=== PATIENT | female | born 1965 | race Caucasian/White ===

== ENCOUNTER 2024-07-07 21:49 | Inpatient (IN) | payer MEDICARE, MEDICAID, SELFPAY ==
[2024-07-07 22:20] VITALS: RESP 18
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
[2024-07-08] MEDS: hydrOXYzine HCL 25 MG TABLET PO (06:15)
[2024-07-08] MEDS: Levothyroxine Sodium 175 MCG TABLET PO (06:15)
[2024-07-08 08:00] VITALS: BP 170/87; PULSE 87; RESP 20; TEMP 36.6; O2SAT 93
[2024-07-08 08:12] LABS: Glucose, Whole Blood 160 mg/dL (60-115)
[2024-07-08] MEDS: Acetaminophen 325 MG TABLET 650 MG PO (08:25)
[2024-07-08] MEDS: Gabapentin 300 MG CAPSULE PO ×3 (08:26→20:21)
[2024-07-08] MEDS: metFORMIN HCl 1,000 MG TABLET 2000 MG PO ×2 (08:26→16:47)
[2024-07-08] MEDS: Cholecalciferol (Vitamin D3) 10 MCG TABLET 20 MCG PO (08:30)
[2024-07-08] MEDS: Aspirin 81 MG TAB.CHEW PO (08:30)
[2024-07-08] MEDS: Omeprazole 20 MG CAPSULE.DR PO (08:30)
[2024-07-08] MEDS: Loratadine 10 MG TABLET PO (08:30)
[2024-07-08] MEDS: amantadine HCL 100 MG CAPSULE PO ×3 (09:03→20:21)
[2024-07-08] MEDS: SITagliptin Phosphate 100 MG TABLET PO (09:46)
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
[2024-07-08] MEDS: Vortioxetine Hydrobromide 10 MG TABLET PO (16:46)
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
[2024-07-08 20:00] VITALS: BP 161/101; PULSE 90; RESP 16; TEMP 36.6; O2SAT 100
[2024-07-08 20:20] VITALS: BP 161/101
[2024-07-08] MEDS: Prazosin HCL 1 MG CAPSULE PO (20:20)
[2024-07-08] MEDS: Zolpidem Tartrate 5 MG TABLET 10 MG PO (20:20)
[2024-07-08] MEDS: QUEtiapine Fumarate 400 MG TABLET 800 MG PO (20:21)
[2024-07-08] MEDS: LORazepam 1 MG TABLET 2 MG PO (20:21)
[2024-07-08 20:46] LABS: Glucose, Whole Blood 147 mg/dL (60-115)
[2024-07-09] MEDS: Levothyroxine Sodium 175 MCG TABLET PO (06:22)
[2024-07-09 07:30] VITALS: BP 110/56; PULSE 98; RESP 14; TEMP 36.8; O2SAT 93
[2024-07-09 07:53] LABS: Glucose, Whole Blood 137 mg/dL (60-115)
[2024-07-09] MEDS: Aspirin 81 MG TAB.CHEW PO (08:26)
[2024-07-09] MEDS: amantadine HCL 100 MG CAPSULE PO ×3 (08:26→20:12)
[2024-07-09] MEDS: metFORMIN HCl 1,000 MG TABLET 2000 MG PO ×2 (08:26→17:41)
[2024-07-09] MEDS: Loratadine 10 MG TABLET PO (08:26)
[2024-07-09] MEDS: Omeprazole 20 MG CAPSULE.DR PO (08:26)
[2024-07-09] MEDS: SITagliptin Phosphate 100 MG TABLET PO (08:26)
[2024-07-09] MEDS: Cholecalciferol (Vitamin D3) 10 MCG TABLET 20 MCG PO (08:26)
[2024-07-09] MEDS: Atorvastatin Calcium 80 MG TABLET PO (08:26)
[2024-07-09] MEDS: Gabapentin 300 MG CAPSULE PO ×3 (08:26→20:12)
--- NOTE | 2024-07-09 09:09 | P.PNPSI_ITS ---
Subjective Subjective Date of Service: 07/09/24 Reason For Visit: PTSD Shabbirine Personality DO Subjective Notes: Conditional Voluntary Interim History: The nursing staff reported the patient was guarded, showed full range of affect but with poor appetite. She was assessed by PT yesterday, she is using her walker. She slept well last night but she admitted to the staff that she is scared to go to sleep due to nightmares. She was assessed by the medical team, she had an exploratory laparoscopy and apparently she has some stitches. On interview the patient denies new symptoms. I offered an increase of her prazosin to target nightmares but she reported that she is doing okay. Her main complaint niece that she could not sleep since her roommate yells at night Mental Status Exam Mental Status Exam Patient Appearance: Well Grooomed Patient Orientation: Person and Situation Level of Consciousness: Awake and Appropriate Patient Behavior: Guarded and Passive Mood Description: Withdrawn Affect Description: Constricted Patient Cognition Impaired: Yes Ability to Follow Directions: Good Speech Pattern: Clear Hallucinations: None Delusions: Not Present Thought Process: Distracted and Slowed Thinking Thought Content: positive for [place] and positive for Poverty of Content Judgement: Fair Diagnostics Vital Signs (24Hr): Vital Signs - 24 hr 07/08/24 20:00 07/08/24 20:20 07/09/24 07:30 Temperature 97.8 F 98.3 F Pulse Rate 90 98 Respiratory Rate 16 14 Blood Pressure 161/101 H 161/101 H 110/56 L Pulse Oximetry 100 93 Oxygen Delivery Method Room Air Room Air Labs Labs: Laboratory Results - last 48 hr 07/08/24 07/08/24 07/09/24 08:07 20:41 07:49 POC Glucose 160 H 147 H 137 H Medications Medications Current Medications Acetaminophen (Acetaminophen 325 Mg Tablet) 650 mg PO Q6H PRN PRN Reason: Headache/Pain, Scale 1-10 Last Admin: 07/08/24 08:25 Dose: 650 mg Al Hydroxide/Mg Hydroxide (Magnesium Hydrox/Alum Hydrox 30 Ml Oral.Susp) 30 ml PO Q6H PRN PRN Reason: Heartburn/Nausea Amantadine HCl (Amantadine Hcl 100 Mg Capsule) 100 mg PO TID [facility] Last Admin: 07/09/24 08:26 Dose: 100 mg Aspirin (Aspirin 81 Mg Tab.Chew) 81 mg PO DAILY [facility] Last Admin: 07/09/24 08:26 Dose: 81 mg Atorvastatin Calcium (Atorvastatin Calcium 80 Mg Tablet) 80 mg PO DAILY [facility] Last Admin: 07/09/24 08:26 Dose: 80 mg Gabapentin (Gabapentin 300 Mg Capsule) 300 mg PO TID [facility] Last Admin: 07/09/24 08:26 Dose: 300 mg Hydroxyzine HCl (Hydroxyzine Hcl 25 Mg Tablet) 25 mg PO Q6H PRN PRN Reason: mild anxiety Last Admin: 07/08/24 06:15 Dose: 25 mg Levothyroxine Sodium (Levothyroxine Sodium 175 Mcg Tablet) 175 mcg PO DAILY@0600 [facility] Last Admin: 07/09/24 06:22 Dose: 175 mcg Loperamide HCl (Loperamide Hcl 2 Mg Capsule) 2 mg PO Q6H PRN PRN Reason: Diarrhea Loratadine (Loratadine 10 Mg Tablet) 10 mg PO DAILY [facility] Last Admin: 07/09/24 08:26 Dose: 10 mg Lorazepam (Lorazepam 1 Mg Tablet) 2 mg PO BEDTIME PRN PRN Reason: insomnia Last Admin: 07/08/24 20:21 Dose: 2 mg Magnesium Hydroxide (Milk Of Magnesia 30 Ml Oral.Susp) 30 ml PO DAILY PRN PRN Reason: Constipation Metformin HCl (Metformin Hcl 1,000 Mg Tablet) 2,000 mg PO BIDWM [facility] Last Admin: 07/09/24 08:26 Dose: 2,000 mg Nicotine Polacrilex (Nicotine Polacrilex 2 Mg Gum) 4 mg BUCCAL Q2H PRN PRN Reason: Nicotine Cravings Omeprazole (Omeprazole 20 Mg Capsule.Dr) 20 mg PO DAILY [facility] Last Admin: 07/09/24 08:26 Dose: 20 mg Ondansetron HCl (Ondansetron Odt 4 Mg Tab.Rapdis) 4 mg TRANSLINGU Q6H PRN PRN Reason: Nausea and Vomiting Prazosin HCl (Prazosin Hcl 1 Mg Capsule) 2 mg PO ONCE ONE; Protocol Stop: 07/09/24 21:01 Prazosin HCl (Prazosin Hcl 1 Mg Capsule) 3 mg PO BEDTIME [facility]; Protocol Quetiapine Fumarate (Quetiapine Fumarate 400 Mg Tablet) 800 mg PO BEDTIME [facility] Last Admin: 07/08/24 20:21 Dose: 800 mg Sitagliptin Phosphate (Sitagliptin Phosphate 100 Mg Tablet) 100 mg PO DAILY [facility] Last Admin: 07/09/24 08:26 Dose: 100 mg Vitamin D (Cholecalciferol (Vitamin D3) 10 Mcg Tablet) 20 mcg PO DAILY [facility] Last Admin: 07/09/24 08:26 Dose: 20 mcg Vortioxetine (Vortioxetine Hydrobromide 10 Mg Tablet) 10 mg PO DAILY@1600 [facility] Last Admin: 07/08/24 16:46 Dose: 10 mg Zolpidem Tartrate (Zolpidem Tartrate 5 Mg Tablet) 10 mg PO BEDTIME [facility] Last Admin: 07/08/24 20:20 Dose: 10 mg Allergies Allergies Allergy/AdvReac Type Severity Reaction Status Date / Time ketorolac Allergy Unknown HEADACHES Unverified 01/26/20 17:28 lithium Allergy Unknown UNKNOWN Unverified 01/26/20 17:28 meperidine Allergy Unknown NAUSEA/VOMI Unverified 01/26/20 17:28 TING risperidone Allergy Unknown UNKNOWN Unverified 01/26/20 17:28 bee pollen Allergy Unknown Verified 07/07/24 22:04 bee venom protein (honey bee) Allergy Unknown Verified 07/07/24 22:04 bupropion Allergy Unknown Verified 07/07/24 22:04 chlorproethazine Allergy Unknown Verified 07/07/24 22:04 chlorpromazine Allergy Unknown Verified 07/07/24 22:04 lurasidone Allergy Unknown Verified 07/07/24 22:04 mirtazapine Allergy Unknown Verified 07/07/24 22:04 thioridazine [From Mellaril] Allergy Unknown Verified 07/07/24 22:04 ziprasidone Allergy Unknown Verified 07/07/24 22:04 Assessment & Plan Assessment & Plan (1) Borderline personality disorder: Status: Acute Code(s): F60.3 - Borderline personality disorder (2) Chronic post-traumatic stress disorder (PTSD): Status: Acute Code(s): F43.12 - Post-traumatic stress disorder, chronic Plan continue home regimen. POC for DM monitoring. zofran PRN n/v. PT eval for need for walker. prazosin titration for nightmares and insomnia. Reason for continued inpatient stay Substantial Risk for: inability to function, rapid decompensation and med/psych decompensation Time Spent With Patient Time: Total time managing care of this patient today ___20_ minutes.
[2024-07-09] MEDS: Ondansetron ODT 4 MG TAB.RAPDIS TRANSLINGU (11:32)
[2024-07-09] MEDS: Loperamide HCl 2 MG CAPSULE PO ×2 (11:32→17:41)
[2024-07-09] MEDS: Vortioxetine Hydrobromide 10 MG TABLET PO (17:41)
[2024-07-09 20:00] VITALS: BP 122/64; PULSE 90; RESP 15; TEMP 36.3; O2SAT 95
[2024-07-09 20:12] VITALS: BP 122/64
[2024-07-09] MEDS: QUEtiapine Fumarate 400 MG TABLET 800 MG PO (20:12)
[2024-07-09] MEDS: LORazepam 1 MG TABLET 2 MG PO (20:12)
[2024-07-09] MEDS: Prazosin HCL 1 MG CAPSULE 2 MG PO (20:12)
[2024-07-09] MEDS: Zolpidem Tartrate 5 MG TABLET 10 MG PO (20:13)
[2024-07-09 20:20] LABS: Glucose, Whole Blood 129 mg/dL (60-115)
[2024-07-10] MEDS: Levothyroxine Sodium 175 MCG TABLET PO (06:03)
[2024-07-10 07:59] VITALS: BP 102/52; PULSE 106; RESP 14; TEMP 36.3; O2SAT 96
[2024-07-10] MEDS: amantadine HCL 100 MG CAPSULE PO (08:28)
[2024-07-10] MEDS: SITagliptin Phosphate 100 MG TABLET PO (08:28)
[2024-07-10] MEDS: Omeprazole 20 MG CAPSULE.DR PO (08:28)
[2024-07-10] MEDS: Cholecalciferol (Vitamin D3) 10 MCG TABLET 20 MCG PO (08:28)
[2024-07-10] MEDS: Atorvastatin Calcium 80 MG TABLET PO (08:28)
[2024-07-10] MEDS: Acetaminophen 325 MG TABLET 650 MG PO (08:28)
[2024-07-10] MEDS: Aspirin 81 MG TAB.CHEW PO (08:28)
[2024-07-10] MEDS: metFORMIN HCl 1,000 MG TABLET 2000 MG PO (08:28)
[2024-07-10] MEDS: Gabapentin 300 MG CAPSULE PO (08:29)
[2024-07-10] MEDS: Loperamide HCl 2 MG CAPSULE PO (08:29)
[2024-07-10] MEDS: Loratadine 10 MG TABLET PO (08:29)
--- NOTE | 2024-07-10 08:52 | P.PNPSI_ITS ---
Subjective Subjective Date of Service: 07/10/24 Reason For Visit: PTSD Rambo Personality DO Subjective Notes: Conditional Voluntary Interim History: The nursing staff reported the patient denies depression she had been medication compliant and attended groups. She slept poorly last night since her roommate was loud. She had diarrhea. On interview the patient reports that she is anxious and dysphoric upset about her poor sleep. Mental Status Exam Mental Status Exam Patient Appearance: Appropriate Patient Orientation: Person and Situation Level of Consciousness: Awake and Appropriate Patient Behavior: Guarded and Passive Mood Description: Withdrawn Affect Description: Constricted Patient Cognition Impaired: Yes Ability to Follow Directions: Good Speech Pattern: Clear Hallucinations: None Delusions: Not Present Thought Process: Goal Oriented Thought Content: positive for [place] and positive for Poverty of Content Judgement: Poor Diagnostics Vital Signs (24Hr): Vital Signs - 24 hr 07/09/24 20:00 07/09/24 20:12 07/10/24 07:59 Temperature 97.4 F 97.3 F Pulse Rate 90 106 H Respiratory Rate 15 14 Blood Pressure 122/64 122/64 102/52 L Pulse Oximetry 95 96 Oxygen Delivery Method Room Air Room Air Labs Labs: Laboratory Results - last 48 hr 07/08/24 07/09/24 07/09/24 20:41 07:49 20:11 POC Glucose 147 H 137 H 129 H Medications Medications Current Medications Acetaminophen (Acetaminophen 325 Mg Tablet) 650 mg PO Q6H PRN PRN Reason: Headache/Pain, Scale 1-10 Last Admin: 07/10/24 08:28 Dose: 650 mg Al Hydroxide/Mg Hydroxide (Magnesium Hydrox/Alum Hydrox 30 Ml Oral.Susp) 30 ml PO Q6H PRN PRN Reason: Heartburn/Nausea Amantadine HCl (Amantadine Hcl 100 Mg Capsule) 100 mg PO TID [facility] Last Admin: 07/10/24 08:28 Dose: 100 mg Aspirin (Aspirin 81 Mg Tab.Chew) 81 mg PO DAILY [facility] Last Admin: 07/10/24 08:28 Dose: 81 mg Atorvastatin Calcium (Atorvastatin Calcium 80 Mg Tablet) 80 mg PO DAILY [facility] Last Admin: 07/10/24 08:28 Dose: 80 mg Gabapentin (Gabapentin 300 Mg Capsule) 300 mg PO TID [facility] Last Admin: 07/10/24 08:29 Dose: 300 mg Hydroxyzine HCl (Hydroxyzine Hcl 25 Mg Tablet) 25 mg PO Q6H PRN PRN Reason: mild anxiety Last Admin: 07/08/24 06:15 Dose: 25 mg Levothyroxine Sodium (Levothyroxine Sodium 175 Mcg Tablet) 175 mcg PO DAILY@06 00 [facility] Last Admin: 07/10/24 06:03 Dose: 175 mcg Loperamide HCl (Loperamide Hcl 2 Mg Capsule) 2 mg PO Q6H PRN PRN Reason: Diarrhea Last Admin: 07/10/24 08:29 Dose: 2 mg Loratadine (Loratadine 10 Mg Tablet) 10 mg PO DAILY [facility] Last Admin: 07/10/24 08:29 Dose: 10 mg Lorazepam (Lorazepam 1 Mg Tablet) 2 mg PO BEDTIME PRN PRN Reason: insomnia Last Admin: 07/09/24 20:12 Dose: 2 mg Magnesium Hydroxide (Milk Of Magnesia 30 Ml Oral.Susp) 30 ml PO DAILY PRN PRN Reason: Constipation Metformin HCl (Metformin Hcl 1,000 Mg Tablet) 2,000 mg PO BIDWM [facility] Last Admin: 07/10/24 08:28 Dose: 2,000 mg Nicotine Polacrilex (Nicotine Polacrilex 2 Mg Gum) 4 mg BUCCAL Q2H PRN PRN Reason: Nicotine Cravings Omeprazole (Omeprazole 20 Mg Capsule.Dr) 20 mg PO DAILY [facility] Last Admin: 07/10/24 08:28 Dose: 20 mg Ondansetron HCl (Ondansetron Odt 4 Mg Tab.Rapdis) 4 mg TRANSLINGU Q6H PRN PRN Reason: Nausea and Vomiting Last Admin: 07/09/24 11:32 Dose: 4 mg Prazosin HCl (Prazosin Hcl 1 Mg Capsule) 3 mg PO BEDTIME [facility]; Protocol Quetiapine Fumarate (Quetiapine Fumarate 400 Mg Tablet) 800 mg PO BEDTIME [facility] Last Admin: 07/09/24 20:12 Dose: 800 mg Sitagliptin Phosphate (Sitagliptin Phosphate 100 Mg Tablet) 100 mg PO DAILY [facility] Last Admin: 07/10/24 08:28 Dose: 100 mg Vitamin D (Cholecalciferol (Vitamin D3) 10 Mcg Tablet) 20 mcg PO DAILY [facility] Last Admin: 07/10/24 08:28 Dose: 20 mcg Vortioxetine (Vortioxetine Hydrobromide 10 Mg Tablet) 10 mg PO DAILY@1600 [facility] Last Admin: 07/09/24 17:41 Dose: 10 mg Zolpidem Tartrate (Zolpidem Tartrate 5 Mg Tablet) 10 mg PO BEDTIME [facility] Last Admin: 07/09/24 20:13 Dose: 10 mg Allergies Allergies Allergy/AdvReac Type Severity Reaction Status Date / Time ketorolac Allergy Unknown HEADACHES Unverified 01/26/20 17:28 lithium Allergy Unknown UNKNOWN Unverified 01/26/20 17:28 meperidine Allergy Unknown NAUSEA/VOMI Unverified 01/26/20 17:28 TING risperidone Allergy Unknown UNKNOWN Unverified 01/26/20 17:28 bee pollen Allergy Unknown Verified 07/07/24 22:04 bee venom protein (honey bee) Allergy Unknown Verified 07/07/24 22:04 bupropion Allergy Unknown Verified 07/07/24 22:04 chlorproethazine Allergy Unknown Verified 07/07/24 22:04 chlorpromazine Allergy Unknown Verified 07/07/24 22:04 lurasidone Allergy Unknown Verified 07/07/24 22:04 mirtazapine Allergy Unknown Verified 07/07/24 22:04 thioridazine [From Mellaril] Allergy Unknown Verified 07/07/24 22:04 ziprasidone Allergy Unknown Verified 07/07/24 22:04 Assessment & Plan Assessment & Plan (1) Borderline personality disorder: Status: Acute Code(s): F60.3 - Borderline personality disorder (2) Chronic post-traumatic stress disorder (PTSD): Status: Acute Code(s): F43.12 - Post-traumatic stress disorder, chronic Plan continue home regimen. POC for DM monitoring. zofran PRN n/v. PT eval for need for walker. prazosin titration for nightmares and insomnia. 3/2 keep same treatment. Reason for continued inpatient stay Substantial Risk for: inability to function, rapid decompensation and med/psych decompensation Time Spent With Patient Time: Total time managing care of this patient today __20__ minutes.
[2024-07-10 10:47] LABS: Estimated Glomerular Filt Rate 11
[2024-07-10 11:35] LABS: Glucose, Whole Blood 141 mg/dL (60-115)
--- NOTE | 2024-07-10 11:56 | P.DS_ITS ---
DS: Providers Provider Date of Service: 07/10/24 Date of admission: 07/07/24 21:49 Date of discharge: 07/10/24 Primary care physician: Unknown Physician Consults: 07/07/24 21:58 Consult to Hospitalist Routine Comment: Consulting Provider: [facility] [place] [place] Hospitalists Reason For Exam: Transfer pt DS: Diagnosis Discharge Diagnosis (1) Borderline personality disorder: Status: Acute (2) Chronic post-traumatic stress disorder (PTSD): Status: Acute DS: Medications Discharge Medications Home Medications: Home Medications ?Medication ?Instructions ?Recorded ?Confirmed amantadine HCl 100 mg capsule 100 mg PO TID 07/07/24 07/07/24 aspirin 81 mg tablet 81 mg PO DAILY 07/07/24 07/07/24 atorvastatin 80 mg tablet 80 mg PO DAILY 07/07/24 07/07/24 budesonide-formoterol HFA 160 2 puff inhalation BID 07/07/24 07/07/24 mcg-4.5 mcg/actuation aerosol inhaler cholecalciferol (vitamin D3) 50 2,000 unit PO DAILY 07/07/24 07/07/24 mcg (2,000 unit) capsule gabapentin 300 mg capsule 300 mg PO TID 07/07/24 07/07/24 levothyroxine 175 mcg tablet 175 mcg PO DAILY 07/07/24 07/07/24 loperamide 2 mg capsule 2 mg PO QID PRN Diarrhea 07/07/24 07/07/24 loratadine 10 mg tablet 10 mg PO DAILY 07/07/24 07/07/24 metformin 500 mg tablet,extended 2,000 mg PO AC 07/07/24 07/07/24 release 24 hr pantoprazole 40 mg tablet,delayed 40 mg PO DAILY 07/07/24 07/07/24 release quetiapine 400 mg tablet 800 mg PO BEDTIME 07/07/24 07/07/24 sitagliptin phosphate 100 mg 100 mg PO DAILY 07/07/24 07/07/24 tablet (Januvia) vortioxetine 10 mg tablet 10 mg PO DAILY 07/07/24 07/07/24 (Trintellix) zolpidem 10 mg tablet 10 mg PO BEDTIME 07/07/24 07/07/24 Mental Status Exam Mental Status Exam Patient Appearance: Appropriate Patient Orientation: Person, Place and Situation Level of Consciousness: Awake and Appropriate Patient Behavior: Guarded and Passive Mood Description: Withdrawn Affect Description: Calm Ability to Follow Directions: Good Speech Pattern: Clear Hallucinations: None Delusions: Not Present Thought Process: Distracted and Slowed Thinking Thought Content: positive for [place] and positive for Poverty of Content Judgement: Fair Data Data Completed and Pending Completed studies during hospitalization [Text1]: 07/08/24 07/08/24 07/09/24 08:07 20:41 07:49 Creatinine Estim Creat Clear Calc Estimated GFR POC Glucose 160 H 147 H 137 H 07/09/24 07/10/24 07/10/24 20:11 07:52 10:01 Creatinine 4.04 H* Estim Creat Clear Calc TNP Estimated GFR 11 POC Glucose 129 H 141 H DS: Summary Hospital Course Hospital Course: The patient was initially admitted for self-harming behavior status past exploratory laparotomy after she stopped herself in the abdomen in a suicidal attempt. She was initially treated at [facility] and transferring to this facility for psychiatric stabilization. On admission the patient was pleasant cooperative able to contract for safety and remorseful of her actions. We restarted her regular psychiatric treatment. Today she had a creatinine level over 4.0 and she was assessed by the medical team who decided to transfer to Medicine. Time spent discussing smoking cessation with patient: 3 to 10 minutes Status at Discharge Cognitive/behavioral status at discharge: At baseline Functional status at discharge: independent ambulation Overall status at discharge: patient is back to baseline Time Spent with Patient Time attestation: Total time managing care of this patient today _30___ minutes. Time spent: Less than 30 minutes Discharge Plan Discharge Anticipated Discharge Date/Time: 07/10/24 11:58 Patient Disposition: er Acute Care Hospital Discharge Diagnosis: Major depressive disorder Borderline personality disorder Renal failure Status post self-inflicted wound on the abdomen Referrals: Physician,Unknown J [Primary Care Provider] - 1 Week Discharge Medications: New atorvastatin 80 mg Tablet 80 mg PO DAILY 30 Days Qty: 30 0RF prazosin 1 mg Capsule 3 mg PO BEDTIME 30 Days Qty: 90 0RF Protocol: Hold for SBP< HOLD for SBP < : 90 amantadine HCl 100 mg Capsule 100 mg PO TID 30 Days Qty: 90 0RF gabapentin 300 mg Capsule 300 mg PO TID 30 Days Qty: 90 0RF aspirin 81 mg Tablet,Chewable 81 mg PO DAILY 30 Days Qty: 30 0RF hydroxyzine HCl 25 mg Tablet 25 mg PO Q6H PRN (Reason: mild anxiety) 30 Days Qty: 60 0RF lorazepam 1 mg Tablet 2 mg PO BEDTIME PRN (Reason: insomnia) 30 Days Qty: 30 0RF loratadine 10 mg Tablet 10 mg PO DAILY 30 Days Qty: 30 0RF quetiapine 400 mg Tablet 800 mg PO BEDTIME 30 Days Qty: 60 0RF Trintellix 10 mg Tablet 10 mg PO DAILY@1600 Qty: 30 0RF levothyroxine 175 mcg Tablet 175 mcg PO DAILY@0600 30 Days Qty: 30 0RF loperamide 2 mg Capsule 2 mg PO Q6H PRN (Reason: Diarrhea) 30 Days Qty: 30 0RF omeprazole 20 mg Capsule,Delayed Release(Dr/Ec) 20 mg PO DAILY 30 Days Qty: 30 0RF zolpidem 5 mg Tablet 10 mg PO BEDTIME 30 Days Qty: 60 0RF ondansetron 4 mg Tablet,Disintegrating 4 mg translingual Q6H PRN (Reason: Nausea And Vomiting) 30 Days Qty: 30 0RF Januvia 100 mg Tablet 100 mg PO DAILY Qty: 30 0RF cholecalciferol (vitamin D3) [Vitamin D3] 10 mcg (400 unit) Tablet 20 mcg PO DAILY 30 Days Qty: 60 0RF Discontinued levothyroxine 175 mcg tablet 175 mcg PO DAILY atorvastatin 80 mg Tablet 80 mg PO DAILY loperamide 2 mg capsule 2 mg PO QID PRN (Reason: Diarrhea) amantadine HCl 100 mg capsule 100 mg PO TID pantoprazole 40 mg tablet,delayed release (DR/EC) 40 mg PO DAILY gabapentin 300 mg capsule 300 mg PO TID aspirin 81 mg Tablet 81 mg PO DAILY zolpidem 10 mg tablet 10 mg PO BEDTIME metformin 500 mg tablet extended release 24 hr 2,000 mg PO AC loratadine 10 mg Tablet 10 mg PO DAILY quetiapine 400 mg tablet 800 mg PO BEDTIME Januvia 100 mg tablet 100 mg PO DAILY budesonide-formoterol 160-4.5 mcg/actuation Hfa Aerosol Inhaler 2 puff INHALATION BID cholecalciferol (vitamin D3) 50 mcg (2,000 unit) capsule 2,000 unit PO DAILY Trintellix 10 mg Tablet 10 mg PO DAILY Discharge Orders: Discharge Order (Routine); Ordered 07/10/24 Ordered By: Amish Mcrae Diet: Advance to usual diet Activity on Discharge: As tolerated Stand Alone Forms: Patient Portal Discharge page Print Language: Portuguese Care Plan Goals: PATIENT TRANSFERRED TO MEDICINE Health Concerns: PATIENT TRANSFERRED TO MEDICINE Plan of Treatment: PATIENT TRANSFERRED TO MEDICINE Assessment: The patient is a middle-aged female with a has history of borderline personality disorder that was transferred from [facility] for suicidality after she self stopped herself on the abdomen in a suicidal attempt. Today she had creatinine level of 4.0 and the medical team decided to transfer her there for medical clearance.
[2024-07-10 12:11] LABS: MANUAL DIFF FLAG NO
[2024-07-10 12:15] LABS: Basophils Percent Auto 0.2 % (0-2); Eosinophils Absolute Auto 0.2 X10*3/uL (0.0-0.4); Eosinophils Percent Auto 2.1 % (0-4); Hematocrit 31.7 % (37.0-47.0); Hemoglobin 10.3 g/dl (12.0-16.0); Imm Gran Abs Auto 0.09 X10*3/uL (0.00-0.03); Lymphocytes Percent Auto 21.9 % (20-40); Mean Corpuscular HGB Conc 32.5 g/dl (31.0-35.0); Mean Corpuscular Hemoglobin 31.3 pg (27.0-33.0); Mean Corpuscular Volume 96.4 fL (80.0-98.0); Mean Platelet Volume 9.3 fL (9.4-12.3); Monocytes Absolute Auto 0.9 X10*3/uL (0.1-1.2); Monocytes Percent Auto 10.3 % (2-11); Neutrophils Absolute Auto 5.9 x10*3/uL (2.0-8.3); Neutrophils Percent Auto 64.5 % (45-73); Platelet Count 140 X10*3/uL (160-400); Red Blood Count 3.29 X10*6/uL (4.20-5.50); Red Cell Distribution Width 13.9 % (11.0-16.0); White Blood Count 9.1 X10*3/uL (4.8-10.8)
[2024-07-10 12:34] LABS: Cholesterol 139 mg/dL (<200); HDL Cholesterol 30 mg/dL (>40); LDL Cholesterol Calculated 77 mg/dL (<100); Magnesium 1.5 mg/dL (1.6-2.6); Triglycerides 164 mg/dL (<150)
[2024-07-10 12:49] LABS: Free T4 (Free Thyroxine) 1.25 ng/dL (0.71-1.85); Thyroid Stimulating Hormone 7.22 uIU/mL (0.32-4.0)
[2024-07-10 13:02] LABS: Folate 12.5 ng/mL (> or = 4.0); Vitamin B12 260 pg/mL (200-900)
[2024-07-10 13:10] LABS: Estimated Average Glucose 140 mg/dL; Hemoglobin A1C 118.4433 umol/L; Hemoglobin A1c % 6.5 % (<6.0); Total Hemoglobin (HGBA1C) 2476.9373 umol/L
[2024-07-10 13:15] LABS: Lactic Acid 2.3 mmol/L (0.5-2.0)
[2024-07-10 13:19] LABS: Alanine Aminotransferase 10 U/L (0-31); Albumin Level 3.8 g/dL (3.5-5.0); Alkaline Phosphatase 69 U/L (39-117); Anion Gap 20 (12-20); Aspartate Amino Transferase 22 U/L (5-31); Bilirubin Direct 0.1 mg/dL (0.0-0.5); Bilirubin Total 0.5 mg/dL (0.0-1.0); Blood Urea Nitrogen 52 mg/dL (9-16); Calcium 8.4 mg/dL (8.4-10.2); Carbon Dioxide 23 mmol/L (22-29); Chloride 102 mmol/L (96-108); Estimated Glomerular Filt Rate 12; Glucose Random 129 mg/dL (60-115); Potassium 4.5 mmol/L (3.3-5.1); Sodium 140 mmol/L (135-145); Total Protein 6.7 g/dL (6.5-8.0)
[2024-07-10 13:23] VITALS: BP 106/55; PULSE 96; RESP 16; TEMP 36.8; O2SAT 92
== END 2024-07-10 12:21 | disposition short-term general hospital (02) | DRG 881 ==
PROVIDERS: Clinical Nurse Specialist Psychiatric/Mental Health, Adult; Internal Medicine; Student in an Organized Health Care Education/Training Program; Admitting Provider Psychiatry & Neurology Psychiatry; Visit Provider Psychiatry & Neurology Psychiatry
DX: F32.9 Major depressive disorder, single episode, unspecified (principal); F60.3 Borderline personality disorder; F43.12 Post-traumatic stress disorder, chronic; E03.9 Hypothyroidism, unspecified; E11.40 Type 2 diabetes mellitus with diabetic neuropathy, unspecified; N19 Unspecified kidney failure; J45.909 Unspecified asthma, uncomplicated; E78.5 Hyperlipidemia, unspecified; Z91.51 Personal history of suicidal behavior; Z91.52 Personal history of nonsuicidal self-harm; Z79.890 Hormone replacement therapy; Z79.899 Other long term (current) drug therapy
CPT/HCPCS: 36415; 74018; 74176; 80048; 80053; 80061; 80076; 81003; 82565; 82607; 82746; 82947; 83036; 83605; 83690; 83735; 84439; 84443; 85025; 85027; 90656; J1644; S9485

== ENCOUNTER → 2024-07-07 21:49 | Outpatient (BNV) | payer MEDICARE, MEDICAID, SELFPAY | PROVIDERS: Admitting Provider Psychiatry & Neurology Psychiatry; Visit Provider Psychiatry & Neurology Psychiatry | DX: F60.3 Borderline personality disorder (principal); F43.12 Post-traumatic stress disorder, chronic | CPT/HCPCS: 90792; 99232; 99238; 99499 ==

== ENCOUNTER → 2024-07-07 21:49 | Outpatient (BNV) | payer MEDICARE, MEDICAID, SELFPAY | PROVIDERS: Admitting Provider Psychiatry & Neurology Psychiatry; Visit Provider Student in an Organized Health Care Education/Training Program | DX: Z02.2 Encounter for examination for admission to residential institution (principal) | CPT/HCPCS: 99429 ==

== ENCOUNTER 2024-07-10 12:04 | Outpatient (BNV) | payer MEDICARE, MEDICAID, SELFPAY | END 2024-07-10 14:01 | PROVIDERS: Admitting Provider Internal Medicine; Visit Provider Radiology Vascular & Interventional Radiology | DX: K59.00 Constipation, unspecified (principal); Z90.49 Acquired absence of other specified parts of digestive tract | CPT/HCPCS: 74176 ==

== ENCOUNTER 2024-07-10 12:04 | Inpatient (IN) | payer MEDICARE, MEDICAID, SELFPAY ==
--- NOTE | ~2024-07-10 | CT_ITS ---
CLINICAL HISTORY: gen, recent abd surgery CT abdomen and pelvis without contrast Comparison: None Findings: The lung bases are clear. Mild hepatosplenomegaly. The gallbladder is surgically absent. The adrenal glands, pancreas, kidneys, ureters and bladder are unremarkable. No bowel obstruction, free air or abscess. Uterus and adnexa are unremarkable. No acute osseous finding. Postsurgical changes along the midline and left abdominal soft tissues. No subcutaneous abscess Impression: No definite acute process. Mild hepatosplenomegaly. Subcutaneous postsurgical changes along the anterior abdomen. No abscess. This document has been electronically signed by: Santiago Nguyen MD on 07/10/2024 15:10:38
--- NOTE | 2024-07-10 12:10 | P.HPHOSP_ITS ---
History of Present Illness Date of Service: 07/10/24 Chief Complaint: elevated creatinine 59F PMH DM hld, obesity, hypothyroid, ptsd, bipolar, history of suicide attempts, admitted to inpatient psych after suicide attempt 07/02/24 - stabbed self in luq abdomen, treated at [facility], then discharged to [facility] inpatient psy chiatry 07/08/24. At [facility] patient's creatinine was 1.3. Creatinine on 07/10/2024 is now 4.04. Patient reporting watery diarrhea 3-4 times per day, decreased intake. Denies any change in urine. Feeling fatigued otherwise no specific symptoms. Review of Systems Review of Systems: Yes all other systems are reviewed and are negative [facility] Medical History Bipolar disorder PTSD (post-traumatic stress disorder) IBS (irritable bowel syndrome) GERD (gastroesophageal reflux disease) Asthma Hypothyroidism Insulin dependent type 2 diabetes mellitus HLD (hyperlipidemia) Social History Household Members: Unknown / Unable to assess Housing: Apartment Patient Tobacco Use Status: Never used Tobacco service: No Sexual orientation: Straight/Heterosexual Meds Allergies Allergy/AdvReac Type Severity Reaction Status Date / Time ketorolac Allergy Unknown HEADACHES Unverified 01/26/20 17:28 lithium Allergy Unknown UNKNOWN Unverified 01/26/20 17:28 meperidine Allergy Unknown NAUSEA/VOMI Unverified 01/26/20 17:28 TING risperidone Allergy Unknown UNKNOWN Unverified 01/26/20 17:28 bee pollen Allergy Unknown Verified 07/07/24 22:04 bee venom protein (honey bee) Allergy Unknown Verified 07/07/24 22:04 bupropion Allergy Unknown Verified 07/07/24 22:04 chlorproethazine Allergy Unknown Verified 07/07/24 22:04 chlorpromazine Allergy Unknown Verified 07/07/24 22:04 lurasidone Allergy Unknown Verified 07/07/24 22:04 mirtazapine Allergy Unknown Verified 07/07/24 22:04 thioridazine [From Mellaril] Allergy Unknown Verified 07/07/24 22:04 ziprasidone Allergy Unknown Verified 07/07/24 22:04 Active Medications: Current Medications Acetaminophen (Acetaminophen 325 Mg Tablet) 650 mg PO Q6H PRN PRN Reason: Pain, Mild 1-3,fever,headache Amantadine HCl (Amantadine Hcl 100 Mg Capsule) 100 mg PO TID PENDING SALE TO [facility] Aspirin (Aspirin Enteric Coated 81 Mg Tablet.Dr) 81 mg PO DAILY [facility] Atorvastatin Calcium (Atorvastatin Calcium 40 Mg Tablet) 40 mg PO BEDTIME [facility] Calcium Carbonate (Calcium Carbonate 750 Mg Tab.Chew) 750 mg PO Q4H PRN PRN Reason: Heartburn Dextrose (Dextrose 50 % 25 Gm/50 Ml Syringe) 25 gm IVPUSH Q15M PRN; Protocol PRN Reason: per Hypoglycemia Standing Ord. Gabapentin (Gabapentin 100 Mg Capsule) 100 mg PO TID [facility]ISA Glucose (Glucose Gel 15 Gm Gel..Gram.) 15 gm PO Q15M PRN; Protocol PRN Reason: per Hypoglycemia Standing Ord. Heparin Sodium (Porcine) (Heparin Sodium,Porcine 5,000 Unit/Ml Vial) 5,000 unit SUBCUT Q8H [facility] Insulin Human Lispro (Insulin Lispro 100 Unit/Ml 3 Ml Vial) 0 unit SUBCUT QIDACHS [facility]END[facility] TO [facility]; Protocol Levothyroxine Sodium (Levothyroxine Sodium 175 Mcg Tablet) 175 mcg PO DAILY@0600 [facility]END[facility] Loratadine (Loratadine 10 Mg Tablet) 10 mg PO DAILY [facility] Magnesium Hydroxide (Milk Of Magnesia 30 Ml Oral.Susp) 30 ml PO DAILY PRN PRN Reason: Constipation Melatonin (Melatonin 3 Mg Tablet) 6 mg PO BEDTIME PRN PRN Reason: Insomnia Prazosin HCl (Prazosin Hcl 1 Mg Capsule) 3 mg PO BEDTIME [facility]; Protocol Quetiapine Fumarate (Quetiapine Fumarate 400 Mg Tablet) 800 mg PO BEDTIME [facility] Sodium Chloride (0.9 % Sodium Chloride Flush 3 Ml Syringe) 3 ml IVFLUSH QSHIFT PENDING SALE [facility] Vortioxetine (Vortioxetine Hydrobromide 10 Mg Tablet) 10 mg PO DAILY [facility] Physical Exam Vital Signs and Narrative: General: AO X 3, no acute distress Resp: CTA bilateral, no accessory muscles used CVS: S1,S2,RRR GI: soft, non tender, non distended Neuro: motor grossly intact, alert Psych: appropriate affect, appropriate insight Assessment and Plan (1) Chronic post-traumatic stress disorder (PTSD): Status: Acute Plan 59F PMH DM hld, obesity, hypothyroid, ptsd, bipolar, history of suicide attempt being transferred from inpatient psychiatry for acute kidney injury Acute kidney injury Possibly dehydration from diarrhea Rule out obstruction given recent abdominal trauma and surgery Check CT abdomen, follow up repeat labs, nephro eval, IV fluids, monitor Check stool studies Diabetes Hold metformin for RAJESH, insulin sliding scale Bipolar with recent suicide attempt Continue mood stabilizers, care team eval prior to discharge Hypothyroid Continue levothyroxine Obesity Weight loss recommended DVT prophylaxis with heparin subQ Full code Given degree of acute kidney injury likely require at least 2 midnights inpatient Quality Stroke Does the patient have a stroke diagnosis?: No VTE Prior VTE?: No VTE Risk Level:: Medical - moderate - high VTE Device Contraindication: Treatment Not Indicated VTE Drug Contraindication: N/A - Med Ordered
--- OUTSIDE RECORDS SUMMARY | 2024-07-10 12:25 | XMS_ITS | Continuity of Care Document ---
Author Organization [facility] Address [address] [place] [address] [address] [place], [place] Phone [phone] Care Team Providers Care Field Support Engineer Name Role Phone Ministerio Mayorga Care Team Information Veneer Stock Layer U navailable Social History Type Date Description Comments Sex Unknown
--- NOTE | 2024-07-10 13:19 | PC.NURSE ---
Attempt IV x 2, unable, Primary RN notified.
[2024-07-10 13:23] VITALS: BMI 49.3
[2024-07-10 13:32] LABS: Cancel Lactic Acid Canceled
[2024-07-10 14:05] VITALS: BP 108/57; PULSE 100; RESP 16; TEMP 36.4; O2SAT 92
[2024-07-10] MEDS: Gabapentin 100 MG CAPSULE PO ×2 (14:39→21:17)
[2024-07-10] MEDS: amantadine HCL 100 MG CAPSULE PO ×2 (14:39→21:17)
[2024-07-10] MEDS: Heparin Sodium,Porcine 5,000 UNIT/ML VIAL 5000 UNIT SUBCUT ×2 (15:15→21:16)
[2024-07-10 16:00] VITALS: BP 101/62; PULSE 94; RESP 20; TEMP 36.2; O2SAT 94
[2024-07-10 16:12] LABS: Glucose, Whole Blood 121 mg/dL (60-115)
--- NOTE | 2024-07-10 16:28 | MHC.CM.PN ---
PT REPORTS SHE LIVES ALONE AND HAS A PORTRAIT CONSULTANT EVERY THU AND FOR HOUSEWORK AND ERRANDS SHE IS ALSO ACTIVE WITH [facility] FOR CM, THERAPY AND PSYCH SERVICES PT USES A NEBULIZER AND ROLLATOR FOR DME PT SAYS SHE HAS NO ONE TO NAME A HCP PT STATES SHE HAS A NEW PT APPT WITH [facility] ON July. DCP: PT REPORTS SHE CAME FROM IN PSYCH AND EXPECTS TO RETURN
[2024-07-10] MEDS: Magnesium Oxide 400 MG TABLET PO (16:57)
[2024-07-10] MEDS: Flu Vacc TS2024-25(6mos up)/PF 0.5 ML SYRINGE IM (17:01)
[2024-07-10 19:35] VITALS: BP 125/60; PULSE 93; RESP 18; TEMP 37.1; O2SAT 92
[2024-07-10 20:02] LABS: Glucose, Whole Blood 104 mg/dL (60-115)
[2024-07-10] MEDS: Atorvastatin Calcium 40 MG TABLET PO (21:16)
[2024-07-10 21:17] VITALS: BP 110/59
[2024-07-10] MEDS: QUEtiapine Fumarate 400 MG TABLET 800 MG PO (21:17)
[2024-07-10] MEDS: Prazosin HCL 1 MG CAPSULE 3 MG PO (21:17)
[2024-07-11] MEDS: 0.9 % Sodium Chloride 1,000 ML 100 ML IVCONT ×3 (03:00→23:24)
[2024-07-11 03:12] VITALS: BP 115/59; PULSE 87; RESP 18; TEMP 37.1; O2SAT 94
[2024-07-11] MEDS: Levothyroxine Sodium 175 MCG TABLET PO (06:09)
[2024-07-11] MEDS: Heparin Sodium,Porcine 5,000 UNIT/ML VIAL 5000 UNIT SUBCUT ×3 (06:09→23:23)
[2024-07-11 06:26] LABS: Hematocrit 33.1 % (37.0-47.0); Hemoglobin 10.7 g/dl (12.0-16.0); Mean Corpuscular HGB Conc 32.3 g/dl (31.0-35.0); Mean Corpuscular Hemoglobin 30.8 pg (27.0-33.0); Mean Corpuscular Volume 95.4 fL (80.0-98.0); Mean Platelet Volume 9.8 fL (9.4-12.3); Platelet Count 166 X10*3/uL (160-400); Red Blood Count 3.47 X10*6/uL (4.20-5.50); Red Cell Distribution Width 13.7 % (11.0-16.0)
[2024-07-11 06:42] LABS: Anion Gap 15 (12-20); Blood Urea Nitrogen 44 mg/dL (9-16); Calcium 8.7 mg/dL (8.4-10.2); Carbon Dioxide 25 mmol/L (22-29); Chloride 105 mmol/L (96-108); Creatinine Clr Calc Pharmacy 34.3; Estimated Glomerular Filt Rate 20; Glucose Random 97 mg/dL (60-115); Potassium 4.3 mmol/L (3.3-5.1); Sodium 141 mmol/L (135-145)
[2024-07-11 07:14] VITALS: BP 109/59; PULSE 86; RESP 16; TEMP 36.2; O2SAT 95
[2024-07-11 07:46] LABS: Glucose, Whole Blood 104 mg/dL (60-115)
[2024-07-11 08:23] LABS: Appearance Urine Clear; Color Urine Yellow; Glucose Urine UA Negative (Negative); Leukocyte Esterase Urine Negative (Negative); Nitrite Urine Negative (Negative); PH 5.5 (5.0-9.0); Specific Gravity - Urine 1.015 (1.005-1.025); Urine Blood Negative (Negative); Urine Ketones Negative (Negative); Urine Protein Negative (Neg-Trace)
[2024-07-11] MEDS: Loratadine 10 MG TABLET PO (08:28)
[2024-07-11] MEDS: Aspirin Enteric Coated 81 MG TABLET.DR PO (08:28)
[2024-07-11] MEDS: Gabapentin 100 MG CAPSULE PO ×3 (08:28→20:48)
[2024-07-11] MEDS: amantadine HCL 100 MG CAPSULE PO ×3 (08:28→20:45)
--- NOTE | 2024-07-11 08:54 | P.PNIM_ITS ---
Subjective Subjective Date of Service: 07/11/24 Interval History: feeling well, diarrhea slowed Physical Exam 2 Vital Signs: Vital Signs: Last Vital Signs Temp 97.1 F 07/11/24 07:14 Pulse 86 07/11/24 07:14 Resp 16 07/11/24 07:14 BP 109/59 L 07/11/24 07:14 Pulse Ox 95 07/11/24 07:14 O2 Del Method Room Air 07/11/24 07:14 BMI result Body Mass Index 49.3 General: AO X 3, no acute distress Resp: CTA bilateral, no accessory muscles used CVS: S1,S2,RRR GI: soft, non tender, non distended Neuro: motor grossly intact, alert Psych: appropriate affect, appropriate insight Objective Data Active Medications Acetaminophen (Acetaminophen 325 Mg Tablet) 650 mg PO Q6H PRN PRN Reason: Pain, Mild 1-3,fever,headache Amantadine HCl (Amantadine Hcl 100 Mg Capsule) 100 mg PO TID [facility] Last Admin: 07/11/24 08:28 Dose: 100 mg Documented By: DUKE Aspirin (Aspirin Enteric Coated 81 Mg Tablet.Dr) 81 mg PO DAILY [facility] Last Admin: 07/11/24 08:28 Dose: 81 mg Documented By: DUKE Atorvastatin Calcium (Atorvastatin Calcium 40 Mg Tablet) 40 mg PO BEDTIME [facility] Last Admin: 07/10/24 21:16 Dose: 40 mg Documented By: MELLISSA Calcium Carbonate (Calcium Carbonate 750 Mg Tab.Chew) 750 mg PO Q4H PRN PRN Reason: Heartburn Dextrose (Dextrose 50 % 25 Gm/50 Ml Syringe) 25 gm IVPUSH Q15M PRN; Protocol PRN Reason: per Hypoglycemia Standing Ord. Gabapentin (Gabapentin 100 Mg Capsule) 100 mg PO TID [facility] Last Admin: 07/11/24 08:28 Dose: 100 mg Documented By: DUKE Glucose (Glucose Gel 15 Gm Gel..Gram.) 15 gm PO Q15M PRN; Protocol PRN Reason: per Hypoglycemia Standing Ord. Heparin Sodium (Porcine) (Heparin Sodium,Porcine 5,000 Unit/Ml Vial) 5,000 unit SUBCUT Q8H [facility] Last Admin: 07/11/24 06:09 Dose: 5,000 unit Documented By: MADINA Sodium Chloride (Ns) 1,000 mls @ 100 mls/hr IVCONT .Q10H [facility] Last Admin: 07/11/24 03:00 Dose: 100 mls/hr Documented By: MADINA Insulin Human Lispro (Insulin Lispro 100 Unit/Ml 3 Ml Vial) 0 unit SUBCUT QIDACHS [facility]; Protocol Last Admin: 07/11/24 07:51 Dose: Not Given Documented By: DUKE Non-Admin Reason: No Insulin Coverage Levothyroxine Sodium (Levothyroxine Sodium 175 Mcg Tablet) 175 mcg PO DAILY@0600 [facility] Last Admin: 07/11/24 06:09 Dose: 175 mcg Documented By: MADINA Loratadine (Loratadine 10 Mg Tablet) 10 mg PO DAILY [facility] Last Admin: 07/11/24 08:28 Dose: 10 mg Documented By: DUEK Magnesium Hydroxide (Milk Of Magnesia 30 Ml Oral.Susp) 30 ml PO DAILY PRN PRN Reason: Constipation Melatonin (Melatonin 3 Mg Tablet) 6 mg PO BEDTIME PRN PRN Reason: Insomnia Prazosin HCl (Prazosin Hcl 1 Mg Capsule) 3 mg PO BEDTIME [facility]; Protocol Last Admin: 07/10/24 21:17 Dose: 3 mg Documented By: MELLISSA Quetiapine Fumarate (Quetiapine Fumarate 400 Mg Tablet) 800 mg PO BEDTIME [facility] Last Admin: 07/10/24 21:17 Dose: 800 mg Documented By: MELLISSA Sodium Chloride (0.9 % Sodium Chloride Flush 3 Ml Syringe) 3 ml IVFLUSH QSHIFT [facility] Last Admin: 07/11/24 08:27 Dose: Not Given Documented By: UDKE Non-Admin Reason: IV Running Vortioxetine (Vortioxetine Hydrobromide 10 Mg Tablet) 10 mg PO DAILY@1600 [facility] Labs 07/11/24 05:42 07/11/24 05:42 Labs: Laboratory Results - last 24 hr 07/10/24 07/10/24 07/11/24 16:06 19:37 05:42 MCV 95.4 MCH 30.8 MCHC 32.3 RDW 13.7 Plt Count 166 MPV 9.8 Absolute Nucleated RBC 0.000 Nucleated RBC % (auto) 0.0 Anion Gap 15 Estim Creat Clear Calc 34.3 Estimated GFR 20 POC Glucose 121 H 104 Random Glucose 97 Calcium 8.7 Urine Color Urine Appearance Urine pH Ur Specific [place] Urine Protein Urine Glucose (UA) Urine Ketones Urine Blood Urine Nitrite Ur Leukocyte Esterase 07/11/24 07/11/24 07:19 07:46 MCV MCH MCHC RDW Plt Count MPV Absolute Nucleated RBC Nucleated RBC % (auto) Anion Gap Estim Creat Clear Calc Estimated GFR POC Glucose 104 Random Glucose Calcium Urine Color Yellow Urine Appearance Clear Urine pH 5.5 Ur Specific [place] 1.015 Urine Protein Negative Urine Glucose (UA) Negative Urine Ketones Negative Urine Blood Negative Urine Nitrite Negative Ur Leukocyte Esterase Negative Assessment and Plan (1) Chronic post-traumatic stress disorder (PTSD): Status: Acute Plan 59F PMH DM hld, obesity, hypothyroid, ptsd, bipolar, history of suicide attempt being transferred from inpatient psychiatry for acute kidney injury Acute kidney injury likely due to dehydration from diarrhea no obstruction on CT imrpoving with ivf, will continue today, follow up nephro, repeat labs Check stool studies if diarrhea recures Diabetes Hold metformin for RAJESH, insulin sliding scale acute lactic acidosis due to metformin, not sepsis Bipolar with recent suicide attempt Continue mood stabilizers, care team eval prior to discharge no need for sitter at this time Hypothyroid Continue levothyroxine Obesity Weight loss recommended DVT prophylaxis with heparin subQ Full code reason for continued hospitalization:ivf for rajesh Quality Stroke Does the patient have a stroke diagnosis?: No VTE Prior VTE?: No VTE Risk Level:: Medical - moderate - high VTE Device Contraindication: Treatment Not Indicated VTE Drug Contraindication: N/A - Med Ordered
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
[2024-07-11 11:19] LABS: Glucose, Whole Blood 116 mg/dL (60-115)
[2024-07-11 15:17] VITALS: BP 107/64; PULSE 85; RESP 18; TEMP 36.3; O2SAT 97
[2024-07-11] MEDS: Vortioxetine Hydrobromide 10 MG TABLET PO (15:27)
[2024-07-11 15:35] LABS: Glucose, Whole Blood 111 mg/dL (60-115)
--- NOTE | 2024-07-11 16:12 | MHC.CM.PN ---
PT NOT MEDICALLY CLEARED, STILL RECEIVING IVF FOR RAJESH DCP EXPECTED TO BE IPLOC PENDING CARE TEAM ASSESSMENT
[2024-07-11] MEDS: LORazepam 0.5 MG TABLET PO (17:52)
[2024-07-11 20:00] VITALS: BP 130/66; PULSE 82; RESP 18; TEMP 36.9; O2SAT 94
[2024-07-11 20:21] LABS: Glucose, Whole Blood 126 mg/dL (60-115)
[2024-07-11] MEDS: QUEtiapine Fumarate 400 MG TABLET 800 MG PO (20:44)
[2024-07-11 20:46] VITALS: BP 130/66
[2024-07-11] MEDS: Atorvastatin Calcium 40 MG TABLET PO (20:46)
[2024-07-11] MEDS: Prazosin HCL 1 MG CAPSULE 3 MG PO (20:46)
--- NOTE | 2024-07-11 21:30 | PC.NURSE ---
pt is requesting home medication Dr. Rosa Armstrong made aware, new orders placed per MAR
[2024-07-11] MEDS: Zolpidem Tartrate 5 MG TABLET 10 MG PO (23:23)
[2024-07-11] MEDS: 0.9 % Sodium Chloride Flush 3 ML SYRINGE IVFLUSH (23:23)
[2024-07-12 03:48] VITALS: BP 137/68; PULSE 91; RESP 18; TEMP 37.2; O2SAT 95
[2024-07-12] MEDS: Levothyroxine Sodium 175 MCG TABLET PO (05:21)
[2024-07-12] MEDS: Heparin Sodium,Porcine 5,000 UNIT/ML VIAL 5000 UNIT SUBCUT (05:21)
[2024-07-12 06:31] LABS: Hematocrit 30.9 % (37.0-47.0); Hemoglobin 10.1 g/dl (12.0-16.0); Mean Corpuscular HGB Conc 32.7 g/dl (31.0-35.0); Mean Corpuscular Hemoglobin 31.1 pg (27.0-33.0); Mean Corpuscular Volume 95.1 fL (80.0-98.0); Red Blood Count 3.25 X10*6/uL (4.20-5.50); Red Cell Distribution Width 13.2 % (11.0-16.0); White Blood Count 5.1 X10*3/uL (4.8-10.8)
[2024-07-12 06:35] LABS: Anion Gap 13 (12-20); Blood Urea Nitrogen 33 mg/dL (9-16); Calcium 8.8 mg/dL (8.4-10.2); Carbon Dioxide 25 mmol/L (22-29); Chloride 109 mmol/L (96-108); Creatinine Clr Calc Pharmacy 58.2; Estimated Glomerular Filt Rate 36; Glucose Random 107 mg/dL (60-115); Potassium 4.6 mmol/L (3.3-5.1); Sodium 142 mmol/L (135-145)
[2024-07-12 07:18] VITALS: BP 125/64; PULSE 84; RESP 16; TEMP 36.8; O2SAT 98
[2024-07-12 07:27] LABS: Glucose, Whole Blood 107 mg/dL (60-115)
[2024-07-12 07:34] LABS: Mean Platelet Volume 9.8 fL (9.4-12.3); Platelet Count 110 X10*3/uL (160-400)
[2024-07-12] MEDS: Loratadine 10 MG TABLET PO (07:40)
[2024-07-12] MEDS: amantadine HCL 100 MG CAPSULE PO (07:40)
[2024-07-12] MEDS: Gabapentin 100 MG CAPSULE PO (07:40)
[2024-07-12] MEDS: Acetaminophen 325 MG TABLET 650 MG PO (07:42)
[2024-07-12] MEDS: Aspirin Enteric Coated 81 MG TABLET.DR PO (07:42)
--- NOTE | 2024-07-12 09:02 | P.PNIM_ITS ---
Subjective Subjective Date of Service: 07/12/24 Interval History: feeling well, diarrhea resolved Physical Exam 2 Vital Signs: Vital Signs: Last Vital Signs Temp 98.3 F 07/12/24 07:18 Pulse 84 07/12/24 07:18 Resp 16 07/12/24 07:18 BP 125/64 07/12/24 07:18 Pulse Ox 98 07/12/24 07:18 O2 Del Method Room Air 07/12/24 07:18 BMI result Body Mass Index 49.3 Awake. Comfortable. Neck is supple. Mucosa dry Lungs bilateral scattered rhonchi. Heart S1-S2 heard no gallop. Abdomen soft. Extremities no edema. No involuntary movements. No myoclonus. Objective Data Active Medications Acetaminophen (Acetaminophen 325 Mg Tablet) 650 mg PO Q6H PRN PRN Reason: Pain, Mild 1-3,fever,headache Last Admin: 07/12/24 07:42 Dose: 650 mg Documented By: DUKE Amantadine HCl (Amantadine Hcl 100 Mg Capsule) 100 mg PO TID [facility] Last Admin: 07/12/24 07:40 Dose: 100 mg Documented By: DUKE Aspirin (Aspirin Enteric Coated 81 Mg Tablet.Dr) 81 mg PO DAILY [facility] Last Admin: 07/12/24 07:42 Dose: 81 mg Documented By: DUKE Atorvastatin Calcium (Atorvastatin Calcium 40 Mg Tablet) 40 mg PO BEDTIME [facility] Last Admin: 07/11/24 20:46 Dose: 40 mg Documented By: ALEJANDRO Calcium Carbonate (Calcium Carbonate 750 Mg Tab.Chew) 750 mg PO Q4H PRN PRN Reason: Heartburn Dextrose (Dextrose 50 % 25 Gm/50 Ml Syringe) 25 gm IVPUSH Q15M PRN; Protocol PRN Reason: per Hypoglycemia Standing Ord. Gabapentin (Gabapentin 100 Mg Capsule) 100 mg PO TID [facility] Last Admin: 07/12/24 07:40 Dose: 100 mg Documented By: DUKE Glucose (Glucose Gel 15 Gm Gel..Gram.) 15 gm PO Q15M PRN; Protocol PRN Reason: per Hypoglycemia Standing Ord. Heparin Sodium (Porcine) (Heparin Sodium,Porcine 5,000 Unit/Ml Vial) 5,000 unit SUBCUT Q8H [facility] Last Admin: 07/12/24 05:21 Dose: 5,000 unit Documented By: ALEJANDRO Sodium Chloride (Ns) 1,000 mls @ 100 mls/hr IVCONT .Q10H [facility] Last Admin: 07/11/24 23:24 Dose: 100 mls/hr Documented By: ALEJANDRO Insulin Human Lispro (Insulin Lispro 100 Unit/Ml 3 Ml Vial) 0 unit SUBCUT QIDACHS [facility]; Protocol Last Admin: 07/12/24 07:31 Dose: Not Given Documented By: DUKE Non-Admin Reason: No Insulin Coverage Levothyroxine Sodium (Levothyroxine Sodium 175 Mcg Tablet) 175 mcg PO DAILY@0600 [facility] Last Admin: 07/12/24 05:21 Dose: 175 mcg Documented By: ALEJANDRO Loratadine (Loratadine 10 Mg Tablet) 10 mg PO DAILY [facility] Last Admin: 07/12/24 07:40 Dose: 10 mg Documented By: DUKE Lorazepam (Lorazepam 0.5 Mg Tablet) 0.5 mg PO Q8H PRN PRN Reason: Anxiety Last Admin: 07/11/24 17:52 Dose: 0.5 mg Documented By: DUKE Magnesium Hydroxide (Milk Of Magnesia 30 Ml Oral.Susp) 30 ml PO DAILY PRN PRN Reason: Constipation Melatonin (Melatonin 3 Mg Tablet) 6 mg PO BEDTIME PRN PRN Reason: Insomnia Prazosin HCl (Prazosin Hcl 1 Mg Capsule) 3 mg PO BEDTIME [facility]; Protocol Last Admin: 07/11/24 20:46 Dose: 3 mg Documented By: ALEJANDRO Quetiapine Fumarate (Quetiapine Fumarate 400 Mg Tablet) 800 mg PO BEDTIME [facility] Last Admin: 07/11/24 20:44 Dose: 800 mg Documented By: ALEJANDRO Sodium Chloride (0.9 % Sodium Chloride Flush 3 Ml Syringe) 3 ml IVFLUSH QSHIFT [facility] Last Admin: 07/12/24 07:33 Dose: Not Given Documented By: DUKE Non-Admin Reason: IV Running Vortioxetine (Vortioxetine Hydrobromide 10 Mg Tablet) 10 mg PO DAILY@1600 [facility] Last Admin: 07/11/24 15:27 Dose: 10 mg Documented By: DUKE Zolpidem Tartrate (Zolpidem Tartrate 5 Mg Tablet) 10 mg PO BEDTIME [facility] Last Admin: 07/11/24 23:23 Dose: 10 mg Documented By: ALEJANDRO Labs 07/12/24 05:45 07/12/24 05:45 Labs: Laboratory Results - last 24 hr 07/11/24 07/11/24 07/11/24 11:08 15:21 20:15 MCV MCH MCHC RDW Plt Count MPV Absolute Nucleated RBC Nucleated RBC % (auto) Anion Gap Estim Creat Clear Calc Estimated GFR POC Glucose 116 H 111 126 H Random Glucose Calcium 07/12/24 07/12/24 05:45 07:22 MCV 95.1 MCH 31.1 MCHC 32.7 RDW 13.2 Plt Count 110 L D MPV 9.8 Absolute Nucleated RBC 0.000 Nucleated RBC % (auto) 0.0 Anion Gap 13 Estim Creat Clear Calc 58.2 Estimated GFR 36 POC Glucose 107 Random Glucose 107 Calcium 8.8 Assessment and Plan (1) Chronic post-traumatic stress disorder (PTSD): Status: Acute Plan 59F PMH DM hld, obesity, hypothyroid, ptsd, bipolar, history of suicide attempt being transferred from inpatient psychiatry for acute kidney injury Acute kidney injury likely due to dehydration from diarrhea no obstruction on CT resolved Diabetes Held metformin for RAJESH, insulin sliding scale can restart metformin on discharge acute lactic acidosis due to metformin, not sepsis Bipolar with recent suicide attempt Continue mood stabilizers, care team eval prior to discharge no need for sitter at this time, medically cleared for care team eval Hypothyroid Continue levothyroxine Obesity Weight loss recommended DVT prophylaxis with heparin subQ Full code reason for continued hospitalization: care team Quality Stroke Does the patient have a stroke diagnosis?: No VTE Prior VTE?: No VTE Risk Level:: Medical - moderate - high VTE Device Contraindication: Treatment Not Indicated VTE Drug Contraindication: N/A - Med Ordered
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
[2024-07-12] MEDS: LORazepam 0.5 MG TABLET PO (09:56)
[2024-07-12] MEDS: 0.9 % Sodium Chloride 1,000 ML 100 ML IVCONT (09:56)
--- NOTE | 2024-07-12 10:09 | P.PNNP_ITS ---
Subjective Subjective Date of Service: 07/12/24 Interval history: feeling well, diarrhea resolved Physical Exam 2 Vital Signs: Vital Signs: Last Vital Signs Temp 98.3 F 07/12/24 07:18 Pulse 84 07/12/24 07:18 Resp 16 07/12/24 07:18 BP 125/64 07/12/24 07:18 Pulse Ox 98 07/12/24 07:18 O2 Del Method Room Air 07/12/24 07:18 BMI result Body Mass Index 49.3 Comfortable Neck supple no JVD. Lungs entry equal no rales. Heart S1-S2 heard no gallop or rub. Abdomen soft nontender. Neuro alert awake oriented. No asterixis. Extremities no edema. Objective Data Labs 07/12/24 05:45 07/12/24 05:45 Labs: Laboratory Results - last 24 hr 07/11/24 07/11/24 07/11/24 11:08 15:21 20:15 WBC RBC Hgb Hct MCV MCH MCHC RDW Plt Count MPV Absolute Nucleated RBC Nucleated RBC % (auto) Sodium Potassium Chloride Carbon Dioxide Anion Gap BUN Creatinine Estim Creat Clear Calc Estimated GFR POC Glucose 116 H 111 126 H Random Glucose Calcium 07/12/24 07/12/24 05:45 07:22 WBC 5.1 RBC 3.25 L Hgb 10.1 L Hct 30.9 L MCV 95.1 MCH 31.1 MCHC 32.7 RDW 13.2 Plt Count 110 L D MPV 9.8 Absolute Nucleated RBC 0.000 Nucleated RBC % (auto) 0.0 Sodium 142 Potassium 4.6 Chloride 109 H Carbon Dioxide 25 Anion Gap 13 BUN 33 H Creatinine 1.48 H Estim Creat Clear Calc 58.2 Estimated GFR 36 POC Glucose 107 Random Glucose 107 Calcium 8.8 Procedures Date of Service Date of Service: 07/12/24 Assessment & Plan Assessment and plan (1) RAJESH (acute kidney injury): Status: Acute Plan 59-year-old man with acute kidney injury most likely due to severe dehydration from diarrhea leading to hypotension and hypoperfusion Urine sediments bland therefore glomerular nephritis interstitial nephritis seem unlikely CT scan was unremarkable and no evidence of obstruction. At present renal function is improving with hydration. Keep intake more than output Expect renal recovery. Time Spent With Patient Time: Total time managing care of this patient today ____ minutes. Progress Note: Quality Stroke Does the patient have a stroke diagnosis?: No
--- NOTE | 2024-07-12 10:55 | MHC.CM.PN ---
Addendum entered by Swathi Daniels 07/12/24 13:58: Patient has discharged to [facility] Original Note: Patient is medically cleared for discharge. A Careteam assessment has been performed. Patient qualifies for [facility]. An inpatient bed search is in progress. A message has been received from Ysabel Alvarez , Anuradha Chapa. Patient gave permission to update Anuradha Chapa. A RE: DP was left for the clinician.
[2024-07-12 11:30] LABS: Glucose, Whole Blood 145 mg/dL (60-115)
== END 2024-07-12 11:52 | disposition other institution (70) | DRG 641 ==
PROVIDERS: Admitting Provider Internal Medicine; Visit Provider Internal Medicine
DX: E86.0 Dehydration (principal); N17.9 Acute kidney failure, unspecified; Z68.42 Body mass index [BMI] 45.0-49.9, adult; E11.40 Type 2 diabetes mellitus with diabetic neuropathy, unspecified; I95.9 Hypotension, unspecified; R19.7 Diarrhea, unspecified; F43.12 Post-traumatic stress disorder, chronic; F31.9 Bipolar disorder, unspecified; E87.21 Acute metabolic acidosis; E66.9 Obesity, unspecified; E03.9 Hypothyroidism, unspecified; Z23 Encounter for immunization; Z91.51 Personal history of suicidal behavior; Z79.82 Long term (current) use of aspirin; Z79.890 Hormone replacement therapy; Z79.899 Other long term (current) drug therapy
CPT/HCPCS: 36415; 74176; 80048; 81003; 82947; 85027; 90656; J1644; S9485

== ENCOUNTER → 2024-07-10 12:04 | Outpatient (BNV) | payer MEDICARE, MEDICAID, SELFPAY | PROVIDERS: Admitting Provider Internal Medicine; Visit Provider Internal Medicine Hypertension Specialist | DX: N17.9 Acute kidney failure, unspecified (principal) | CPT/HCPCS: 99223; 99232 ==

== ENCOUNTER → 2024-07-10 | Outpatient (BNV) | payer MEDICARE, MEDICAID, SELFPAY | PROVIDERS: Admitting Provider Internal Medicine; Visit Provider Internal Medicine | DX: F43.12 Post-traumatic stress disorder, chronic (principal); N17.9 Acute kidney failure, unspecified; E11.9 Type 2 diabetes mellitus without complications | CPT/HCPCS: 99222; 99232; 99239; 99499 ==

== ENCOUNTER 2024-07-12 11:53 | Outpatient (BNV) | payer MEDICARE, MEDICAID, SELFPAY | END 2024-07-17 19:50 | PROVIDERS: Admitting Provider Internal Medicine; Visit Provider Radiology Neuroradiology | DX: K56.41 Fecal impaction (principal) | CPT/HCPCS: 74018 ==

== ENCOUNTER 2024-07-12 11:53 | Inpatient (IN) | payer MEDICARE, MEDICAID, SELFPAY ==
--- NOTE | ~2024-07-12 | XR_ITS ---
CLINICAL HISTORY: PAIN 1 view abdomen Comparison: CT of the abdomen from 07/10 2024 Findings: No small bowel dilatation. Severe stool burden is present, including in the cecum and including distally. Phleboliths are noted in the pelvis. Cholecystectomy surgical clips are redemonstrated. Degenerative changes include the imaged hips portions of the pelvis and spine are obscured. Mild-minimal rib deformities are old. IMPRESSION: 1. No small bowel obstruction. 2. Severe stool burden This document has been electronically signed by: Flaquito Barney MD on 07/17/2024 20:51:57
--- NOTE | 2024-07-12 12:47 | PHA.MEDREC ---
Addendum entered by Duarte Gambino [facility] 07/12/24 13:22: Discharge packets states gabapentin 300mg TID and Ativan 2mg HS prn insomnia, but pt's profile in [id number] states gabapentin 100mg tid and ativan 0.5mg TID prn anxiety, updated to these doses in the med rec.\ Original Note: Pharmacy Consult ? Medication Reconciliation Pharmacy has completed the medication reconciliation. Pt was transferred from ([id number]), utilized discharge packet from 07/12/24.
[2024-07-12 13:10] VITALS: BP 152/85; PULSE 88; RESP 16; O2SAT 96; BMI 50.8
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
--- OUTSIDE RECORDS SUMMARY | 2024-07-12 15:03 | XMS_ITS | Data Portability ---
Author Organization ID - [facility] Address [address] [place] [address] Care Team Providers Care Medication Aid Name Role Phone YUE BRADLEY Primary Care Provider YUE BRADLEY Referring Provider YUE BRADLEY Primary Care Provider Assessment Encounter Date Assessment Date Assessment LastModified by Organization Details LastModified Time 04/15/2021 04/15/2021 # IBS-C at baseline . As of now she is doing well with simple conservative measures alone. Continue the same including high-fiber diet, adequate water intake, regular scheduled physical activity, stress reduction, continued psychiatric care. daily yogurt if need be. *okay not to use linzess (No laxatives in her case will likely lead to severe constipation and hospital admission, like it happened in the past. If any other concerns, she will call me) Natural history, variations in intensity and symptoms, lack of cure were all discussed with patient. # Vomiting-likely multifactorial. Likely from a combination of functional gut symptoms, undertreated constipation, baseline medications. As of now doing well. No symptoms. Gastroparesis in the differential; but Noemy has avoid drug interactions now. Hence am not ordering a 4 hour gastric emptying study. We need to aggressively treat constipation always. Zofran as needed in the interim. a gastric emptying study can be considered in future, only if symptoms are persistent despite aggressively treating her constipation and GERD. But I would like to repeat an endoscopy first and then consider the emptying study. # GERD - as of now, continue PPI therapy; ideally 30-60 minutes prior to supper, given current thyroid supplementation. Patient verbalized understanding. Lifestyle interventions for GERD discussed. Eventually, we we will have to attempt to decrease PPI usage in future, given concern of side effects with detention use, and lack of Coronado's in her case. # hx of Adenomatous colon polyp. 3 adenomas at prior exam 10/2019. needs surveillance exam in 10/2022. had abnormal TI on prior imaging; we will re-eval at future exams. Return to office for follow-up. [email or web address] Not available 04/15/2021 18:01:54 08/05/2021 08/05/2021 # Vomiting-likely multifactorial. Likely from a combination of functional gut symptoms, undertreated constipation, baseline medications. Symptoms returned early 2021. ? Gastropathy or peptic ulcer from NSAIDs or other primary upper GI differentials possible. Needs EGD to rule out. Agreeable to proceed. Given emesis, attempt fiber supplementation with psyllium in nonpowder form to increase tolerance, in hopes of ensuring adequate stool emptying and decreasing emesis. ensure thyroid and diabetes are fully and adequately controlled. Gastroparesis in the differential; but Noemy has avoid drug interactions now. Hence am not ordering a 4 hour gastric emptying study. if EGD negative, I could consider this We need to aggressively treat constipation always. Zofran as needed in the interim. # IBS-C at baseline . As of now she is doing well with simple conservative measures alone. Continue the same including high-fiber diet, adequate water intake, regular scheduled physical activity, stress reduction, continued psychiatric care. daily yogurt if need be. *okay not to use linzess (No laxatives in her case will likely lead to severe constipation and hospital admission, like it happened in the past. If any other concerns, she will call me) Natural history, variations in intensity and symptoms, lack of cure were all discussed with patient. # GERD - as of now, continue PPI therapy; ideally 30-60 minutes prior to supper, given current thyroid supplementation. Patient verbalized understanding. Lifestyle interventions for GERD discussed. Eventually, we we will have to attempt to decrease PPI usage in future, given concern of side effects with joint terminal attack controller use, and lack of Coronado's in her case. # hx of Adenomatous colon polyp. 3 adenomas at prior exam 10/2019. needs surveillance exam in 10/2022. had abnormal TI on prior imaging; we will re-eval at future exams. Return to office for follow-up. [email or web address] Not available 08/05/2021 18:48:10 12/31/2021 12/31/2021 56 yo F with L knee OA. XR obtained today revealed tricompartmental arthritic and degenerative changes for the left knee. I discussed the risks and benefits associated with L TKA. Pt's allergies, medications, and PMHx were reviewed in detail with the pt today. Pt was instructed to hold NSAIDs as of now and hold Metformin afer 8am dose on 01/05/22. Pt understands preop and postop procedure and provided consent today for L TKA. Pretesting completed 12/23/21. F/u for L TKA as scheduled for 01/06/22. Copy of the note to Dr. Bradley. [email or web address] Not available 12/31/2021 13:54:24 07/07/2022 07/07/2022 # Vomiting-likely multifactorial. Likely from a combination of functional gut symptoms, undertreated constipation, baseline medications, after EGD 2021 and clinical presentation so far. Continue to address all these components. Ensure thyroid and diabetes are fully and adequately controlled. *Zofran as needed in the interim. * Gastroparesis in the differential; but Reglan has avoid drug interactions now. Hence am not ordering a 4 hour gastric emptying study. Symptoms recur in future, we could consider that. # IBS-C at baseline . As of now she is doing well with simple conservative measures alone. Natural history, variations in intensity and symptoms, lack of cure were all discussed with patient. * Continue the same including high-fiber diet, adequate water intake, regular scheduled physical activity, stress reduction, continued psychiatric care. daily yogurt if need be. *okay not to use linzess. c/w daily miralax 17 gr HS. (No laxatives in her case will likely lead to severe constipation and hospital admission, like it happened in the past. If any other concerns, she will call me) # GERD - as of now, continue PPI therapy; ideally 30-60 minutes prior to supper, given current thyroid supplementation. Lifestyle interventions for GERD discussed. She could certainly attempt using PPI at the lowest possible dose, given concern of side effects with joint terminal attack controller use, and lack of Coronado's in her case. # hx of Adenomatous colon polyp. 3 adenomas at prior exam 10/2019. needs surveillance exam in 10/2022. had abnormal TI on prior imaging; we will re-eval at future exams Return to office for follow-up prn. * * This visit was completed using hospital phone, due to the restrictions of the COVID-19 pandemic. All issues as noted in this document were discussed and addressed, but no physical exam was performed unless allowed by visual confirmation on video. The patient verbally consented to visit. Location of patient during visit: At home Time spent on phone: __12 minutes Total time spent on the encounter (if applicable): 21 minute s [email or web address] Not available 07/07/2022 17:50:16 11/11/2023 11/11/2023 altere d BM: likely due to all the events around her ankle surgery 07/2023, and the ozempic (likely from late 08/2023) I suspect that her digestive system has significantly slowed down overall leading to all the symptoms including altered BM, more emesis and heartburn. I suggest- to clear out the stool burden, take 2 wk of daily miralax. after that, slow down to every other day, or 3 days/wk I believe that she would benefit from this , while trying to keep the GLP-[address]. If despite above, symptoms persist, then she should consider asking for a change # Vomiting-likely multifactorial. Likely from a combination of functional gut symptoms, undertreated constipation, baseline medications, after EGD 2021 and clinical presentation so far. Continue to address all these components. Ensure thyroid and diabetes are fully and adequately controlled. *Zofran as needed in the interim. * Gastroparesis in the differential; but Regfrancisco has several avoid drug interactions in her case. Hence am not ordering a 4 hour gastric emptying study. If despite addressing above, symptoms persist, we could consider that, being aware that I will not be able to manage the gastroparesis if present and will need tertiary care referral # IBS-C at baseline . She was doing overall well with simple conservative measures alone. She is aware of the natural history, variations in intensity and symptoms, lack of cure. * Continue the same including high-fiber diet, adequate water intake, regular scheduled physical activity, stress reduction, continued psychiatric care. daily yogurt if need be. MiraLAX as stated below. (No laxatives will likely lead to severe constipation and hospital admission, based on prior experience) # GERD - as of now, continue PPI ; ideally 30-60 minutes prior to supper, given current thyroid med. Lifestyle interventions for GERD emphasized again. In future, She could certainly attempt using PPI at the lowest possible dose, given concern of side effects with joint terminal attack controller use, and lack of Coronado's in her case. # hx of Adenomatous colon polyp. 3 adenomas at prior exam 10/2019. 11/2022-colonoscopy -1 small TA. Normal TI. Residual+. Cleared. Repeat 3 yr w BM rx + 2-day prep (no greens for 4 days prior; only clears for breakfast a.m. prior) Return to office for follow-up depending on symptoms and workup results [email or web address] Not available 11/11/2023 20:50:01 Plan of Treatment Reminders Order Date Submit Date Provider Last Modified By Organization Details Last Modified Time Details Appointments None recorded. Lab None recorded. Referral None recorded. Procedures esophagogas troduodenos copy with biopsy (PROC) 2023 024 [facility] (Central Scheduling), [address] [place] [address], [id number], 4 15:35:40 colonoscopy screening (PROC) 2022 023 [facility] (Central Scheduling), [address] [place] [address], [id number], 3 14:56:23 esophagogas troduodenos copy with biopsy (PROC) 2021 022 [facility] (Central Scheduling), [address] [place] [address], [id number], 2 13:33:52 Surgeries None recorded. Imaging None recorded. Medication Orders None recorded. Patient TargetsNo targets recorded. Patient InstructionsNo instructions recorded. Reason for Referral None Reported. Results Created Date Observation Date Name Description Value Unit Range Abnormal Flag Note LastModifiedBy Organization Detail LastModifiedTime 10/09/19 22 10/08/2021 GLUCO SE BETSY FERRARO glucose bedside 131 mg/dL 70-106 high Not Available [facility] Laboratory Department [address] [place], [address] 10/08/2021 12:41:13 10/09/19 22 10/08/2021 GROSS AND MICRO SCOPI C LEVEL 4 results ----- ----- ----- ----- ----- ----- ----- ----- ----- ----- ----- ----- ----- ----- ----- ----- ----- ----- -- RUN DATE: 10/15 massimo maldonado *Live * - LAB PAGE 1 RUN TIME: 1032 Speci placido Crum ry ----- ----- ----- ----- ----- ----- ----- ----- ----- ----- ----- ----- ----- ----- ----- ----- ----- ----- -- MARY ANN NT: Do Torres ACCT: [id number] LOC: ADRIANA SINGH U: [id number] AGE/S X: 56/F ROOM: RE10/[address]: Winston pierre : [birth year] BED: DIS: STATU S: SHANAE SD TLOC: ----- ----- ----- ----- ----- ----- ----- ----- ----- ----- ----- ----- ----- ----- ----- ----- ----- ----- -- SPEC : [id number] RECD: 10/09 732 STATU S: CATHERINEMason JORGITOBrown NUM: [id number] AMILCAR: 10/[address]: Winston pierre ENTER ED: 10/09 733 SP TYPE: Surgi ema OTHR DR: Shawn Franklin ED: Neela Micro L4/4, IHC Copie s To: Shawn Franklin [phone] Winston pierre [address] [facility] [address] [facility]ngel. [address] [facility] [place] [address] [phone] [email or web address] Histo logy: TISSU E ID BLK FRZ PCS BLOCK PROCE DURE LEVEL LEVEL PROCE DURE COM ____ _ ___ ___ ___ GBX A _ ___ ___ ___ GBX B _ ___ ___ ___ GBX C _ ___ ___ ___ GBX D _ ___ ___ ___ MARKE RS: GROSS DESCR IPTIO N REVIE WED PROCE DURES : Gross Micro L4 (732) IHC (732) TISSU ES: A. Gastr ic Biops y - BX DISTA L ESOPH DAIJA R/O BARRE TTS B. Gastr ic Biops y - BX DUODE NUM C. Gastr ic Biops y - BX GASTR IC ANTRU M AND BODY D. Gastr ic Biops y - BX MID AND DISTA L ESOPH DAIJA Final Diagn osis A. DISTA L ESOPH DAIJA, BIOPS Y: - Gastr oesop hagea l mucos al junct ion with chron ic activ e cardi tis. -No intes tinal metap lasia seen. B. DUODE NUM, BIOPS Y: -Duod enal mucos a, no diagn ostic abnor malit ies. C. GASTR IC ANTRU M AND BODY, BIOPS Y: - Chemi ema gastr opath y. - Immun ohist ochem ical stain for Helic obact er is negat gabino. D. MID AND DISTA L ESOPH DAIJA, BIOPS Y: - Squam ous mucos a, no diagn ostic abnor malit ies. CHANELLE LEMON ON NEXT PAGE ----- ----- ----- ----- ----- ----- ----- ----- ----- ----- ----- ----- ----- ----- ----- ----- ----- ----- -- RUN DATE: 10/15 Griselda maldonado *Live * - LAB PAGE 2 RUN TIME: 1032 Speci placido Inqui ry ----- ----- ----- ----- ----- ----- ----- ----- ----- ----- ----- ----- ----- ----- ----- ----- ----- ----- -- SPEC: [id number] PATIE NT: Do Torres [id number] (Cont inued ) ----- ----- ----- ----- ----- ----- ----- ----- ----- ----- ----- ----- ----- ----- ----- ----- ----- ----- -- Final Diagn osis (Cont inued ) Comme nt: Immun ohist ochem ical stain s are perfo rmed at [facility] ([address], [place] [address] ) and inter prete d, with accep table contr ols, at [facility]. Gross Descr iptio n A. Recei daniele in alphonse iglesias, label Do Tim, 03/28 and biop sy dista l esoph daiaj r/o [place] tt's . It consi sts of three fragm ents of soft, pink/ pale savage tissu e in aggre gate measu ring 5 x 4 x 2 mm. Filte red and all proce ssed, casse tte A. B. Recei daniele in lilia campbell ed, Jenni fer A., 03/28 and duod enum biops y . It consi sts of two fragm ents of soft, savage tissu e in aggre gate measu ring 3 x 2 x 2 mm. Filte red and all proce ssed, casse tte B. C. Recei daniele in lilia campbell ed, Jenni fer A., 03/28 and jaxson cosme antru m and body biops y . It consi sts of multi ple fragm ents of soft, savage tissu e in aggre gate measu ring 5 x 5 x 2 mm. Filte red and all proce ssed, casse tte C. D. Recei daniele in lilia campbell ed, Jenni fer A., 03/28 and mid and dista l esoph daija . It consi sts of multi ple fragm ents of soft, pink/ pale savage tissu e in aggre gate measu ring 5 x 3 x 2 mm. Filte red and all proce ssedliliam (AM) 2 Post- Opera tive Diagn osis Gastr itis Pre-O perat gabino Diagn osis GERD, abdom inal pain, nause a and vomit ing ----- ----- ----- ----- ----- ----- ----- ----- ----- ----- ----- ----- ----- ----- ----- ----- ----- ----- -- Fanny d (sign ature on file) _ Leonor Farrell MD 10/11 1328 (sign ature on file) _ Leonor Farrell MD 10/11 1032 ----- ----- ----- ----- ----- ----- ----- ----- ----- ----- ----- ----- ----- ----- ----- ----- ----- ----- -- END OF REPOR T Not Available [facility] Laboratory Department [address] [place] [address], [id number] 10/15/2021 10:32:48 01/01/2012/31/2021 COMPL ETE BLOOD COUNT AUTO DIFF white blood count 8.25 K/uL 3.5-11 .0 normal Not Available [facility] Department [address] [place] [address], [id number] 12/31/2021 12:55:24 01/01/2012/31/2021 COMPL ETE BLOOD COUNT AUTO DIFF red blood count 4.38 M/uL 3.60-4 .80 normal Not Available [facility] Department [address] [place] [address], [id number] 12/31/2021 12:55:24 01/01/20 22 12/31/2021 COMPL ETE BLOOD COUNT AUTO DIFF hemoglobin 12.8 g/dL 12.0-1 6.0 normal Not Available [facility] Department [address] [place] [address], [id number] 12/31/2021 12:55:24 01/01/20 22 12/31/2021 COMPL ETE BLOOD COUNT AUTO DIFF hematocrit 41.1 % 36.0-4 8.0 normal Not Available [facility] Department [address] [place] [address], [id number] 12/31/2021 12:55:24 01/01/20 22 12/31/2021 COMPL ETE BLOOD COUNT AUTO DIFF mean corpuscular volume 93.8 fL 79.0-9 8.0 normal Not Available [facility] Department [address] [place] [address], [id number] 12/31/2021 12:55:24 01/01/20 22 12/31/2021 COMPL ETE BLOOD COUNT AUTO DIFF mean corpuscular hemoglobin 29.2 pg 25.4-3 4.6 normal Not Available [facility] Department [address] [place] [address], [id number] 12/31/2021 12:55:24 01/01/20 22 12/31/2021 COMPL ETE BLOOD COUNT AUTO DIFF mean corpuscular HGB conc 31.1 g/dL 30.0-3 6.0 normal Not Available [facility] Department [address] [place] [address], [id number] 12/31/2021 12:55:24 01/01/20 22 12/31/2021 COMPL ETE BLOOD COUNT AUTO DIFF red cell distribution width 14.3 % 11.5-1 4.5 normal Not Available [facility] Department [address] [place] [address], [id number] 12/31/2021 12:55:24 01/01/20 22 12/31/2021 COMPL ETE BLOOD COUNT AUTO DIFF platelet count 244 K/uL 150-40 0 normal Not Available [facility] Department [address] [place] [address], [address] 12/31/2021 12:55:24 01/01/20 22 12/31/2021 COMPL ETE BLOOD COUNT AUTO DIFF neutrophils percent auto 67.5 % 35.0-6 6.0 high Not Available [facility] Department [address] [place] [address], [id number] 12/31/2021 12:55:24 01/01/20 22 12/31/2021 COMPL ETE BLOOD COUNT AUTO DIFF imm gran pct auto 0.2 % 0.0-0. 6 normal Not Available [facility] Department [address] [place] [address], [id number] 12/31/2021 12:55:24 01/01/20 22 12/31/2021 COMPL ETE BLOOD COUNT AUTO DIFF lymphocytes percent auto 18.7 % 25.0-4 5.0 low Not Available [facility] Department [address] [place] [address], [id number] 12/31/2021 12:55:24 01/01/20 22 12/31/2021 COMPL ETE BLOOD COUNT AUTO DIFF monocytes percent auto 10.2 % 0.0-13 .0 normal Not Available [facility] Department [address] [place] [address], [address] 12/31/2021 12:55:24 01/01/20 22 12/31/2021 COMPL ETE BLOOD COUNT AUTO DIFF eosinophils percent auto 2.9 % 0.0-8. 0 normal Not Available [facility] Department [address] [place] [address], [id number] 12/31/2021 12:55:24 01/01/20 22 12/31/2021 COMPL ETE BLOOD COUNT AUTO DIFF basophils percent auto 0.5 % 0.0-1. 0 normal Not Available [facility] Department [address] [place] [address], [id number] 12/31/2021 12:55:24 01/01/20 22 12/31/2021 COMPL ETE BLOOD COUNT AUTO DIFF neutrophils absolute auto 5.57 K/uL 1.5-7. 5 normal Cauti on: Inter preta tion of ANC resul ts witho ut inclu wili of the WBC diffe renti al resul ts may lead to concepción eous diagn osis; for examp le, kae ng myelo proli ferat gabino or lymph oprol ifera tive disor ders. Not Available [facility] Department [address] [place] [address], [id number] 12/31/2021 12:55:24 01/01/20 22 12/31/2021 COMPL ETE BLOOD COUNT AUTO DIFF imm gran abs auto 0.02 K/uL 0.00-0 .09 normal Not Available [facility] Department [address] [place], [address] 12/31/2021 12:55:24 01/01/20 22 12/31/2021 COMPL ETE BLOOD COUNT AUTO DIFF lymphocytes absolute auto 1.54 K/uL 0.8-4. 8 normal Not Available [facility] Department [address] [place] [address], [id number] 12/31/2021 12:55:24 01/01/20 22 12/31/2021 COMPL ETE BLOOD COUNT AUTO DIFF monocytes absolute auto 0.84 K/uL 0.4-1. 3 normal Not Available [facility] Department [address] [place] [address], [id number] 12/31/2021 12:55:24 01/01/20 22 12/31/2021 COMPL ETE BLOOD COUNT AUTO DIFF eosinophils absolute auto 0.24 K/uL 0.0-0. 8 normal Not Available [facility] Department [address] [place] [address], [address] 12/31/2021 12:55:24 01/01/20 22 12/31/2021 COMPL ETE BLOOD COUNT AUTO DIFF basophils absolute auto 0.04 K/uL 0.0-0. 6 normal Not Available [facility] Department [address] [place] [address], [id number] 12/31/2021 12:55:24 01/01/20 22 12/31/2021 BASIC METAB OLIC PANEL sodium 141 mmol/ L 136-14 5 normal Not Available [facility] Department [address] [place] [address], [address] 12/31/2021 13:20:17 01/01/20 22 12/31/2021 BASIC METAB OLIC PANEL potassium 4.8 mmol/ L 3.5-5. 1 normal Not Available [facility] Department [address] [place] [address], [address] 12/31/2021 13:20:17 01/01/20 22 12/31/2021 BASIC METAB OLIC PANEL chloride 101 mmol/ L 98-107 normal Not Available [facility] Department [address] [place] [address], [address] 12/31/2021 13:20:17 01/01/20 22 12/31/2021 BASIC METAB OLIC PANEL carbon dioxide 26.8 mmol/ L 22-29 normal Not Available [facility] Department [address] [place], [address] 12/31/2021 13:20:17 01/01/2012/31/2021 BASIC METAB OLIC PANEL anion gap 18 mmol/ L 10-20 normal Not Available [facility] Department [address] [place], [address] 12/31/2021 13:20:17 01/01/2012/31/2021 BASIC METAB OLIC PANEL blood urea nitrogen 11 mg/dL 6-20 normal Not Available [facility] Laboratory Department [address] [place], [address] 12/31/2021 13:20:17 01/01/2012/31/2021 BASIC METAB OLIC PANEL creatinine 1.22 mg/dL 0.50-0 .90 high Not Available [facility] Department [address] [place] [address], [address] 12/31/2021 13:20:17 01/01/2012/31/2021 BASIC METAB OLIC PANEL glomerular filtration rate 50 GFR Value : ml/mi n/1.7 3 squar e meter s * If patie nt is Afric an-Am eze n, multi ply resul t by 1.159 Chron ic Kidne y Disea se is defin ed as less than 60 ml/mi n/1.7 3 squar e meter s. Kidne y failu re is less than 15 ml/mi n/1.7 3 squar e meter s Test is not perfo rmed on patie nts under the age of 18 Not Available [facility] Department [address] [place], [address] 12/31/2021 13:20:17 01/01/2012/31/2021 BASIC METAB OLIC PANEL glucose 139 mg/dL 70-106 high Not Available [facility] Department [address] [place], [address] 12/31/2021 13:20:17 01/01/2012/31/2021 BASIC METAB OLIC PANEL calcium 9.7 mg/dL 8.6-10 .3 normal Not Available [facility] Department [address] [place], [address] 12/31/2021 13:20:17 01/01/20 22 12/31/2021 UA AND RFLX MICRO SCOPI C color urine Yellow yellow Not Available [facility] Laboratory Department [address] [place], [address] 12/31/2021 14:51:26 01/01/20 22 12/31/2021 UA AND RFLX MICRO SCOPI C appearance urine Slight ly cloudy clear Not Available [facility] Department [address] [place], [address] 12/31/2021 14:51:26 01/01/20 22 12/31/2021 UA AND RFLX MICRO SCOPI C specific gravity urine >=1.03 0 1.001- 1.035 abnormal Not Available [facility] Department [address] [place], [address] 12/31/2021 14:51:26 01/01/20 22 12/31/2021 UA AND RFLX MICRO SCOPI C glucose urine UA Negati ve negati ve Not Available [facility] Department [address] [place], [address] 12/31/2021 14:51:26 01/01/20 22 12/31/2021 UA AND RFLX MICRO SCOPI C bilirubin urine Negati ve negati ve Not Available [facility] Department [address] [place], [address] 12/31/2021 14:51:26 01/01/20 22 12/31/2021 UA AND RFLX MICRO SCOPI C ketones urine Trace negati ve abnormal Not Available [facility] Department [address] [place], [address] 12/31/2021 14:51:26 01/01/20 22 12/31/2021 UA AND RFLX MICRO SCOPI C urine hemoglobin Negati ve negati ve Not Available [facility] Department [address] [place], [address] 12/31/2021 14:51:26 01/01/20 22 12/31/2021 UA AND RFLX MICRO SCOPI C pH urine 6.0 5.0-8. 0 Not Available [facility] Department [address] [place] [address], [address] 12/31/2021 14:51:26 01/01/20 22 12/31/2021 UA AND RFLX MICRO SCOPI C protein urine Trace (low) mg/dL negati ve Not Available [facility] Department [address] [place], [address] 12/31/2021 14:51:26 01/01/20 22 12/31/2021 UA AND RFLX MICRO SCOPI C urobilinogen urine 0.2 mg/dL 0.2-1. 0 Not Available [facility] Department [address] [place] [address], [address] 12/31/2021 14:51:26 01/01/20 22 12/31/2021 UA AND RFLX MICRO SCOPI C nitrite urine Negati ve negati ve Not Available [facility] Department [address] [place] [address], [address] 12/31/2021 14:51:26 01/01/2012/31/2021 UA AND RFLX MICRO SCOPI C leukocyte esterase urine Negati ve negati ve Not Available [facility] Department [address] [place] [address], [address] 12/31/2021 14:51:26 01/01/2012/31/2021 HEMOG LOBIN A1C hemoglobin A1C % 6.3 % 4.0-5. 7 high % of the total HgB Inter preta tion ----- ----- ----- --- ----- ----- ----- - <5.7 Consi stent with the absen ce of diabe anurag 5.7-6 .4 Consi stent with incre ased risk for diabe anurag (pred iabet es) > or = to 6.5 Consi stent with Diabe anurag Not Available [facility] Department [address] [place] [address], [address] 12/31/2021 14:54:31 01/06/20 22 01/05/2022 TYPE AND SCREE N blood type A Positi ve Not Available [facility] Department [address] [place] [address], [address] 01/05/2022 11:52:36 01/06/20 22 01/05/2022 TYPE AND SCREE N antibody screen NEGATI VE Not Available [facility] Department [address] [place] [address], [address] 01/05/2022 11:52:36 01/06/20 22 01/05/2022 PROTH ROMBI N TIME INR prothrombin time 14.0 sec 12.1-1 4.9 normal Not Available [facility] Department [address] [place], [address] 01/05/2022 11:55:39 01/06/20 22 01/05/2022 PROTH ROMBI N TIME INR INR 1.01 Refer ence Range : No Presc ribed Anti- coagu lant: 0.9 - 1.1 Presc ribed Anti- coagu lant: 2.0 - 3.0 Heart Valve Repla cemen t and Presc ribed Anti- coagu lant: 2.5 - 3.5 Not Available [facility] Department [address] [place], [address] 01/05/2022 11:55:39 01/07/20 22 01/06/2022 COVID -19 ID NOW (ABBO TT) covid-19 test Negati ve negati ve ID NOW COVID -19 assay is a rapid molec ular in vitro diagn ostic test utili zing an isoth ermal nucle ic acid ampli ficat ion techn ology inten ded for the quali tativ e detec tion of nucle ic acid from SARS- CoV-2 viral RNA in direc t nasal , nasop haryn geal or throa t swabs elute d in viral trans port media from indiv idual s who are suspe cted of COVID -19. Resul ts are for the ident ifica tion of SARS- CoV-2 RNA which is gener ally detec table in respi rator y sampl es vargasin g the acute phase of infec tion. Posit gabino resul ts are indic ative of the prese nce of SARS- CoV-2 RNA; clini ema corre latio n with patie nt histo ry and other diagn ostic infor matio n is neces vesna to deter mine patie nt infec tion statu s. Posit gabino resul ts do not rule out bacte rial infec tion or co-in fecti on with other virus es. Negat gabino resul ts do not precl ude SARS- CoV-2 infec tion and shoul d not be used as the sole basis for patie nt manag ement decis ions. Negat gabino resul ts must be combi duyen with clini ema rj otto, mary ann ochoa histo ry, and melia burger. The ID NOW COVID -19 test is only for use under the Food and Drug Admin istra tion' s Emerg ency Use Autho rizat ion. Not Available [facility] Department [address] [place] [address], [address] 01/06/2022 13:10:19 01/07/20 22 01/06/2022 GROSS AND MICRO SCOPI C LEVEL 4 results ----- ----- ----- ----- ----- ----- ----- ----- ----- ----- ----- ----- ----- ----- ----- ----- ----- ----- -- RUN DATE: 01/10 Griselda maldonado *Live * - LAB PAGE 1 RUN TIME: 1450 Speci men Inqui ry ----- ----- ----- ----- ----- ----- ----- ----- ----- ----- ----- ----- ----- ----- ----- ----- ----- ----- -- MARY ANN NT: Do Torres ACCT: [id number] LOC: HE.OR U: [id number] AGE/S X: 56/F ROOM: RE01/[address]: Todd Chow i : [birth year] BED: DIS: STATU S: DEP [facility] TLOC: ----- ----- ----- ----- ----- ----- ----- ----- ----- ----- ----- ----- ----- ----- ----- ----- ----- ----- -- SPEC : [id number] RECD: 01/07-0 659 STATU S: KALYN DAVIS NUM: [id number] AMILCAR: 01/06-[address]: Todd Chow i ENTER ED: 01/07-0 700 SP TYPE: Surgi ema OTHR DR: Shawn Franklin ORDER ED: Gross Micro L4, Decal Copie s To: Todd Chow i [address] [facility] [place] [address] [phone] [email or web address] Shawn Bruno [phone] Histo logy: TISSU E ID BLK FRZ PCS BLOCK PROCE DURE LEVEL LEVEL PROCE DURE COM ____ _ ___ ___ ___ Total knee _ ___ ___ ___ PROCE DURES : Gross Micro L4 (12/11) Decal (12/11) TISSU ES: Total knee - PRODU CTS OF LEFT TOTAL KNEE ARTHR OPLAS TY Final Diagn osis PRODU CTS OF LEFT TOTAL KNEE ARTHR OPLAS TY: Degen erati ve joint disea se. Gross Descr iptio n Recei daniele in forma harris label ed Do garsia, 03/28 and prod ucts of left total knee arthr oplas ty . It consi sts of multi ple fragm ents bone with the artic ular surfa doreen measu ring 7 x 7 x 5 cm. in aggre gate. Also found in conta iner of multi ple fragm ents of soft, tissu e measu ring 2 x 1 x 1 cm. The artic ular surfa ce shows signs of carti michele loss encom passi ng at least 80% of the surfa ce. Lyndsey strong ed in one casse tte after decal cific ation . (VZ) 01/07 Post- Opera tive Diagn osis Same CHANELLE ION ON NEXT PAGE ----- ----- ----- ----- ----- ----- ----- ----- ----- ----- ----- ----- ----- ----- ----- ----- ----- ----- -- RUN DATE: 01/10 Griselda maldonado *Live * - LAB PAGE 2 RUN TIME: 1450 Speci placido Inqui ry ----- ----- ----- ----- ----- ----- ----- ----- ----- ----- ----- ----- ----- ----- ----- ----- ----- ----- -- SPEC: [id number] PATIE NT: Do Torres [id number] (Cont inued ) ----- ----- ----- ----- ----- ----- ----- ----- ----- ----- ----- ----- ----- ----- ----- ----- ----- ----- -- Pre-O perat gabino Diagn osis Left knee advan my arthr itis ----- ----- ----- ----- ----- ----- ----- ----- ----- ----- ----- ----- ----- ----- ----- ----- ----- ----- -- Fanny d (sign ature on file) _ Leonor Farrell MD 01/10 1449 ----- ----- ----- ----- ----- ----- ----- ----- ----- ----- ----- ----- ----- ----- ----- ----- ----- ----- -- END OF REPOR T Not Available [facility] Department [address] [place] [address], [address] 01/10/2022 14:50:36 01/08/2001/07/2022 PROTH ROMBI N TIME INR prothrombin time 14.6 sec 12.1-1 4.9 normal Not Available [facility] Department [address] [place] [address], [address] 01/07/2022 06:55:01 01/08/2001/07/2022 PROTH ROMBI N TIME INR INR 1.06 Refer ence Range : No Presc ribed Anti- coagu lant: 0.9 - 1.1 Presc ribed Anti- coagu lant: 2.0 - 3.0 Heart Valve Repla cemen t and Presc ribed Anti- coagu lant: 2.5 - 3.5 Not Available [facility] Department [address] [place] [address], [address] 01/07/2022 06:55:01 01/08/2001/07/2022 HEMOG LOBIN AND HEMAT OCRIT hemoglobin 10.7 g/dL 12.0-1 6.0 low Not Available [facility] Department [address] [place] [address], [address] 01/07/2022 06:57:36 01/08/20 22 01/07/2022 HEMOG LOBIN AND HEMAT OCRIT hematocrit 34.7 % 36.0-4 8.0 low Not Available [facility] Department [address] [place], [address] 01/07/2022 06:57:36 01/09/20 22 01/08/2022 HEMOG LOBIN AND HEMAT OCRIT hemoglobin 10.2 g/dL 12.0-1 6.0 low Not Available [facility] Department [address] [place] [address], [address] 01/08/2022 07:20:26 01/09/2001/08/2022 HEMOG LOBIN AND HEMAT OCRIT hematocrit 33.0 % 36.0-4 8.0 low Not Available [facility] Department [address] [place] [address], [address] 01/08/2022 07:20:26 01/09/20 22 01/08/2022 PROTH ROMBI N TIME INR prothrombin time 22.9 sec 12.1-1 4.9 high Not Available [facility] Department [address] [place] [address], [address] 01/08/2022 07:22:05 01/09/20 22 01/08/2022 PROTH ROMBI N TIME INR INR 1.91 Refer ence Range : No Presc ribed Anti- coagu lant: 0.9 - 1.1 Presc ribed Anti- coagu lant: 2.0 - 3.0 Heart Valve Repla cemen t and Presc ribed Anti- coagu lant: 2.5 - 3.5 Not Available [facility] Department [address] [place] [address], [address] 01/08/2022 07:22:05 11/26/1911/25/2022 TISHA Price LEVEL 4 results ----- ----- ----- ----- ----- ----- ----- ----- ----- ----- ----- ----- ----- ----- ----- ----- ----- ----- -- RUN DATE: 11/28 Griselda maldonado *Live * - LAB PAGE 1 RUN TIME: 1349 Speci placido Alexisi ry ----- ----- ----- ----- ----- ----- ----- ----- ----- ----- ----- ----- ----- ----- ----- ----- ----- ----- -- PATIE NT: Ketan sun Do chu Ingacio ACCT: [id number] LOC: ADRIANA SINGH U: [id number] AGE/S X: 57/F ROOM: RE11/[address]: Winston pierre : [birth year] BED: DIS: STATU S: DEP [facility] TLOC: ----- ----- ----- ----- ----- ----- ----- ----- ----- ----- ----- ----- ----- ----- ----- ----- ----- ----- -- SPEC : [id number] RECD: 11/26-0 538 STATU S: SOUMason REQ NUM: [id number] AMILCAR: 11/25-[address]: Winston pierre ENTER ED: 11/26-0 539 SP TYPE: Surgi ema OTHR DR: Jane Castellano ORDER ED: Gross Micro L4 Copie s To: Winston pierre [address] [place] [id number] [phone] [email or web address] Castellano [address] [place] [address] [phone] Histo logy: TISSU E ID BLK FRZ PCS BLOCK PROCE DURE LEVEL LEVEL [facility] ____ _ ___ ___ ___ ENDO _ ___ ___ ___ MARKE RS: GROSS DESCR IPTIO N REVIE WED PROCE DURES : Gross Micro L4 (11/08) TISSU ES: Biops y - TRANS VERSE COLON POLYP Final Diagn osis Biops y - TRANS VERSE COLON POLYP : Tubul ar adeno ma Gross Descr iptio n Do Torres, date of 03/28 , trans verse colon polyp . Recei daniele in forma harris are 2 fragm ents of soft savage tissu e in a few savage-b rown veget able fiber fragm ents in aggre gate measu ring 8 x 7 x 3 mm. Speci placido is filte red all proce ssed in 1 casse tte. CHANELLE LEMON ON NEXT PAGE ----- ----- ----- ----- ----- ----- ----- ----- ----- ----- ----- ----- ----- ----- ----- ----- ----- ----- -- RUN DATE: 11/28 Griselda maldonado *Live * - LAB PAGE 2 RUN TIME: 1349 Neetu cummins Inqui ry ----- ----- ----- ----- ----- ----- ----- ----- ----- ----- ----- ----- ----- ----- ----- ----- ----- ----- -- SPEC: [id number] PATIE NT: Do Torres [id number] (Cont inued ) ----- ----- ----- ----- ----- ----- ----- ----- ----- ----- ----- ----- ----- ----- ----- ----- ----- ----- -- ----- ----- ----- ----- ----- ----- ----- ----- ----- ----- ----- ----- ----- ----- ----- ----- ----- ----- -- Fanny d (sign ature on file) _ Leonor Farrell MD 11/28 1349 ----- ----- ----- ----- ----- ----- ----- ----- ----- ----- ----- ----- ----- ----- ----- ----- ----- ----- -- END OF REPOR T Not Available [facility] Department [address] [place] [address], [address] 11/28/2022 13:50:12 11/23/19 24 11/23/2023 TISHA Price LEVEL 4 results ----- ----- ----- ----- ----- ----- ----- ----- ----- ----- ----- ----- ----- ----- ----- ----- ----- ----- -- RUN DATE: 11/26 Griselda maldonado *Live * - LAB PAGE 1 RUN TIME: 5512 Neetu pearson ----- ----- ----- ----- ----- ----- ----- ----- ----- ----- ----- ----- ----- ----- ----- ----- ----- ----- -- PATIE NT: Ketan garsia Do Pierre ACCT: [id number] LOC: DIANAJoselynMARIA DOLORES SINGH U: [id number] AGE/S X: 58/F ROOM: RE11/[address]: Winston pierre MD : 03/28 BED: DIS: STATU S: DEP [facility] TLOC: ----- ----- ----- ----- ----- ----- ----- ----- ----- ----- ----- ----- ----- ----- ----- ----- ----- ----- -- SPEC : [id number] RECD: 11/23-0 717 STATU S: SOUT REQ NUM: [id number] AMILCAR: 11/22-[address]: Winston pierre MD ENTER ED: 11/23-0 718 SP TYPE: Surgi ema OTHR DR: Vero velez MD ORDER ED: Gross Micro L4/3, IHC Copie s To: Winston pierre MD [address] [place] [address] [phone] [email or web address] [place] Vero velez MD Summi t Famil y Pract ice [address] [address] [phone] [email or web address] [place] Histo logy: TISSU E ID BLK FRZ PCS BLOCK PROCE DURE LEVEL LEVEL PROCE DURE COM ____ _ ___ ___ ___ ENDO A _ ___ ___ ___ ENDO B _ ___ ___ ___ ENDO C _ ___ ___ ___ MARKE RS: NEELA DESCR IPTIO N REVIE WED ARMEN DURES : Gross Micro L4 (11/08) IHC (11/08) TISSU ES: A. Biops y - Antru m and body B. Biops y - Duode num C. Biops y - GE junct ion Final Diagn osis A. Biops y - Antru m and body: Chemi ema gastr opath y. Immun ohist ochem ical stain for Helic obact er is negat gabino. B. Biops y - Duode num: Duode nal mucos a, no diagn ostic abnor malit y recog nized . CHANELLE LEMON ON NEXT PAGE ----- ----- ----- ----- ----- ----- ----- ----- ----- ----- ----- ----- ----- ----- ----- ----- ----- ----- -- RUN DATE: 11/26 Griselda maldonado *Live * - LAB PAGE 2 RUN TIME: 1305 Speci placido Alexisi ry ----- ----- ----- ----- ----- ----- ----- ----- ----- ----- ----- ----- ----- ----- ----- ----- ----- ----- -- SPEC: [id number] PATIE NT: Do Torres [id number] (Cont inued ) ----- ----- ----- ----- ----- ----- ----- ----- ----- ----- ----- ----- ----- ----- ----- ----- ----- ----- -- Final Diagn osis (Cont inued ) C. Biops y - GE junct ion: Gastr oesop hagea l mucos al junct ion with chron ic inact gabino cardi tis. Comme nt: Immun ohist ochem ical stain s are perfo rmed at [facility] ([address], [place] [address] ) and inter prete d, with accep table contr ols, at [facility]. Gross Descr iptio n A.Fransico christopher taoFlorence mitchell Ignacio, date of 03/28 , biops y antru m and body. Recei daniele in forma harris are multi ple fragm ents of soft savage tissu e in aggre gate measu ring 10 x 3 x 2 mm. Essma n is filte red all proce ssed in 1 casse tte. PLEAS E PERFO RM HELIC OBACT ER IMMUN OSTAI KAVON B.Fransico burgerFlorence mitchell Ignacio, date of 03/28 , biops y duode num. Recei daniele in forma harris are multi ple fragm ents of soft savage tissu e in aggre gate measu ring 7 x 5 x 2 mm speci men is filte red all proce ssed in 1 casse tte. C.Florence Cardenaser A, date of 03/28 , biops y GE junct ion. Recei daniele in forma harris are 2 fragm ents of soft savage tissu e in aggre gate measu ring 5 x 3 x 2 mm. Neetu cummins is filte red all proce ssed in 1 casse tte. ----- ----- ----- ----- ----- ----- ----- ----- ----- ----- ----- ----- ----- ----- ----- ----- ----- ----- -- Fanny mendoza (sign ature on file) _ Leonor Farrell MD 11/26 1305 ----- ----- ----- ----- ----- ----- ----- ----- ----- ----- ----- ----- ----- ----- ----- ----- ----- ----- -- END OF REPOR T Not Available [facility] Department [address] [place] [address], [address] 11/27/2023 13:05:54 02/29/2002/29/2024 NEELA AND CLARISSE Price LEVEL 4 results ----- ----- ----- ----- ----- ----- ----- ----- ----- ----- ----- ----- ----- ----- ----- ----- ----- ----- -- RUN DATE: 03/04 Griselda maldonado *Live * - LAB PAGE 1 RUN TIME: 828 Neetu placido Inqui ry ----- ----- ----- ----- ----- ----- ----- ----- ----- ----- ----- ----- ----- ----- ----- ----- ----- ----- -- PATIE NT: Ketan sunDo chu Ignacio ACCT: [id number] LOC: ADRIANA SINGH U: [id number] AGE/S X: 58/F ROOM: RE02/[address]: Winston pierre MD : [birth year] BED: DIS: STATU S: SHANAE [facility] TLOC: ----- ----- ----- ----- ----- ----- ----- ----- ----- ----- ----- ----- ----- ----- ----- ----- ----- ----- -- SPEC : [id number] RECD: 02/28 416 STATU S: KALYN REQ NUM: [id number] AMILCAR: 02/[address]: Winston pierre MD ENTER ED: 02/28 417 SP TYPE: Surgi ema OTHR DR: Ok Bradley ORDER ED: Gross Micro L4/3, IHC Copie s To: Ok Bradley [address] [place] [address] [phone] Winston pierre MD [address] [place] [address] [phone] [email or web address] Histo logy: TISSU E ID BLK FRZ PCS BLOCK PROCE DURE LEVEL LEVEL PROCE DURE COM ____ _ ___ ___ ___ ENDO A _ ___ ___ ___ ENDO B _ ___ ___ ___ ENDO C _ ___ ___ ___ MARKE RS: GROSS DESCR IPTIO N REVIE WED PROCE DURES : Gross Micro L4 (02/09) IHC (02/09) TISSU ES: A. Biops y - Gastr ic antru m B. Biops y - GE junct ion C. Biops y - Mid and dista l esoph daija Final Diagn osis A. Biops y - Gastr ic antru m: Gastr ic antra l mucos a with react gabino gastr opath y. No intes tinal metap lasia ident ified . Immun ohist ochem ical stain for Helic obact er is negat gabino. Comme nt: Immun ohist ochem ical stain s are perfo rmed at [facility] [place] on ([address], [place] [address] ) and inter prete d, with accep table contr ols, at [facility]. CHANELLE ION ON NEXT PAGE ----- ----- ----- ----- ----- ----- ----- ----- ----- ----- ----- ----- ----- ----- ----- ----- ----- ----- -- RUN DATE: 03/04 Dianamassimo maldonado *Live * - LAB PAGE 2 RUN TIME: 828 Speci men Inqui ry ----- ----- ----- ----- ----- ----- ----- ----- ----- ----- ----- ----- ----- ----- ----- ----- ----- ----- -- SPEC: [id number] PATIE NT: Do Torres [id number] (Cont inued ) ----- ----- ----- ----- ----- ----- ----- ----- ----- ----- ----- ----- ----- ----- ----- ----- ----- ----- -- Final Diagn osis (Cont inued ) B. Biops y - GE junct ion: Squam ocolu mnar junct ional mucos a (card ia and corpu s-typ e) with mild chron ic infla mmati on. No intes tinal metap lasia ident ified . C. Biops y - Mid and dista l esoph daija: Squam ous mucos a withi n mimi l limit s. Gross Descr iptio n A.[facility] christopher burgerFlorence mitchell Pierre, date of 03/28 , biops y gastr ic antru m, see op repor t. Recei daniele in forma harris are multi ple fragm ents of soft savage-p ink tissu e in aggre gate measu ring 7 x 4 x 2 mm. Speci men is filte red all proce ssed in 1 casse tte. PLEAS E PERFO RM HELIC OBACT ER IMMUN OSTAI KAVON B.Chr Florence francis mitchell Ignacio, date of 03/28 , GE junct ion. Recei daniele in forma harris are multi ple fragm ents of soft savage-p ink tissu e in aggre gate measu ring 5 x 5 x 1 mm. Speci men is filte red all proce ssed in 1 casse tte. C.Chr christopher n,Florence medrano A, date of 03/28 , mides ophag us and dista l esoph daija. Recei daniele in forma harris are multi ple fragm ents of soft cream -red tissu e in aggre gate measu ring 5 x 5 x 1 mm. Speci men is filte red all proce ssed in 1 casse tte. ----- ----- ----- ----- ----- ----- ----- ----- ----- ----- ----- ----- ----- ----- ----- ----- ----- ----- -- Fanny d (sign ature on file) _ Noemy gan MD 03/04 0829 ----- ----- ----- ----- ----- ----- ----- ----- ----- ----- ----- ----- ----- ----- ----- ----- ----- ----- -- END OF REPOR T Not Available [facility] Department [address] [facility] [place], [id number] 03/04/2024 08:29:39 01/01/20 22 12/31/2021 XR, chest , 2 view [facility] [address] [facility]. [place] [address] XRay Report Signed Patien t: David Pearson Ignacio MR#: [id number] : 1964 Acct:H [id number] Age/Se x: 56 / F ADM Date: Loc: HE.OR Attend ing Dr: Raj cuba Physic elie: Raj Garcia Date of Servic e: Proced ure(s) : XR chest 2V Access ion Number (s): [id number] H cc: Shawn Franklin EXAM: XR chest 2V CLINIC AL INDICA TION: preop left TKA ADDITI ONAL PERTIN ENT CLINIC AL INFORM ATION FINDIN GS: PA and latera l compar tanisha with: 2018 Lung volume s: low normal Lungs are clear. The heart, medias tinum, and bony struct ures appear unrema rkable . The visual ized bowel gas patter n below the diaphr agm is unrema rkable . Electr onical ly Signed in [place] cribe By Amber Khan MD, MD 001 XR/XR chest 2V IMPRES WILI: No acute findin gs. Dictat ed By: Amber Khan Signed By: [id number] DD/DT: 1101 TD/TT: 1110 Transc riptio nist: [facility] [place] [email or web address] [address] [place] [address], [id number], 12/31/2021 15:22:34 01/01/20 22 12/31/2021 XR, knee, 4 or more view [facility] [address] [facility] [place] [address] XRay Report Signed Patien t: David Pearson MR#: [id number] : 1964 Acct:H [id number] Age/Se x: 56 / F ADM Date: Loc: HE.MAB L Attend ing Dr: Raj cuba Physic elie: Raj Garcia Date of Servic e: Proced ure(s) : XR knee LT 4V Access ion Number (s): [id number] H cc: Shawn Franklin EXAM: XR knee LT 4V CLINIC AL INDICA TION: left knee pain ADDITI ONAL PERTIN ENT CLINIC AL INFORM ATION FINDIN GS: Left knee findin gs: Compar tanisha: 021 Alignm ent is normal withou t acute fractu re or disloc ation. Degene rative change s: Tricom partme ntal DJD greate st latera l greate r than medial and patell ofemor al simila r to last year Cortic al thicke kavon proxim al fibula r metadi aphysi s is also unchan ged No signif icant joint effusi on Bony minera lizati on is grossl y normal . Electr onical ly Signed in [place] cribe By Amber Khan MD, MD 098 XR/XR knee LT 4V IMPRES WILI: Left knee findin gs: No acute fractu res Tricom partme ntal DJD plus cortic al thicke kavon proxim al fibula r metadi aphysi s are unchan ged Dictat ed By: Amber Khan Signed By: [id number] DD/DT: 1233 TD/TT: 1243 Transc riptio nist: [facility] [place] [facility] [address] [place] [address], [id number], 01/01/2022 08:35:36 01/08/20 22 01/06/2022 XR, knee, 1 or 2 [facility] [address] [facility] [place] [address] XRay Report Signed Patien t: David Pearson MR#: [id number] : 1964 Acct:H [id number] Age/Se x: 56 / F ADM Date: Loc: HE.W2 W208-[address]: Raj Garcia MD Orderi ng Physic elie: Marcell Smith-o Date of Servic e: Proced ure(s) : XR knee LT 2V Access ion Number (s): [id number] H cc: Shawn Franklin EXAM: XR knee LT 2V CLINIC AL INDICA TION: Post Op COMPAR TANISHA: 022 FINDIN GS: Interv al placem ent of left total knee arthro plasty with patell ar resurf acing. Hardwa re intact . Alignm ent appear s near-a natomi c. No peripr osthet ic fractu re. Chroni c healed fractu re deform ity proxim al left fibula . Normal bone minera lizati on. No suspic ious osseou s lesion . Joint effusi on. Soft tissue emphys brett, in keepin g with recent surger y. Surgic al drain overli es suprap atella r recess of the joint. Anteri or midlin e skin staple s. Knee in brace. Electr onical ly Signed in [place] cribe By ROSHAN Burger MD, 100 XR/XR knee LT 2V IMPRES WILI: Baseli ne study status post left total knee arthro plasty . Dictat ed By: Roshan burger Signed By: 0916 DD/DT: 1735 TD/TT: 1746 Transc riptio nist: [email or web address] [address] [place] [address], [place], [id number], 01/07/2022 11:22:36 11/23/19 24 11/23/2023 [facility] [address] [facility] [place] [id number] Endo Report Signed Wanda t: Smooth delgadilloDavid villalbamark Pierre MR#: [id number] : 1964 Acct:H [id number] Age/Se x: 58 / F ADM Date: Loc: HE.END O Attend ing Dr: Winston connell MD Orderi ng Physic elie: Date of Servic e: Proced ure(s) : Access ion Number (s): cc: Josef Irene Endosc opist( s): Winston Quesada MD Assist ant(s) : Ann-Marie Gray RN, Olivia Referr ing Physic elie(s) Josef Mccann MD Medica tion(s ): (See Anesth esiolo gist Report ) Instru ment(s ): EG-760 CT Sn: [id number] Reason (s) For Examin ation: GERD (K21.9 ) Nausea and Vomiti ng (R11.2 ) Epigas tric pain Relati ve to office visit, sympto ms have settle d down somewh at. Less intens e GERD sympto ms and infreq uent emesis . At 1 point, was not able to defeca te and she needed senna to clear that. Has not starte d the MiraLA X yet. Extent of Examin ation: Second part of the duoden um Descri ption of Proced ure: Inform ed consen t was obtain ed with the benefi ts, risks, and altern atives to upper GI endosc opy explai duyen, includ ing the risk of perfor ation, and the patien t agreed to procee d. See anesth esiolo gist report for patien ts ASA Classi ficati on. Patien ts last Upper Endosc opy was 022. No contra indica tions were noted on physic al exam. Anesth esia admini stered by [place] feng. (See Anesth esiolo gist report ) The proced ure was perfor med with the patien t in the left latera l decubi tus positi on. The instru ment was insert ed to the second part of the duoden um. Estima balwinder blood loss for the proced ure was 0 ml. The patien t tolera balwinder the proced ure well. There were no compli cation s. Upon discha rge from the endosc opy area, the patien t will be recove red per establ ished proced ures and protoc ols. Findin gs: Esopha leelee: Mucosa normal . No signs of EOE eviden t. LA grade B esopha gitis in 1 segmen t. Elsewh ere , grade A. Patchy inflam matory change s at GE juncti on. Presum ably peptic in origin . Rule out dyspla magdiel, GE juncti on biopsi es. GE juncti on at 39-40. Patulo us at times. No signif icant hernia . Stomac h: Signif icant erosiv e gastri tis in the antrum . 1 area enough to be called an ulcer. Duoden um: Normal mucosa to the extent of exam, except for patchy erythe ma in certai n portio ns. Biopsi es were done, primar vincent to rule out celiac Endosc opic Diagno ses: (see above descri ption) : GERD (Gastr oesoph ageal reflux diseas e) Unspec ified gastri c ulcer Proced ure(s) : EGD diagno stic EGD with biopsy Therap eutic Proced ure(s) Perfor med: Specim en(s) Obtain ed: - Specim ens: Obtain ed, listed above and docume nted in nursin g record Discha rge Arrang ements : D espite the recurr ent acid medica tion , more promin ent acid reflux and also signif icant stomac h lining irrita tion with 1 ulcer. Contin ue presen t medica tions I sent a new prescr iption for pantop razole , to be taken 30 to 60 minute s prior to breakf ast and supper Avoid pain pills like Aleve, Advil, Motrin , Napros yn etc... , in genera l, if able You will receiv e the biopsy result s in the mail in 4-6 weeks. If not, please call the office at [phone]. once I have the result s, we need to plan for repeat upper scope in 3 months , to ensure the resolu tion of the ulcer and signif icant acid reflux change s. Once that is healed , we could then contin ue the pantop razole prior to supper daily. For now, Please do the MiraLA X, 4 to 5 days a week to regula te the bowel emptyi ng. Please use the Zofran only sparin gly. Contin ue the diabet es medica tions includ ing Ozempi c for now. Recall Proced ures: Commen ts: E-Sign ed by: Winston connell MD at 024 2:42:2 7 PM Winston Quesada MD Dictat ed By: Winston connell MD Signed By: [id number] DD/DT: 1407 TD/TT: 1422 Transc riptio nist: [email or web address] [facility] [address] [place] [address], [id number], 11/25/2023 08:47:26 Result Notes None recorded. Problems Name Problem SNOMED Code Status Onset Date Resolution Date Notes Provider Name and Address Organization Details Recorded Time Superficia l foreign body in lower limb Active 2005 Not Available [facility] 3 03:02:38 Cyst of ovary 30368489 Active Not Available [facility] 3 03:02:38 Right lower quadrant pain 247200303 Active Not Available [facility] 3 03:02:38 Osteoarthr itis of knee 709554630 Active DALI Ramirez [facility] 5 13:37:40 Prolonged QT interval 522676127 Active 2018 Skylar briones [facility] 9 10:34:23 Diabetes mellitus 70385007 Active 2018 Skylar briones [facility] 9 10:35:58 Hypertensi ve disorder 45275546 Active 2018 Skylar briones [facility] 9 10:36:03 Hypothyroi dism 72706938 Active 2018 Skylar briones [facility] 9 10:36:10 Gastroesop hageal reflux disease 142912796 Completed 201804/15/2021 Winston pierre MD [address] [place] [address], [place], [address] , [facility] 1 16:34:38 Bipolar disorder 28716849 Active 2018 Skylar briones [facility] 9 10:37:45 Depressive disorder 17565402 Active 2018 Skylar briones [facility] 9 10:38:15 Asthma 910343040 Active 2018 Skylar briones [facility] 9 10:43:40 Essential hypertensi on 20813242 Active 2018 Skylar Vazquezcomb anselmo [facility] 9 10:43:48 Borderline personalit y disorder 39661808 Active 2018 Skylar briones [facility] 9 10:44:04 Morbid obesity 895795150 Active 2018 Skylar Vazquezcomb anselmo [facility] 9 10:44:12 Chronic pain 39728302 Active 2018 Skylar Diallo anselmo [facility] 9 10:44:30 Gastroesop hageal reflux disease without esophagiti s 702424439 Active 2020 Winston pierre MD [address] [place] [address] [place], [id number] , [facility] 16:34:34 Irritable bowel syndrome characteri zed by constipati on 443110978 Active 2020 Winston pierre MD [address] [place] [address] [place], [id number] , [facility] 16:34:55 History of adenomatou s polyp of colon 660980894 Active 2020 Winston pierre MD [address] [place] [address] [place], [id number] , [facility] 16:35:04 Problem Notes None recorded. Procedures Surgical History Date Name Laterality Status Provider Name and Address Organization Details Recorded Time 02/29/20 24 Egd biopsy single/multiple completed Gretel Jacobson [facility] 02/29/2024 13:08:35 11/23/19 24 Egd biopsy single/multiple completed Gretel Jacobson [facility] 11/23/2023 15:35:26 11/11/19 24 Telemedicine Documentation completed Winston Dubois MD [address] [place], [address], [facility] 11/11/2023 15:52:00 11/26/19 23 Colonoscopy w/lesion removal completed Gretel Jacobson [facility] 12/01/2022 17:37:42 01/07/20 22 Total knee arthroplasty completed Michael Steele [facility] 01/07/2022 13:51:21 10/09/19 22 Egd biopsy single/multiple completed Gretel Jacobson [facility] 10/09/2021 13:33:49 10/11/19 20 Diagnostic colonoscopy completed Ryanne Blake [facility] 10/17/2019 12:04:55 07/27/19 19 Corticosteroid Injection - KNEE completed CHERIE TROY [address] [place] [address], [phone], [facility] 07/26/2018 13:22:59 07/14/19 19 Egd biopsy single/multiple completed Jacqueline Savage [facility] 07/14/2018 12:48:57 01/20/20 18 Egd biopsy single/multiple completed Ryanne Blake [facility] 01/19/2018 11:12:49 07/28/19 18 Egd diagnostic brush wash completed Angelica Farris [facility] 07/28/2017 13:44:30 06/18/19 18 hernia repair completed Unique Soni [facility] 07/01/2017 15:52:39 12/21/19 15 Corticosteroid Injection completed Sangeeta Wade PA-C [facility] 12/20/2014 14:19:48 12/12/19 15 Corticosteroid Injection completed Sangeeta Wade PA-C [facility] 12/11/2014 14:57:35 07/03/19 12 cardiac cath completed Skylar Diallo [facility] 08/17/2018 10:51:59 appendectomy completed Skylar Diallo [facility] 08/17/2018 10:46:48 thyroid surgery completed Skylar Diallo [facility] 08/17/2018 10:46:56 Imaging Results Imaging Date Name Status [facility]Modified by [facility] Details LastModified Time 12/31/2021 XR, chest, 2 view completed [email or web address] [facility] [address] [place] [address], [id number], 12/31/2021 15:22:34 12/31/2021 XR, knee, 4 or more view completed [facility] [address] [place] [address], [address], 01/01/2022 08:35:36 01/06/2022 XR, knee, 1 or 2 view completed [email or web address] [facility] [address] [place] [address], [id number], 01/07/2022 11:22:36 11/23/2023 unk completed [email or web address] [facility] [address] [place] [address], [id number], 11/25/2023 08:47:26 Procedure Notes None recorded. Medical Equipment None Reported. Allergies Allergen ID Allergen Name Allergen Category Reaction Reaction Severity Criticality Documentation Date Start Date Code Code System Note Provider Name and Address Organization Details Recorded Time 355492 Demerol medicatio n Not available Not available Not available 12/20/2014 25861 1 RxNorm Padmini briones [facility] 2 09:29:50 131226 chlorprom azine hydrochlo ride medicatio n Not available Not available Not available 12/20/2014 37558 8 RxNorm Fawad briones [facility] 5 14:22:03 312244 peppermin t preparati on food,medi cation Not available Not available Not available 12/20/2014 76564 RxNorm pt state s she is not aller gic to this Aimee briones [facility] 2 10:01:12 038947 Risperdal medicatio n Not available Not available Not available 12/20/2014 39024 8 RxNorm Fawad briones [facility] 5 14:22:03 186335 Remeron medicatio n Not available Not available Not available 12/20/2014 97250 4 RxNorm Fawad briones [facility] 5 14:22:03 827403 chlorproe thazine Not available Not available Not available Not available 12/20/2014 09252 RxNorm Fawad briones [facility] 5 14:22:03 669344 prednison e medicatio n Not available Not available Not available 08/21/2017 8640 RxNorm pt state s she is not aller gic to this Aimee [place] anselmo [facility] 2 10:00:52 481130 lithium Not available Not available Not available Not available 08/21/2017 6448 [facility] 8 08:29:21 262542 Geodon medicatio n Not available Not available Not available 08/21/2017 68000 4 RxNorm [facility] [place] [facility] 8 08:29:27 682991 Wellbutri n medicatio n Not available Not available Not available 08/21/2017 47220 [facility] 8 08:29:33 462702 thioridaz ine hydrochlo ride medicatio n Not available Not available Not available 08/21/2017 42712 5 RxNorm [facility] barros [place] [facility] 8 08:29:45 392234 Toradol medicatio n Not available Not available Not available 08/21/2017 81565 RxNorm Aimee [place] anselmo [facility] 2 10:00:16 199152 Latuda medicatio n seizure severe Not available 07/27/2019 44345 32 RxNorm Ryanne Blake anselmo [facility] 0 13:34:20 Medications Name Sig Start Date Stop Date Status Note LastModified by Organization Details LastModified Time Prescript ion - New 08/21 completed Order for [facility] for W[facility] Care Not Available Not Available Not Available amantadin e HCl 100 mg tablet TAKE 1 TABLET BY MOUTH THREE TIMES DAILY active Not Available Not Available No t Available celecoxib 200 mg capsule 09/09 completed Not Available Not Available Not Available cyclobenz aprine 10 mg tablet TAKE 1 TABLET (10 MG TOTAL) BY MOUTH 2 TIMES A DAY NEEDED FOR MUSCLE SPASMS. 11/10 completed 11/11/23 - not taking - HG Not Available Not Available Not Available hydroxyzi ne pamoate 100 mg capsule 08/20 completed Not Available Not Available Not Available amoxicill in 500 mg capsule TAKE 2 CAPSULES BY ORAL ROUTE EVERY 8 HOURS 07/07 completed Not Available Not Available Not Available pioglitaz one 15 mg tablet active Not Available Not Available Not Available atorvasta tin 40 mg tablet 09/09 completed Not Available Not Available Not Available methocarb avani 500 mg tablet TAKE 1 TABLET (500 MG TOTAL) BY MOUTH 2 TIMES A DAY NEEDED FOR MUSCLE SPASMS. 04/15 completed Not Available Not Available Not Available buspirone 5 mg tablet active Not Available Not Available Not Available hydrocort isone 0.5 % topical cream APPLY A THIN LAYER TO THE AFFECTED AREA(S) BY TOPICAL ROUTE 2 TIMES PER DAY 04/15 completed Not Available Not Available Not Available metformin 500 mg tablet TAKE 1 TABLET BY MOUTH EVERY DAY WITH FOOD 04/15 completed Not Available Not Available Not Available levothyro xine 175 mcg tablet TAKE 1 TABLET (175 MCG TOTAL) BY MOUTH DAILY. active Not Available Not Available No t Available nystatin 100,000 unit/mL oral suspensio n Swish, gargle, and spit 5mL 4 times a day x10 days 08/20 completed Not Available Not Available Not Available Colace 100 mg capsule Take 1 capsule twice a day by oral route. 04/27 completed Not Available Not Available Not Available Abreva 10 % topical cream active Not Available Not Available Not Available clonidine HCl 0.1 mg tablet TAKE 1 TABLET BY MOUTH UP TO TWICE DAILY NEEDED FOR ANXIETY active Not Available Not Available No t Available acetamino phen 325 mg tablet TAKE 2 TABLETS BY MOUTH 4 TIMES A DAY active Not Available Not Available No t Available gabapenti n 600 mg tablet TAKE 1 TABLET BY MOUTH 3 TIMES PER DAY 11/10 completed 11/11/23 - not taking - HG Not Available Not Available Not Available doxycycli ne hyclate 100 mg capsule active Not Available Not Available Not Available Phenergan 12.5 mg rectal supposito ry Insert by rectal route. 07/07 completed Not Available Not Available Not Available ipratropi um 0.5 mg-albute rol 3 mg (2.5 mg base)/3 mL nebulizat ion soln Inhale 3 mL by nebuliza tion route. 2017 active Not Available Not Available Not Avai lable quetiapin e 300 mg tablet 08/21 completed Not Available Not Available Not Available albuterol sulfate 2.5 mg/3 mL (0.083 %) solution for nebulizat ion INHALE 3 MILLILIT ER BY NEBULIZA TION ROUTE 3 TIMES EVERY DAY NEEDED FOR SHORTNES S OF BREATH OR WHEEZE active Not Available Not Available No t Available diphenhyd ramine 50 mg capsule active Not Available Not Available Not Available citalopra m 40 mg tablet active Not Available Not Available Not Available loperamid e 2 mg capsule active Not Available Not Available Not Available cetirizin e 10 mg tablet TAKE 1 TABLET BY MOUTH EVERY DAY active Not Available Not Available No t Available azithromy yris 250 mg tablet TAKE 2 TABLET BY ORAL ROUTE EVERY DAY FOR 1 DAY THEN 1 TABLET (250 MG) BY ORAL ROUTE ONCE DAILY FOR 4 DAYS 11/10 completed 11/11/23 - not taking - HG Not Available Not Available Not Available aspirin 325 mg tablet TAKE 1 TABLET EVERY 12 HOURS BY ORAL ROUTE FOR 30 DAYS. (STOP WARFARIN ) active Not Available Not Available No t Available ibuprofen 800 mg tablet TAKE 1 TABLET (800 MG TOTAL) BY MOUTH EVERY 8 HOURS NEEDED FOR PAIN. active Not Available Not Available No t Available fluconazo le 150 mg tablet 04/27 completed Not Available Not Available Not Available citalopra m 10 mg tablet active Not Available Not Available Not Available valacyclo vir 1 gram tablet TAKE 2 TABLETS BY MOUTH EVERY 12 HOURS 04/15 completed Not Available Not Available Not Available amoxapine 50 mg tablet active Not Available Not Available Not Available Nystop 100,000 unit/gram topical powder 11/10 completed Not Available Not Available Not Available promethaz ine 6.25 mg/5 mL oral syrup 08/20 completed Not Available Not Available Not Available prazosin 1 mg capsule 08/21 completed Not Available Not Available Not Available ondansetr on HCl 8 mg tablet TAKE 1 TABLET BY MOUTH THREE TIMES DAILY NEEDED FOR NAUSEA 04/27 completed Not Available Not Available Not Available meloxicam 15 mg tablet TAKE 1 TABLET BY MOUTH EVERY DAY 04/15 completed Not Available Not Available Not Available sucralfat e 1 gram tablet active Not Available Not Available Not Available promethaz ine 12.5 mg tablet 08/21 completed Not Available Not Available Not Available naltrexon e 50 mg tablet TAKE 1 TABLET BY MOUTH 2 TIMES PER DAY 11/10 completed 11/11/23 - not taking - HG Not Available Not Available Not Available ondansetr on HCl 4 mg tablet Take 2 tablets twice a day by oral route. active Not Available Not Available No t Available prednison e 20 mg tablet active Not Available Not Available Not Available lovastati n 40 mg tablet active Not Available Not Available Not Available dexametha sone 6 mg tablet 11/10 completed 11/11/23 - not taking - HG Not Available Not Available Not Available gabapenti n 400 mg capsule 09/09 completed Not Available Not Available Not Available hydroxyzi ne pamoate 50 mg capsule TAKE 1 CAPSULE BY MOUTH TWICE DAILY NEEDED WITH A 4 HOUR INTERVAL BETWEEN DOSING active Not Available Not Available No t Available warfarin 2.5 mg tablet TAKE 1 TABLET BY MOUTH DAILY 11/10 completed 11/11/23 - not taking - HG Not Available Not Available Not Available topiramat e 25 mg tablet active Not Available Not Available Not Available meclizine 12.5 mg tablet active Not Available Not Available Not Available metronida zole 500 mg tablet Take 1 tablet every 8 hours by oral route for 7 days. 07/07 completed Not Available Not Available Not Available oxcarbaze pine 300 mg tablet active Not Available Not Available No t Available melatonin 3 mg tablet TAKE ONE TABLET DAILY AT BEDTIME FOR SLEEP 11/10 completed 11/11/23 - not taking - HG Not Available Not Available Not Available acetamino phen 300 mg-codein e 30 mg tablet active Not Available Not Available Not Available ciproflox acin 250 mg tablet active Not Available Not Available No t Available prochlorp erazine maleate 10 mg tablet active Not Available Not Available Not Available ciproflox acin 500 mg tablet active Not Available Not Available No t Available sulfameth oxazole 800 mg-trimet hoprim 160 mg tablet TAKE 1 TABLET BY MOUTH EVERY 12 HOURS 04/15 completed Not Available Not Available Not Available tramadol 50 mg tablet TAKE 1 TABLET BY MOUTH EVERY DAY NEEDED FOR PAIN 11/10 completed 11/11/23 - not taking - HG Not Available Not Available Not Available quetiapin e 100 mg tablet active Not Available Not Available Not Available amantadin e HCl 100 mg capsule Take 1 capsule twice a day by oral route. active Not Available Not Available No t Available acetamino phen 500 mg tablet active Not Available Not Available No t Available Microzide 12.5 mg capsule Take 2 capsules every day by oral route. 07/07 completed Not Available Not Available Not Available simvastat in 40 mg tablet TAKE 1 TABLET BY MOUTH EVERY EVENING active Not Available Not Available No t Available ondansetr on 8 mg disintegr ating tablet TAKE 1 TABLET NEEDED EVERY 12 HOURS FOR NAUSEA 11/10 completed Not Available Not Available Not Available lamotrigi ne 25 mg tablet active Not Available Not Available Not Available ketorolac 10 mg tablet TAKE 1 TABLET BY MOUTH EVERY 6 HOURS NEEDED FOR UP TO 5 DAYS 11/10 completed 11/11/23 - not taking - HG Not Available Not Available Not Available levothyro xine 75 mcg tablet active Not Available Not Available Not Available meloxicam 7.5 mg tablet TAKE 1 TABLET BY MOUTH TWICE A DAY 04/15 completed Not Available Not Available Not Available oxycodone -acetamin ophen 5 mg-325 mg tablet 08/21 completed Not Available Not Available Not Available citalopra m 20 mg tablet active Not Available Not Available Not Available lorazepam 0.5 mg tablet active Not Available Not Available Not Available methocarb avani 750 mg tablet TAKE 1 TABLET BY MOUTH 3 TIMES EVERY DAY 04/15 completed Not Available Not Available Not Available temazepam 15 mg capsule 08/21 completed Not Available Not Available Not Available Nitrostat 0.4 mg sublingua l tablet active Not Available Not Available Not Available oxycodone -acetamin ophen 10 mg-325 mg tablet active Not Available Not Available Not Available trazodone 100 mg tablet active Not Available Not Available Not Available dicyclomi ne 20 mg tablet Take by oral route for 30 days. active Not Available Not Available No t Available meclizine 25 mg tablet active Not Available Not Available Not Available amlodipin e 10 mg tablet TAKE 1 TABLET BY MOUTH EVERY DAY active Not Available Not Available No t Available benzonata te 100 mg capsule TAKE 1 CAPSULE BY MOUTH THREE TIMES DAILY NEEDED FOR COUGH 04/15 completed Not Available Not Available Not Available fluvoxami ne 100 mg tablet active Not Available Not Available Not Available hydrocort isone 1 % topical cream 04/27 completed Not Available Not Available Not Available cephalexi n 500 mg capsule 09/09 completed Not Available Not Available Not Available pantopraz ole 40 mg tablet,de layed release TAKE 1 TABLET TWICE A DAY BY ORAL ROUTE FOR 90 DAYS. 2023 active egd 02/2024; ulcer healed but still symptoms . as she has not called us back, presumed relief from symptoms . so, for now, continue bid and re-asses s sx at next refill Not Available Not Available Not Available simvastat in 20 mg tablet active Not Available Not Available Not Available diphenhyd ramine 25 mg capsule active Not Available Not Available Not Available trazodone 150 mg tablet active Not Available Not Available Not Available metformin 1,000 mg tablet TAKE 2 TABLETS BY MOUTH EVERY DAY WITH THE EVENING MEAL 11/10 completed 11/11/23 - not taking - HG Not Available Not Available Not Available nystatin 100,000 unit/gram topical cream APPLY TO AFFECTED AREA(S) 2 TIMES EVERY DAY 11/10 completed Not Available Not Available Not Available buspirone 10 mg tablet active Not Available Not Available Not Available prednison e 50 mg tablet TAKE 1 TABLET BY MOUTH DAILY 04/15 completed Not Available Not Available Not Available naproxen 500 mg tablet,de layed release TAKE 1 TABLET BY MOUTH 2 TIMES EVERY DAY WITH FOOD 11/10 completed 11/11/23 - not taking - HG Not Available Not Available Not Available promethaz ine 25 mg tablet active Not Available Not Available Not Available levothyro xine 150 mcg tablet 08/20 completed Not Available Not Available Not Available ibuprofen 400 mg tablet TAKE 1 TABLET (400 MG TOTAL) BY MOUTH EVERY 6 HOURS NEEDED FOR PAIN FOR UP TO 7 DAYS. 11/10 completed 11/11/23 - not taking - HG Not Available Not Available Not Available indometha yris 50 mg capsule active Not Available Not Available Not Available gabapenti n 300 mg capsule active Not Available Not Available Not Available omeprazol e 20 mg capsule,d elayed release 04/15 completed Not Available Not Available Not Available aspirin 81 mg chewable tablet Chew 1 tablet every day by oral route. 08/21 completed Not Available Not Available Not Available monteluka st 10 mg tablet active Not Available Not Available Not Available hydroxyzi ne HCl 25 mg tablet active Not Available Not Available No t Available hydrocodo ne 5 mg-acetam inophen 500 mg tablet active Not Available Not Available Not Available levothyro xine 200 mcg tablet TAKE 1 TABLET BY MOUTH EVERY DAY 11/10 completed 11/11/23 - not taking - HG Not Available Not Available Not Available lisinopri l 5 mg tablet 09/09 completed Not Available Not Available Not Available hydrochlo rothiazid e 25 mg tablet 08/05 completed pt states she no longer takes this medicati on-dc Not Available Not Available Not Available fluvoxami ne 50 mg tablet active Not Available Not Available Not Available Levaquin 500 mg tablet active Not Available Not Available Not Available gabapenti n 100 mg capsule TAKE 1 CAPSULE BY MOUTH THREE TIMES DAILY active Not Available Not Available No t Available clozapine 25 mg tablet active Not Available Not Available Not Available epinephri ne 0.3 mg/0.3 mL injection , auto-inje ctor INJECT 0.3 ML INTRAMUS CULARALY ONCE NEEDED FOR ANAPHYLA XIS active Not Available Not Available No t Available ibuprofen 600 mg tablet TAKE 1 TABLET BY MOUTH UP TO EVERY 8 HOURS WITH FOOD NEEDED FOR KNEE PAIN 11/10 completed 11/11/23 - not taking - HG Not Available Not Available Not Available polyethyl manuel glycol 3350 17 gram/dose oral powder active Not Available Not Available Not Available oxycodone -acetamin ophen 7.5 mg-325 mg tablet active Not Available Not Available Not Available zolpidem 10 mg tablet TAKE 1 TABLET BY ORAL ROUTE 1 TIME PER DAY AT BEDTIME. active Not Available Not Available No t Available methylpre dnisolone 4 mg tablets in a dose pack 11/10 completed 11/11/23 - not taking - HG Not Available Not Available Not Available albuterol sulfate HFA 90 mcg/actua tion aerosol inhaler TAKE 2 PUFFS INHALATI ON EVERY 4 HOURS NEEDED FOR SOB--ALISSA RTNESS OF BREATH 11/10 completed Not Available Not Available Not Available ferrous sulfate 325 mg (65 mg iron) tablet,de layed release 11/10 completed 11/11/23 - not taking - HG Not Available Not Available Not Available pioglitaz one 30 mg tablet 08/21 completed Not Available Not Available Not Available celecoxib 100 mg capsule TAKE 1 CAPSULE (100 MG TOTAL) BY MOUTH 2 TIMES A DAY. 11/10 completed 11/11/23 - not taking - HG Not Available Not Available Not Available ketoconaz ole 2 % topical cream active Not Available Not Available Not Available ondansetr on 4 mg disintegr ating tablet PLACE 1 TABLET EVERY DAY BY TRANSLIN GUAL ROUTE NEEDED FOR 30 DAYS. active Not Available Not Available No t Available glyburide 1.25 mg tablet active Not Available Not Available Not Available fluticaso ne propionat e 50 mcg/actua tion nasal spray,tami pension USE 1 TO 2 SPRAYS IN EACH NOSTRIL EVERY DAY NEEDED active Not Available Not Available No t Available metformin ER 500 mg tablet,ex tended release 24 hr TAKE 4 TABLETS BY MOUTH EVERY DAY WITH EVENING MEAL active Not Available Not Available No t Available medroxypr ogesteron e 150 mg/mL intramusc ular suspensio n INJECT 1 ML INTRAMUS CULARLY EVERY 3 MONTHS 04/15 completed Not Available Not Available Not Available doxycycli ne hyclate 100 mg tablet Take 1 tablet twice a day by oral route for 5 days. 09/22 completed Not Available Not Available Not Available loratadin e 10 mg tablet TAKE 1 TABLET BY MOUTH EVERY DAY active Not Available Not Available No t Available prazosin 2 mg capsule 08/21 completed Not Available Not Available Not Available naproxen 500 mg tablet TAKE 1 TABLET (500MG) BY MOUTH 2 TIMES A DAY WITH MEALS. 08/05 completed Not Available Not Available Not Available metoclopr amide 10 mg tablet 04/27 completed Not Available Not Available Not Available amoxicill in 875 mg-potass ium clavulana te 125 mg tablet 11/10 completed 11/11/23 - not taking - HG Not Available Not Available Not Available oxycodone 5 mg tablet Take 1 tablet every 4-6 hours by oral route as needed. 11/10 completed done w this Not Available Not Available Not Available nebulizer accessori es misc 11/10 completed Not Available Not Available Not Available medroxypr ogesteron e 150 mg/mL intramusc ular syringe 04/15 completed Not Available Not Available Not Available Abilify 15 mg tablet active Not Available Not Available Not Available Abilify 20 mg tablet active Not Available Not Available Not Available Abilify 30 mg tablet active Not Available Not Available Not Available cyclobenz aprine 5 mg tablet TAKE 1 AND 1/2 TABLETS (7.5 MG) BY MOUTH 3 TIMES EVERY DAY 11/10 completed 11/11/23 - not taking HG Not Available Not Available Not Available Abilify 5 mg tablet active Not Available Not Available No t Available metoprolo l tartrate 25 mg tablet active Not Available Not Available Not Available topiramat e 50 mg tablet 08/21 completed Not Available Not Available Not Available nitrofura ntoin monohydra te/macroc rystals 100 mg capsule TAKE 1 CAPSULE BY MOUTH EVERY 12 HOURS WITH FOOD X 7 DAYS 04/15 completed Not Available Not Available Not Available duloxetin e 60 mg capsule,d elayed release active Not Available Not Available Not Available Tricor 48 mg tablet active Not Available Not Available No t Available Lyrica 25 mg capsule active Not Available Not Available Not Available loratadin e 09/09 completed Not Available Not Available Not Available amoxicill in 125mg 08/21 completed Not Available Not Available Not Available senna 04/27 completed prn Not Available Not Available Not Available Ambien 04/15 completed Not Available Not Available Not Available Depo-Prov era 09/09 completed Not Available Not Available Not Available gabapenti n 09/09 completed Not Available Not Available Not Available Celebrex 09/09 completed Not Available Not Available Not Available Miralax 1 capful BID 04/27 completed Not Available Not Available Not Available Actos 09/09 completed Not Available Not Available Not Available quetiapin e 50 mg tablet active Not Available Not Available Not Available quetiapin e 400 mg tablet TAKE 2 TABLETS (800 MG TOTAL) BY MOUTH NIGHTLY. active Not Available Not Available No t Available cholecalc iferol (vitamin D3) 25 mcg (1,000 unit) tablet 11/10 completed Not Available Not Available Not Available Januvia 100 mg tablet TAKE 1 TABLET (100 MG TOTAL) BY MOUTH ONCE A DAY. active Not Available Not Available No t Available Symbicort 160 mcg-4.5 mcg/actua tion HFA aerosol inhaler INHALE 2 PUFFS BY MOUTH TWICE DAILY active Not Available Not Available No t Available Symbicort 80 mcg-4.5 mcg/actua tion HFA aerosol inhaler active Not Available Not Available Not Available FeroSul 325 mg (65 mg iron) tablet TAKE 1 TABLET (325 MG TOTAL) BY MOUTH EVERY OTHER DAY. 11/10 completed 11/11/23 - not taking - HG Not Available Not Available Not Available Seroquel XR 200 mg tablet,ex tended release active Not Available Not Available Not Available Seroquel XR 300 mg tablet,ex tended release 06/08 completed Not Available Not Available Not Available Benefiber 07/07 completed Not Available Not Available Not Available Protonix 40 mg granules delayed-r elease packet Take 1 packet every day by oral route. 07/26 completed Not Available Not Available Not Available diclofena c 1 % topical gel APPLY (2G) TOPICALL Y 2 TIMES EVERY DAY TO THE AFFECTED AREA(S) 11/10 completed Not Available Not Available Not Available cholecalc iferol (vitamin D3) 50 mcg (2,000 unit) capsule active Not Available Not Available Not Available Vitamin D3 50 mcg (2,000 unit) tablet TAKE 1 TABLET BY MOUTH EVERY DAY 04/15 completed Not Available Not Available Not Available Fanapt 4 mg tablet Take 1 mg twice a day by oral route. 08/05 completed Not Available Not Available Not Available Latuda 40 mg tablet 04/27 completed Not Available Not Available Not Available TRUEplus Lancets 33 gauge USE TO TEST BLOOD SUGAR TWICE DAILY NEEDED active Not Available Not Available No t Available Linzess 145 mcg capsule TAKE 1 CAPSULE BY MOUTH EVERY DAY 04/15 completed Not Available Not Available Not Available Linzess 290 mcg capsule TAKE 1 CAPSULE BY MOUTH EVERY DAY 40 MINUTES BEFORE 1ST MEAL OF THE DAY 04/15 completed Not Available Not Available Not Available True Metrix Glucose Test Strip TEST BLOOD SUGAR ONCE EVERY DAY AND NEEDED active Not Available Not Available No t Available Trulicity 1.5 mg/0.5 mL subcutane ous pen injector INJECT 0.5 ML (1.5 MG TOTAL) UNDER THE SKIN ONCE A WEEK. 11/10 completed 11/11/23 - not taking - HG Not Available Not Available Not Available Vitamin B12 08/21 completed Not Available Not Available Not Available Trintelli x 5 mg tablet active Not Available Not Available Not Available Trintelli x 10 mg tablet TAKE 1 TABLET BY MOUTH 1 TIME PER DAY IN THE MORNING WITH FOOD active Not Available Not Available No t Available Linzess 72 mcg capsule TAKE 1 CAPSULE EVERY DAY BY ORAL ROUTE BEFORE MEALS FOR 30 DAYS. 11/10 completed 11/11/23 - not taking - HG Not Available Not Available Not Available Tylenol 325 mg capsule Take by oral route. 04/15 completed Not Available Not Available Not Available Ozempic 0.25 mg or 0.5 mg (2 mg/3 mL) subcutane ous pen injector active Not Available Not Available Not Available Vitals None Recorded Social History Question Answer Notes LastModified by Organizat ion Details LastModified Time Tobacco Smoking Status Never Smoker single. 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 disabled from bipolar PTSD. No alcohol or recreational drugs. Not Available [employer] 03/13/2020 03:12:04 What Is Your Level Of Alcohol Consumption? 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 07/07/2018 [id number] Information not available 03/13/2020 How Much Tobacco Do You Smoke? No [id number] Information not available 03/13/2020 How Many Years Have You Smoked Tobacco? 0 [id number] Information not available 03/13/2020 Sex: Unknown Functional Status None recorded. Mental Status None recorded. Family History Relationship Description Onset Age of this Age Resolved Age Notes LastModified by Organization Details LastModified Time Mother Mother [email or web address] Not available 08/17 10:35:07 Notes:no known GI disease in the family Medical History Condition Response asthma Y GERD / reflux Y obesity Y diabetes Y other Y thyroid disease or other endocrine probl ems Y high cholesterol Y depression Y high blood pressure Y PTSD Y Gynecological HistoryNo gynecological history recorded. Obstetrics History GPAL:G 0 P 0 0 0 0 Past Encounters Encounter ID Performer Location Encounter Start Date Encounter Closed Date Diagnosis/Indication Diagnosis SNOMED-CT Code Diagnosis ICD10 Code Diagnosis Note [id number] [facility] [address] [place] [address], [facility] [address] [place] [address] 07/01/2005 09:15:50 07/01/2005 10:26:11 [id number] [facility] [address] [place] [address] [address] [place] [address] 07/25/2010 14:25:35 07/25/2010 15:46:15 [id number] [facility] [address] [place] [address] [address] [place] [address] 02/13/2011 14:58:26 02/13/2011 15:15:20 [id number] Michael Baldwin MD [facility] [address] [place] [address], [address] [place] [address] 12/11/2014 13:22:29 12/11/2014 14:57:12 Osteoarthritis of knee [id number] 49 yo F with L knee pain x 3 weeks without significan t injury. Xrays obtained reveal moderate OA, no fracture/d islocation . Difficulty bearing weight and ambulating . Denies any numbness/t ingling. Recommend cortisone injection for relief of symptoms and PT referral. Follow up in 6 weeks for improvemen t. Encouraged to call with any further questions/ concerns. Did remind pt the importance of discussing others symptoms with PCP if needed. Relayed the positive effect of weight loss on joint pain and the possibilit y of needed image guided injections if needed in the future. [id number] [facility] [address] [facility], [address] [place] [address] 12/20/2014 13:56:21 12/20/2014 14:33:36 Osteoarthritis of knee 755668863 49 yo F with R knee pain that has continued from previous visit. L> R and cortisone injection given for pain relief. States she has had tremendous ly relief in L knee since. She recently had vertigo spells that resulted in her having pain in R knee. She presented to [facility] ED and discharged home safely. Xrays: 11/29/14: There is moderate narrowing of the medial compartmen t with periarticu lar spurring. Some periarticu lar spurring also noted laterally and there is also DJD at the patellofem oral joint. No fracture. No significan t joint effusion. She also admits to previously self injury to anterior knee, with evidence of well healed scar on patella. No recent episodes. She denies any numbness/t ingling. Previously seen for L knee pain with great pain relief with cortisone injection. With current xrays and stable clinical exam, offered cortisone injection on R side for relief of symptoms, counseled importance of watching bump in blood sugars associated with dx of DM. Will continue with course for PT for B/L knees and have her follow up after a few completed session. Encouraged to call with questions/ concerns. [id number] Michael Baldwin MD Orthoped[facility] [address] [facility] [address] [place] [address] 01/03/2015 12:56:32 01/03/2015 13:30:02 Osteoarthritis of knee [id number] 49 yo F with B/L knee pain previously seen for OA and cortisone injections . Has had multiple trip to the ED and a history of self injury to L knee, who recently 12/30/14 returned to ED with significan t L knee pain and difficulty bearing weight. Xrays were negative. Today, she is certain she would like an MRI ordered and confirmed she has not started PT for pain relief/ROM . I indicated that per Nicolasa protocol and without significan t trauma, we conservati vely manage knee pain with PT prior to additional imaging. Initially, she was not pleased with our assessment and I offered referral for second opinion, but she decline. I encouraged her to continue with current pain regime/ice /elevation . To move forward with PT evaluation and call with any additional questions/ concerns. She understood and agreed with plan. [id number] Kamila Mulligan MD [facility] [address] [place] [address] 09/09/2016 10:45:54 09/09/2016 11:59:50 Foreign body in skin 85841388 W45.8XXA [id number] Kamila Mulligan MD [facility] [address] [place] [address] 09/17/2016 13:46:36 09/17/2016 14:08:31 Surgical follow-up [id number] Z09 [id number] Kamila Mulligan MD [facility] [address] [address] 10/13/2016 12:55:53 10/13/2016 13:34:16 Surgical follow-up [id number] Z09 [id number] Ross Mayorga III, MD [facility] [address] [place] [address] 10/31/2016 19:01:24 10/31/2016 19:24:08 Chest pain 69535603 R07.9 51 year old obese female with multiple visits/adm issions for chest pain. Pt states she started with left sided chest pain prior to coming to urgent care. No SOB.No nausea or vomiting EKG ? t wave abnormalit i? e s. VS stable. ASA 4 tabs chewable given. Pt transferre d to [facility] by EMS [id number] Kenneth Wynn MD [facility] [address] [address] 02/27/2017 14:25:49 02/27/2017 15:12:00 Cellulitis and abscess of abdominal wall 144294697 L02.211 Wound healed and abscess resolved. Discontinu e dressing applicatio n. [id number] Kenneth Wynn MD [facility] [address] [address] 06/08/2017 12:50:43 06/08/2017 15:19:28 Umbilical hernia 715966433 K42.9 Symptomati c with pain. Risk of incarcerat ion. Scheduled for repair in the operating room on 06/18/17. At [facility]. [id number] Kenneth Wynn MD [facility] [address] [address] 06/26/2017 14:14:57 06/26/2017 14:41:13 Umbilical hernia 025275554 K42.9 Doing well status post repair in the operating room on 06/18/17. At [facility]. [id number] Ross Mayorga III, MD [facility] [address] [place] [address] 08/21/2017 08:24:44 08/21/2017 09:49:40 Upper respiratory infection 85056761 J06.9 Due to ongoing length of illness and exam today will treat with medication s as below. Advised rest, fluids. Pt is allergic to prednisone therefore will advise to cont. with inhaled medication . Advise to cont. with symbicort use and use Proair HFA every 4 hours. May use OTC Tylenol and cont. with cough medication prescribed from Dr. Moncada. Follow up with PCP beginning of next week for re-eval. Acute pharyngitis 880829 003 J02.9 Rapid strep negative, culture pending. Likely viral cause. Supportive care with rest, fluids, salt water gargles, Ibuprofen/ Tylenol PRN. Follow-up in 2-3 days if not improving or sooner if worsening. Candidiasis of mouth 797 [address]1830 B37.0 Use nystatin swish and spit as prescribed . F/u with PCP in 10 days if no major improvemen t in symptoms [id number] Ross merrill DO [facility] [address] [place] [address] 09/09/2017 12:58:18 09/09/2017 13:30:13 Self-injurious behavior [id number] Z72.89 Referred to tertiary facility for any further surgical management . [id number] Ross Mayorga III, MD [facility] [address] [place] [address] 09/22/2017 15:53:08 09/22/2017 17:15:13 Postoperative cellulitis of surgical wound 981144958 L03.90 Pt with left mid abdomen wounds and surgical sites. Superior wound has 2 stitches and is about 2cm of open, packed wound. No current discharge, no major pain or distension on palpation. Pt has no fevers, chills. Possible mild infection. Pt has been discharged from surgical services and is receiving wound care through visiting nurse and PCP. Will start pt on oral abx to cover for anaerobic bacteria at at this time however advised patient that if there is any further concerns for infection or worsening symptoms patient would need evaluation in the ED. [id number] Winston pierre MD [facility] [address] [facility] [address] [place] [address] 07/07/2018 11:14:38 07/07/2018 14:05:10 Gastroesophageal reflux disease without esophagitis 116091371 K21.9 Nausea and vomiting 1693 1999 R11.2 Epigastric pain 67728137 R10.13 Chronic diarrhea 5575767 09 K52.9 [id number] CHERIE TROY Orth[facility] [address] [facility], [address] [place] [address] 07/26/2018 12:29:11 07/26/2018 14:24:45 Osteoarthritis of knee 595382491 M17.12 This is very pleasant 53-year-ol d female being seen for complain of left chronic knee pain. Last seen in 2014. She has a history of osteoarthr itis. She reports a cortisone injection several years ago that gave her one weeks relief. Otherwise she is using over-the-c ounter anti-infla mmatories or Tylenol to help with the pain. She also reports a course of physical therapy. Patient reports that lately within the past month or two her left knee has been significan tly painful she is unable to walk for prolonged periods of time. X-rays were reviewed with the patient which show significan t osteoarthr itis in all the compartmen ts. For treatment we discussed a cortisone injection. Patient is a diabetic so she is aware that her blood sugars may rise. Patient acknowledg es consent for cortisone injection. Patient will follow-up on an as-needed basis. Patient agrees with plan. [id number] Rj Knight MD [facility] [address] [place] [address] 08/20/2018 14:04:07 08/20/2018 15:23:11 Electrocardiogram abnormal 223096540 R94.31 Ms. Ritchie is a pleasant 53 year old female with a question of possible prolong QT. Her ECG by my read is normal. Her QTc measured manually is 440ms. Her symptoms of tachycardi a and lightheade dness are more likely secondary to dehydratio n. She can follow up with cardiology on an as needed basis. [id number] Winston pierre MD [facility] [address] [place] [address] 07/27/2019 13:16:36 07/27/2019 14:10:35 Irritable bowel syndrome characterized by constipation 499411904 K58.1 Gastroesop hageal reflux disease without esophagitis 507919427 K21.9 Nausea and vomiting 1693 1999 R11.2 Screening for malignant neoplasm of colon 116525372 Z12.11 [id number] Winston pierre MD [address] [address] 04/27/2020 07:57:24 04/30/2020 19:22:35 Irritable bowel syndrome characterized by constipation 190982298 K58.1 Gastroesop hageal reflux disease without esophagitis 135615729 K21.9 Nausea and vomiting 1691999 R11.2 Imaging of gastrointestinal tract abnormal 863241028 R93.3 [id number] Winston pierre MD [facility] erology-A ol [address] [place] [address] 04/15/2021 10:19:54 04/16/2021 08:01:37 Gastroesophageal reflux disease without esophagitis 038454777 K21.9 Irritable bowel syndrome characterized by constipation 879740944 K58.1 History of adenomatous polyp of colon 755082148 Z86.010 Vomiting 968161699 R11.1 0 [id number] Winston pierre MD [facility] erology [address] [place] [address] 08/05/2021 09:27:42 08/05/2021 16:20:11 Gastroesophageal reflux disease without esophagitis 727462572 K21.9 Irritable bowel syndrome characterized by constipation 072190389 K58.1 History of adenomatous polyp of colon 548445967 Z86.010 Vomiting 443202435 R11.1 0 [id number] Doug Garcia MD Orthopedi cs [address] [place] [address] [place] [address] 12/31/2021 12:47:05 12/31/2021 13:55:12 Osteoarthritis of left knee joint 0772553460 34222 M17.12 [id number] MD Jayden Kowalski [facility]-A [facility] [address] [place] [address] 07/07/2022 11:23:27 07/08/2022 09:30:47 Gastroesophageal reflux disease without esophagitis 088276114 K21.9 Irritable bowel syndrome characterized by constipation 816444343 K58.1 History of adenomatous polyp of colon 026801378 Z86.010 Vomiting 470745906 R11.1 0 [id number] MD [facility] [address] [place] [address] [address] [place] [address] 11/11/2023 13:51:16 11/11/2023 16:06:10 Gastroesophageal reflux disease without esophagitis 047147658 K21.9 Irritable bowel syndrome characterized by constipation 711456325 K58.1 History of adenomatous polyp of colon 500737345 Z86.010 Vomiting 916306856 R11.1 0 Altered jaime wel function 39223558 R19.4 Health Concerns Section Related Observation LastModified by Organization Detai ls LastModified Time None Recorded Concern Status LastModified by Organization Details LastModified Time None Recorded Advance Directives Directive None Recorded Payers Encounter Date Sequence Insurance Name Policy Number Policy Bradford Covered Member ID Bradford Member ID Guarantor Name 04/15/2021 1 MEDICARE B-ID: [employer] Anuradha Ritchie [id number] Anuradha Ritchie 04/15/2021 2 MEDICAID-ID: [facility] [id number] Anuradha Ritchie [id number] Anuradha Ritchie 08/05/2021 1 MEDICARE B-ID: [employer] Anuradha Ritchie [id number] Anuradha Ritchie 08/05/2021 2 MEDICAID-ID: [facility] ([facility]) [id number] Anuradha Ritchie [id number] Anuradha Ritchie 12/31/2021 1 MEDICARE B-ID: [employer] Anuradha Ritchie [id number] Anuradha Ritchie 12/31/2021 2 [place] [facility] ([facility] [id number] Anuradha Ritchie [id number] Anuradha Ritchie 07/07/2022 1 [place] [facility] Anuradha Ritchie [id number] Anuradha Ritchie 07/07/2022 2 [place] [facility] ([facility] [id number] Anuradha Ritchie [id number] Anuradha Ritchie 11/11/2023 1 [place] [facility] Anuradha Ritchie [id number] Anuradha Ritchie 11/11/2023 2 [place] [facility] ([facility] [id number] Anuradha Ritchie [id number] Anuradha Ritchie Notes Date Note Type Note Provider Name and Address Organization Details Recorded Time 04/15/2021 text/html Remote visit.56-year-old female in for follow-up.*seen in our practice in 2010- for IBS symptoms.*DX Colon- while in [facility] in 2013 or so. Records not available.01/2018 - saw her in-house for chemical ingestion; self injurious intent, after hallucinations. Baseline psychiatric comorbidities. Similar report in 2017. In-house endoscopy- normal mucosa.*11/2017: pain, N/V, loose stools *01/2018- stool CX, C diff negative.*06/2018: for N/V/ diarrhea. all sx eventually subsided. did not do stool tests*07/2018- EGD normal. BX negative for celiac, Helicobacter, Coronado's. Acute esophagitis in mid/distal. N/V spontaneously stopped* 10/2019 -colonoscopy : admitted w pain, N/V. TI thickening with dilated SB loops. in house- colon: Normal until TI. 3 small adenoma removed. Normal BX from TI, right and left colon.*2019-discharge d home on daily linzess; took it for about 2 months and then stopped it due to diarrhea . Constipation gradually more prominent and resulted in ER visit 03/2020.*today patient reports-with high-fiber diet, including meds, and maintaining adequate water intake, she is doing well. linzess- stopped in fall 2020 . without these, BM 2-3/day. Feels empty on defecation.Non bloody . NO N/V, abd pain, and other GI sx.protonix 40mg Q AM is giving her full symptom relief.Used to have nausea and vomiting. No longer. Rarely using Zofran.Psychiatric followup ongoing. on Iloperidone. Diabetes dx >15 yr ago- HbA1C- 6.9- (6s-7s).*NSAIDs-none; infrequent tramadol only*Prior GI work-up-as above*Labs/imaging-2020-normal CBC, CMP, except creatinine of 1.2-at baseline. In 2019, TSH low and free T4 normal.*12/2020-noncon trast CT-enlarged liver, especially the left lobe. Spleen borderline enlarged at 13 cm. Subcentimeter mesenteric lymph nodes-unchanged.*11/27 19: CT- early or partial small bowel obstruction. conservative Rx and cleared up*F HX: no known GI disease in the family*Social hx: no smoking. single. 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 disabled from bipolar PTSD. No alcohol or recreational drugs.*PMHX: DM, depression/ bipolar, asthma, HTN, hypothyroid, prolonged QTc.Surgical Hx: Thyroid surgery. 02/16/2017 Retained foreign body with cellulitis and abscess of the lower left abdominal wall. -Dr. Wynn. She has needed surgeries for this particular behavior on her abdominal wall. also had umbilical hernia repair, cholecystectomy and appendectomy in the past. Winston Dubois MD [address] [place] [address], [phone], [facility] 04/15/2021 18:02:22 08/05/2021 text/html Remote visit.The patient verbally consented to a telehealth visit via hospital telephone and/or [employer] Marisela, used due to the COVID-19 pandemic, with the patient at home and the provider at [facility]. On the provider end, no other parties participated in the telehealth visit. Other parameters as per billing data.56 yo F for f/u.*seen in our practice in 2010- for IBS symptoms.DX Colon- while in [facility] in 2013 or so. Records not available.01/2018 - saw her in-house for chemical ingestion; self injurious intent, after hallucinations. Baseline psychiatric comorbidities. Similar report in 2017. In-house endoscopy- normal mucosa.*11/2017: pain, N/V, loose stools *01/2018- stool CX, C diff negative.*06/2018: for N/V/ diarrhea. all sx eventually subsided. did not do stool tests*07/2018- EGD normal. BX : -ve celiac, H py, Coronado's. Acute esophagitis in mid/distal. N/V stopped* 10/2019 -colonoscopy : admitted w pain, N/V. TI thickening with dilated SB loops. in house- colon: Normal until TI. 3 small adenoma removed. Normal BX from TI, right and left colon.*2019-DC'd home on daily linzess; took it for about 2 months and then stopped it due to diarrhea . Constipation gradually more prominent and resulted in ER visit 03/2020.*today patient reports-with high-fiber diet, including meds, and maintaining adequate water intake, was doing well.Used to have nausea and vomiting. as of early 2021, none.then, restarted or 07/3021. hence, she contacted us, as it was happening w loose stools at the same time. Can happen even without loose stools.Zofran as needed helping at 8 mg dose once or twice a day.linzess- stopped in fall 2020 . without that, BM 2-3 or 4/day. mushy stool. Feels empty on defecation.Non bloody . NO abd pain, and other GI sx.protonix 40mg Q AM is giving her full symptom relief.Psychiatric followup ongoing. on Iloperidone. Diabetes dx >15 yr ago- HbA1C- (6s-7s).*NSAIDs- naproxen BID in 05/2021. used for 4-6 wk and then, stopped; not taking any more.stopped tramadol.*Prior GI work-up-as above*Labs/imaging- 07/2021- per pt, HbA1C, 7.6 .07/2020-normal CBC, CMP, except creatinine of 1.2-at baseline.In 2019, TSH low and free T4 normal.*12/2020-noncon trast CT-enlarged liver, especially the left lobe. Spleen borderline enlarged at 13 cm. Subcentimeter mesenteric lymph nodes-unchanged.*11/27 19: CT- early or partial small bowel obstruction. conservative Rx and cleared up*F HX: no known GI disease in the family*Social hx: no smoking. single. 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 disabled from bipolar PTSD. No alcohol or recreational drugs.*PMHX: DM, depression/ bipolar, asthma, HTN, hypothyroid, prolonged QTc.Surgical Hx: Thyroid surgery. 02/16/2017 Retained foreign body with cellulitis and abscess of the lower left abdominal wall. -Dr. Wynn. She has needed surgeries for this particular behavior on her abdominal wall. also had umbilical hernia repair, cholecystectomy and appendectomy in the past. Winston Dubois MD [address] [place], [phone], [facility] 08/05/2021 18:48:43 12/31/2021 text/html Anuradha adnrew presents today f/u L knee pain. Pt presents today for preop consult for L TKA. Pt? s L knee was unresponsive to lesser treatments. As pt is experiencing functional limitations and pain is unresponsive to lesser treatment options, the recommendation is now for L TKA. Drug allergies include Geodon, Latuda, chlorproethazine, [place], Mellaril, Remeron, Risperdal, Thorazine, Wellbutrin. No known food allergies. No previous issue w/anesthesia. Surgical hx includes hernia repair, cardiac cath, appendectomy, thyroid surgery. PMHx includes psychiatric/personali ty disorder, asthma, DM, HTN, GERD, hypothyroidism, IBS. Pt reports her last A1C was 6.2%. Doug Garcia MD [address] [place], [phone], [facility] 12/31/2021 15:16:01 07/07/2022 text/html Remote encounter*57-year-old female in for follow-up.*seen in our practice in 2010- for IBS symptoms.DX Colon- while in [facility] in 2013 or so. Records not available.01/2018 - saw her in-house for chemical ingestion; self injurious intent, after hallucinations. Baseline psychiatric comorbidities. Similar report in 2017. In-house endoscopy- normal mucosa.*11/2017: pain, N/V, loose stools *01/2018- stool CX, C diff negative.*06/2018: for N/V/ diarrhea. all sx eventually subsided. did not do stool tests*07/2018- EGD normal. BX : -ve celiac, H py, Coronado's. Acute esophagitis in mid/distal. N/V stopped* 10/2019 -colonoscopy : admitted w pain, N/V. TI thickening with dilated SB loops. in house- colon: Normal until TI. 3 small adenoma removed. Normal BX from TI, right and left colon.*2019-DC'd home on daily linzess; took it for about 2 months and then stopped it due to diarrhea . Constipation gradually more prominent and resulted in ER visit 03/2020.*09/2021-EGD for emesis-minor gastritis. BX-no Coronado's, celiac, H. pylori,.For constipation, attempt Linzess 72 mcg daily.today patient reports-(linzess- stopped in fall 2020 . without that, BM 2-3 or 4/day. mushy stool)with high-fiber diet, including meds, and adequate water intake, and also, daily miralax 17 gr.also uses linzess 72mcg prn, 2-3 per month. with that, doing well. moving 2 BM/day. feels fully emptied out.Occ nausea. usually emesis. rarely needing zofran.NO abd pain, and other GI sx.protonix 40mg Q AM is giving her full symptom relief.on PO iron.Psychiatric followup ongoing. on Iloperidone. Diabetes dx >15 yr ago- HbA1C- (6s-7s).NSAIDs- prn ibuprofen for MSK pains.stopped tramadol.Labs/imagi ng-12/2021-normal CBC with Hb 12.8. Normal INR. Creatinine 1.2-baseline. After TKR , Hb 10.7-10.- per pt, HbA1C, 7.6 .In 2019, TSH low and free T4 normal.*12/2020-noncon trast CT-enlarged liver, especially the left lobe. Spleen borderline enlarged at 13 cm. Subcentimeter mesenteric lymph nodes-unchanged. 9: CT- early or partial small bowel obstruction. conservative Rx and cleared up*F HX:no known GI disease in the family*Social hx:no smoking. single. 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 disabled from bipolar PTSD. No alcohol or recreational drugs.*PMHX:DM, depression/ bipolar, asthma, HTN, hypothyroid, prolonged QTc.Surgical Hx:Thyroid surgery. 02/16/2017 Retained foreign body with cellulitis and abscess of the lower left abdominal wall. -Dr. Wynn. She has needed surgeries for this particular behavior on her abdominal wall. also had umbilical hernia repair, cholecystectomy and appendectomy in the past.left knee replacement. Winston Dubois MD [address] [place] [address], [phone], [facility] 07/07/2022 17:50:29 11/11/2023 text/html Remote encounter*58-year-old female in for follow-upseen in our practice in 2010- for IBS symptoms.DX Colon- while in [facility] in 2013 or so. Records not available.01/2018 - saw her in-house for chemical ingestion; self injurious intent, after hallucinations. Baseline psychiatric comorbidities. Similar report in 2017. In-house endoscopy- normal mucosa.*11/2017: pain, N/V, loose stools *01/2018- stool CX, C diff negative.*06/2018: for N/V/ diarrhea. all sx eventually subsided. did not do stool tests*07/2018- EGD normal. BX : -ve celiac, H py, Coronado's. Acute esophagitis in mid/distal. N/V stopped* 10/2019 -colonoscopy : admitted w pain, N/V. TI thickening with dilated SB loops. in house- colon: Normal until TI. 3 small adenoma removed. Normal BX from TI, right and left colon.*2019-DC'd home on daily linzess; took it for about 2 months and then stopped it due to diarrhea . Constipation gradually more prominent and resulted in ER visit 03/2020.*09/2021-EGD for emesis-minor gastritis. BX-no Coronado's, celiac, H. pylori,.For constipation, attempt Linzess 72 mcg daily.11/2022-colonosc opy-1 small TA. Normal TI. Residual+. Cleared. Repeat 3 yrtoday patient reports-Llinzess- stopped in fall 2020 . without that, BM 2-3 or 4/day. mushy stool. then,with high-fiber diet, incl meds, and water, and daily miralax 17 gr (linzess 72mcg prn, 2-3 per month).with that, 2 BM/day. felt fully emptied out. Occ nausea. usually emesis. rarely needing zofran.protonix 40mg Q AM was giving her full symptom relief. 07/2023: fibula surgery. only did toradol, 2 days. no opiates.from early 2023, altered BM , with skipping 2-3 days, and when going, 3-4/day. prn Imodium.from -09/2023, more h'burn. also, n/v. NO abd pain, other than rib pains from emesis.usually non bloody; on occ, bloody i was told that i can hurt the inside when throwing up . NO melena, or bleeding in stools.from 2022, on trulicity; 08/2023, moved to ozempic.Laxatives as above.Psychiatric followup ongoing. on Iloperidone. Diabetes dx >15 yr ago- HbA1C- (6s-7s).NSAIDs- prn ibuprofen for MSK pains. stopped tramadol.instead of iron, doing MVI w iron. protonix 40mg Q AMLabs/imaging-12/28 21-normal CBC with Hb 12.8. Normal INR. Creatinine 1.2-baseline. After TKR , Hb 10.7-10.- per pt, HbA1C, 7.6 .In 2019, TSH low and free T4 normal.*12/2020-noncon trast CT-enlarged liver, especially the left lobe. Spleen borderline enlarged at 13 cm. Subcentimeter mesenteric lymph nodes-unchanged. 9: CT- early or partial small bowel obstruction. conservative Rx and cleared up*F HX:no known GI disease in the family*Social hx:no smoking. single. 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 disabled from bipolar PTSD. No alcohol or recreational drugs.*PMHX:DM, depression/ bipolar, asthma, HTN, hypothyroid, prolonged QTc.Surgical Hx:Thyroid surgery. 02/16/2017 Retained FB with cellulitis and abscess of the left lower abd wall. -Dr. Wynn. needed surgeries for this particular behavior on abdominal wall. also umbilical hernia repair, cholecystectomy and appendectomy in the past. left knee replacement.ankle surgery Winston Dubois MD [address] [place] [address], [phone], [facility] 11/11/2023 20:50:58 OBGyn Episode No OBEpisode recorded.
--- OUTSIDE RECORDS SUMMARY | 2024-07-12 15:03 | XMS_ITS | Continuity of Care Document ---
Author Organization [facility] Address [address] [place] [address] [address] [place], [place] Phone [phone] Care Team Providers Care Communications Instructor Name Role Phone Ministerio Mayorga Care Team Information Mate Fourth U navailable Social History Type Date Description Comments Sex Unknown
[2024-07-12] MEDS: Flu Vacc TS2024-25(6mos up)/PF 0.5 ML SYRINGE IM (15:34)
[2024-07-12] MEDS: metFORMIN HCl 500 MG TABLET PO (15:59)
[2024-07-12] MEDS: Vortioxetine Hydrobromide 10 MG TABLET PO (15:59)
[2024-07-12 21:13] VITALS: BP 160/75; PULSE 114; RESP 20; TEMP 36.1; O2SAT 97
[2024-07-12] MEDS: Prazosin HCL 1 MG CAPSULE 3 MG PO (21:13)
[2024-07-12] MEDS: LORazepam 0.5 MG TABLET PO (21:14)
[2024-07-12] MEDS: amantadine HCL 100 MG CAPSULE PO (21:14)
[2024-07-12] MEDS: traZODone HCL 50 MG TABLET PO (21:14)
[2024-07-12] MEDS: Zolpidem Tartrate 5 MG TABLET 10 MG PO (21:15)
[2024-07-12] MEDS: Gabapentin 100 MG CAPSULE PO (21:15)
[2024-07-12] MEDS: Atorvastatin Calcium 40 MG TABLET PO (21:15)
[2024-07-12] MEDS: QUEtiapine Fumarate 400 MG TABLET 800 MG PO (21:16)
[2024-07-12] MEDS: Acetaminophen 325 MG TABLET 650 MG PO (21:16)
[2024-07-13] MEDS: Omeprazole 20 MG CAPSULE.DR PO (06:15)
[2024-07-13] MEDS: Levothyroxine Sodium 175 MCG TABLET PO (06:15)
[2024-07-13 07:42] VITALS: BP 135/71; PULSE 87; RESP 20; TEMP 36.1; O2SAT 93
[2024-07-13 07:44] LABS: Glucose, Whole Blood 151 mg/dL (60-115)
[2024-07-13] MEDS: Cholecalciferol (Vitamin D3) 10 MCG TABLET 20 MCG PO (08:14)
[2024-07-13] MEDS: Gabapentin 100 MG CAPSULE PO ×3 (08:15→20:17)
[2024-07-13] MEDS: SITagliptin Phosphate 100 MG TABLET PO (08:15)
[2024-07-13] MEDS: Aspirin 81 MG TAB.CHEW PO (08:15)
[2024-07-13] MEDS: amantadine HCL 100 MG CAPSULE PO ×3 (08:15→20:16)
[2024-07-13] MEDS: Acetaminophen 325 MG TABLET 650 MG PO ×2 (14:12→20:17)
--- NOTE | 2024-07-13 15:20 | P.PNPSI_ITS ---
Subjective Subjective Date of Service: 07/13/24 Reason For Visit: depressed si Interim History: pleasant, loquacious. complimentary of the hospital, staff, and services. would like to remain through the weekend for groups and ongoing stabilization. aware colton may be removed as of thursday. per staff, diarrhea improved, feeling much better. increased anxiety due to being moved back to . slept well overnight. Mental Status Exam Mental Status Exam Narrative: obese, wearing hospital evy. disheveled. calm, cooperative. expressing remorse and shame. no PMA/PMR. speech incr rate and amount, normal loudness, decr latency. thoughts linear and logical without delusions or paranoia. affect constricted, normo-intense, non-labile. mood not assessed. no SI/SIBI/HI/AVH expressed. Diagnostics Vital Signs (24Hr): Vital Signs - 24 hr 07/12/24 21:13 07/13/24 07:42 Temperature 97.0 F 97.0 F Pulse Rate 114 H 87 Respiratory Rate 20 20 Blood Pressure 160/75 H 135/71 Pulse Oximetry 97 93 Oxygen Delivery Method Room Air BMI result Body Mass Index 50.8 Labs Labs: Laboratory Results - last 48 hr 07/13/24 07:39 POC Glucose 151 H Medications Medications Current Medications Acetaminophen (Acetaminophen 325 Mg Tablet) 650 mg PO Q6H PRN PRN Reason: Headache/Pain, Scale 1-10 Last Admin: 07/13/24 14:12 Dose: 650 mg Al Hydroxide/Mg Hydroxide (Magnesium Hydrox/Alum Hydrox 30 Ml Oral.Susp) 30 ml PO Q6H PRN PRN Reason: Heartburn/Nausea Amantadine HCl (Amantadine Hcl 100 Mg Capsule) 100 mg PO TID [facility] Last Admin: 07/13/24 14:10 Dose: 100 mg Aspirin (Aspirin 81 Mg Tab.Chew) 81 mg PO DAILY [facility] Last Admin: 07/13/24 08:15 Dose: 81 mg Atorvastatin Calcium (Atorvastatin Calcium 40 Mg Tablet) 40 mg PO BEDTIME [facility] Last Admin: 07/12/24 21:15 Dose: 40 mg Gabapentin (Gabapentin 100 Mg Capsule) 100 mg PO TID [facility] Last Admin: 07/13/24 14:10 Dose: 100 mg Hydroxyzine HCl (Hydroxyzine Hcl 25 Mg Tablet) 25 mg PO Q6H PRN PRN Reason: mild anxiety Levothyroxine Sodium (Levothyroxine Sodium 175 Mcg Tablet) 175 mcg PO DAILY@0600 [facility] Last Admin: 07/13/24 06:15 Dose: 175 mcg Loperamide HCl (Loperamide Hcl 2 Mg Capsule) 2 mg PO Q6H PRN PRN Reason: Diarrhea Lorazepam (Lorazepam 0.5 Mg Tablet) 0.5 mg PO TID PRN PRN Reason: Anxiety Last Admin: 07/12/24 21:14 Dose: 0.5 mg Magnesium Hydroxide (Milk Of Magnesia 30 Ml Oral.Susp) 30 ml PO DAILY PRN PRN Reason: Constipation Omeprazole (Omeprazole 20 Mg Capsule.Dr) 20 mg PO DAILY@0630 [facility] Last Admin: 07/13/24 06:15 Dose: 20 mg Ondansetron HCl (Ondansetron Odt 4 Mg Tab.Rapdis) 4 mg TRANSLINGU Q6H PRN PRN Reason: Nausea And Vomiting Prazosin HCl (Prazosin Hcl 1 Mg Capsule) 3 mg PO BEDTIME [facility]; Protocol Last Admin: 07/12/24 21:13 Dose: 3 mg Quetiapine Fumarate (Quetiapine Fumarate 400 Mg Tablet) 800 mg PO BEDTIME [facility] Last Admin: 07/12/24 21:16 Dose: 800 mg Sitagliptin Phosphate (Sitagliptin Phosphate 100 Mg Tablet) 100 mg PO DAILY [facility] Last Admin: 07/13/24 08:15 Dose: 100 mg Trazodone HCl (Trazodone Hcl 50 Mg Tablet) 50 mg PO BEDTIME MRX1 PRN PRN Reason: Insomnia Last Admin: 07/12/24 21:14 Dose: 50 mg Vitamin D (Cholecalciferol (Vitamin D3) 10 Mcg Tablet) 20 mcg PO DAILY [facility] Last Admin: 07/13/24 08:14 Dose: 20 mcg Vortioxetine (Vortioxetine Hydrobromide 10 Mg Tablet) 10 mg PO DAILY@1600 [facility] Last Admin: 07/12/24 15:59 Dose: 10 mg Zolpidem Tartrate (Zolpidem Tartrate 5 Mg Tablet) 10 mg PO BEDTIME [facility] Last Admin: 07/12/24 21:15 Dose: 10 mg Allergies Allergies Allergy/AdvReac Type Severity Reaction Status Date / Time ketorolac Allergy Unknown HEADACHES Verified 07/10/24 16:46 lithium Allergy Unknown UNKNOWN Verified 07/10/24 16:46 meperidine Allergy Unknown NAUSEA/VOMI Verified 07/10/24 16:46 TING risperidone Allergy Unknown UNKNOWN Verified 07/10/24 16:33 bee pollen Allergy Unknown Verified 07/07/24 22:04 bee venom protein (honey bee) Allergy Unknown Verified 07/07/24 22:04 bupropion Allergy Unknown Verified 07/07/24 22:04 chlorproethazine Allergy Unknown Verified 07/07/24 22:04 chlorpromazine Allergy Unknown Verified 07/07/24 22:04 lurasidone Allergy Unknown Verified 07/07/24 22:04 mirtazapine Allergy Unknown Verified 07/07/24 22:04 thioridazine [From Mellaril] Allergy Unknown Verified 07/07/24 22:04 ziprasidone Allergy Unknown Verified 07/07/24 22:04 Assessment & Plan Assessment & Plan (1) Borderline personality disorder: Status: Acute Code(s): F60.3 - Borderline personality disorder (2) Chronic post-traumatic stress disorder (PTSD): Status: Acute Code(s): F43.12 - Post-traumatic stress disorder, chronic (3) RAJESH (acute kidney injury): Status: Acute Code(s): N17.9 - Acute kidney failure, unspecified Plan 3: Continue Trintellix Seroquel at bedtime gabapentin 100 t.i.d. thyroid replacement. Metformin on hold till clear that renal function has normalized check chemistries in the a.m. Will need strong discharge planning to make sure support system in place unclear if respite transition possible. 07/13: appears she is doing well, wants to stay through early next week to do group work. check BMP, restart metformin if Cr normalized. POC trending up. remove colton 07/16. Reason for continued inpatient stay Substantial Risk for: harm to self and inability to function Time Spent With Patient Time: Total time managing care of this patient today __25__ minutes.
[2024-07-13] MEDS: Vortioxetine Hydrobromide 10 MG TABLET PO (15:55)
[2024-07-13 20:00] VITALS: BP 167/75; PULSE 105; RESP 16; TEMP 36.8; O2SAT 95
[2024-07-13 20:15] LABS: Glucose, Whole Blood 146 mg/dL (60-115)
[2024-07-13 20:16] VITALS: BP 167/75
[2024-07-13] MEDS: Prazosin HCL 1 MG CAPSULE 3 MG PO (20:16)
[2024-07-13] MEDS: Zolpidem Tartrate 5 MG TABLET 10 MG PO (20:16)
[2024-07-13] MEDS: LORazepam 0.5 MG TABLET PO (20:17)
[2024-07-13] MEDS: traZODone HCL 50 MG TABLET PO (20:17)
[2024-07-13] MEDS: Atorvastatin Calcium 40 MG TABLET PO (20:17)
[2024-07-13] MEDS: QUEtiapine Fumarate 400 MG TABLET 800 MG PO (20:17)
[2024-07-14] MEDS: Omeprazole 20 MG CAPSULE.DR PO (06:19)
[2024-07-14] MEDS: Levothyroxine Sodium 175 MCG TABLET PO (06:19)
[2024-07-14 07:00] VITALS: BMI 50.2
[2024-07-14 07:40] VITALS: BP 144/71; PULSE 85; RESP 14; TEMP 36.3; O2SAT 92
[2024-07-14 07:41] LABS: Glucose, Whole Blood 137 mg/dL (60-115)
[2024-07-14] MEDS: Cholecalciferol (Vitamin D3) 10 MCG TABLET 20 MCG PO (09:02)
[2024-07-14] MEDS: LORazepam 0.5 MG TABLET PO ×2 (09:02→15:49)
[2024-07-14] MEDS: amantadine HCL 100 MG CAPSULE PO ×3 (09:02→20:24)
[2024-07-14] MEDS: Gabapentin 100 MG CAPSULE PO ×3 (09:02→20:24)
[2024-07-14] MEDS: SITagliptin Phosphate 100 MG TABLET PO (09:02)
[2024-07-14] MEDS: Aspirin 81 MG TAB.CHEW PO (09:02)
[2024-07-14 09:31] LABS: Anion Gap 13 (12-20); Blood Urea Nitrogen 16 mg/dL (9-16); Calcium 9.8 mg/dL (8.4-10.2); Carbon Dioxide 29 mmol/L (22-29); Chloride 104 mmol/L (96-108); Estimated Glomerular Filt Rate 37; Glucose Random 184 mg/dL (60-115); Sodium 141 mmol/L (135-145)
[2024-07-14 09:32] LABS: Alanine Aminotransferase 12 U/L (0-31); Albumin Level 4.2 g/dL (3.5-5.0); Alkaline Phosphatase 83 U/L (39-117); Anion Gap 14 (12-20); Aspartate Amino Transferase 21 U/L (5-31); Bilirubin Total 0.5 mg/dL (0.0-1.0); Blood Urea Nitrogen 16 mg/dL (9-16); Calcium 9.7 mg/dL (8.4-10.2); Carbon Dioxide 28 mmol/L (22-29); Chloride 104 mmol/L (96-108); Creatinine Clr Calc Pharmacy 58.8; Estimated Glomerular Filt Rate 36; Glucose Random 185 mg/dL (60-115); Potassium 4.8 mmol/L (3.3-5.1); Sodium 141 mmol/L (135-145); Total Protein 7.5 g/dL (6.5-8.0)
[2024-07-14 09:37] LABS: Alanine Aminotransferase 12 U/L (0-31); Albumin Level 4.2 g/dL (3.5-5.0); Alkaline Phosphatase 82 U/L (39-117); Anion Gap 14 (12-20); Aspartate Amino Transferase 21 U/L (5-31); Bilirubin Total 0.5 mg/dL (0.0-1.0); Blood Urea Nitrogen 16 mg/dL (9-16); Calcium 9.8 mg/dL (8.4-10.2); Carbon Dioxide 28 mmol/L (22-29); Chloride 104 mmol/L (96-108); Cholesterol 130 mg/dL (<200); Creatinine Clr Calc Pharmacy 59.2; Estimated Glomerular Filt Rate 37; Glucose Fasting 184 mg/dL (60-99); HDL Cholesterol 32 mg/dL (>40); LDL Cholesterol Calculated 67 mg/dL (<100); Potassium 4.6 mmol/L (3.3-5.1); Sodium 141 mmol/L (135-145); Total Protein 7.5 g/dL (6.5-8.0); Triglycerides 159 mg/dL (<150)
[2024-07-14 10:07] LABS: Folate 14.5 ng/mL (> or = 4.0); Vitamin B12 169 pg/mL (200-900)
--- NOTE | 2024-07-14 12:01 | HO.PSYCHPN ---
Subjective Subjective Date of Service: 07/14/24 Reason For Visit: depressed si Interim History: Active on unit. social with peers. attending groups. medication compliant. Patient reports feeling good and not depressed ; she reports some anxiety because of the noise on the unit . Patient states she is benefiting from attending groups. denies SI/HI/VH/AH. Medication Compliance: Yes Side effects from medications: No Attending Groups: Yes Mental Status Exam Mental Status Exam Patient Appearance: Malodorous Patient Orientation: Person, Place, Time and Situation Level of Consciousness: Awake and Alert Patient Behavior: Appropriate, Cooperative and Good Eye Contact Mood Description: Calm Affect Description: Calm Ability to Follow Directions: Good Speech Pattern: Clear and Appropriate Memory Description: Intact Hallucinations: None Delusions: Not Present Thought Process: Intact Thought Content: positive for Intact Diagnostics Vital Signs (24Hr): Vital Signs - 24 hr 07/13/24 20:00 07/13/24 20:16 07/14/24 07:40 Temperature 98.2 F 97.4 F Pulse Rate 105 H 85 Respiratory Rate 16 14 Blood Pressure 167/75 H 167/75 H 144/71 H Pulse Oximetry 95 92 Oxygen Delivery Method Room Air Room Air BMI result Body Mass Index 50.2 Labs 07/14/24 08:47 Labs: Laboratory Results - last 48 hr 07/13/24 07/13/24 07/14/24 07:39 20:09 07:37 Sodium Potassium Chloride Carbon Dioxide Anion Gap BUN Creatinine Estim Creat Clear Calc Estimated GFR POC Glucose 151 H 146 H 137 H Random Glucose Fasting Glucose Calcium Total Bilirubin AST ALT Alkaline Phosphatase Total Protein Albumin Triglycerides Cholesterol LDL Cholesterol, Calc HDL Cholesterol Vitamin B12 Folate [facility] 07/14/24 07/14/24 07/14/24 08:47 08:47 08:47 Sodium 141 141 141 Potassium 4.8 Chloride Carbon Dioxide Anion Gap BUN Creatinine Estim Creat Clear Calc Estimated GFR POC Glucose Random Glucose Fasting Glucose Calcium Total Bilirubin AST ALT Alkaline Phosphatase Total Protein Albumin Triglycerides Cholesterol LDL Cholesterol, Calc HDL Cholesterol Vitamin B12 Folate [facility] 07/14/24 07/14/24 07/14/24 08:47 08:47 08:47 Sodium Potassium 4.6 5.0 Chloride 104 104 Carbon Dioxide Anion Gap BUN Creatinine Estim Creat Clear Calc Estimated GFR POC Glucose Random Glucose Fasting Glucose Calcium Total Bilirubin AST ALT Alkaline Phosphatase Total Protein Albumin Triglycerides Cholesterol LDL Cholesterol, Calc HDL Cholesterol Vitamin B12 Folate [facility] 0307/14/24 07/14/24 08:47 08:47 08:47 Sodium Potassium Chloride 104 Carbon Dioxide 28 28 29 Anion Gap 14 BUN Creatinine Estim Creat Clear Calc Estimated GFR POC Glucose Random Glucose Fasting Glucose Calcium Total Bilirubin AST ALT Alkaline Phosphatase Total Protein Albumin Triglycerides Cholesterol LDL Cholesterol, Calc HDL Cholesterol Vitamin B12 Folate [facility] 07/14/24 07/14/24 07/14/24 08:47 08:47 08:47 Sodium Potassium Chloride Carbon Dioxide Anion Gap 14 13 BUN 16 16 Creatinine Estim Creat Clear Calc Estimated GFR POC Glucose Random Glucose Fasting Glucose Calcium Total Bilirubin AST ALT Alkaline Phosphatase Total Protein Albumin Triglycerides Cholesterol LDL Cholesterol, Calc HDL Cholesterol Vitamin B12 Folate [facility] 07/14/24 07/14/24 07/14/24 08:47 08:47 08:47 Sodium Potassium Chloride Carbon Dioxide Anion Gap BUN 16 Creatinine 1.48 H 1.47 H 1.45 H Estim Creat Clear Calc 58.8 Estimated GFR POC Glucose Random Glucose Fasting Glucose Calcium Total Bilirubin AST ALT Alkaline Phosphatase Total Protein Albumin Triglycerides Cholesterol LDL Cholesterol, Calc HDL Cholesterol Vitamin B12 Folate [facility] 07/14/24 07/14/24 07/14/24 08:47 08:47 08:47 Sodium Potassium Chloride Carbon Dioxide Anion Gap BUN Creatinine Estim Creat Clear Calc 59.2 60.0 Estimated GFR 36 37 POC Glucose Random Glucose Fasting Glucose Calcium Total Bilirubin AST ALT Alkaline Phosphatase Total Protein Albumin Triglycerides Cholesterol LDL Cholesterol, Calc HDL Cholesterol Vitamin B12 Folate [facility] 07/14/24 07/14/24 07/14/24 08:47 08:47 08:47 Sodium Potassium Chloride Carbon Dioxide Anion Gap BUN Creatinine Estim Creat Clear Calc Estimated GFR 37 POC Glucose Random Glucose 185 H 184 H Fasting Glucose 184 H Calcium 9.7 D 9.8 Total Bilirubin AST ALT Alkaline Phosphatase Total Protein Albumin Triglycerides Cholesterol LDL Cholesterol, Calc HDL Cholesterol Vitamin B12 Folate [facility] 07/14/24 07/14/24 07/14/24 08:47 08:47 08:47 Sodium Potassium Chloride Carbon Dioxide Anion Gap BUN Creatinine Estim Creat Clear Calc Estimated GFR POC Glucose Random Glucose Fasting Glucose Calcium 9.8 Total Bilirubin 0.5 0.5 AST 21 21 ALT 12 Alkaline Phosphatase Total Protein Albumin Triglycerides Cholesterol LDL Cholesterol, Calc HDL Cholesterol Vitamin B12 Folate [facility] 07/14/24 07/14/24 07/14/24 08:47 08:47 08:47 Sodium Potassium Chloride Carbon Dioxide Anion Gap BUN Creatinine Estim Creat Clear Calc Estimated GFR POC Glucose Random Glucose Fasting Glucose Calcium Total Bilirubin AST ALT 12 Alkaline Phosphatase 83 82 Total Protein 7.5 7.5 Albumin 4.2 Triglycerides Cholesterol LDL Cholesterol, Calc HDL Cholesterol Vitamin B12 Folate [facility] 07/14/24 08:47 Sodium Potassium Chloride Carbon Dioxide Anion Gap BUN Creatinine Estim Creat Clear Calc Estimated GFR POC Glucose Random Glucose Fasting Glucose Calcium Total Bilirubin AST ALT Alkaline Phosphatase Total Protein Albumin 4.2 Triglycerides 159 H Cholesterol 130 LDL Cholesterol, Calc 67 HDL Cholesterol 32 L Vitamin B12 169 L Folate 14.5 TSH 3.30 Medications Medications Current Medications Acetaminophen (Acetaminophen 325 Mg Tablet) 650 mg PO Q6H PRN PRN Reason: Headache/Pain, Scale 1-10 Last Admin: 07/13/24 20:17 Dose: 650 mg Al Hydroxide/Mg Hydroxide (Magnesium Hydrox/Alum Hydrox 30 Ml Oral.Susp) 30 ml PO Q6H PRN PRN Reason: Heartburn/Nausea Amantadine HCl (Amantadine Hcl 100 Mg Capsule) 100 mg PO TID [facility] Last Admin: 07/14/24 09:02 Dose: 100 mg Aspirin (Aspirin 81 Mg Tab.Chew) 81 mg PO DAILY [facility] Last Admin: 07/14/24 09:02 Dose: 81 mg Atorvastatin Calcium (Atorvastatin Calcium 40 Mg Tablet) 40 mg PO BEDTIME [facility] Last Admin: 07/13/24 20:17 Dose: 40 mg Gabapentin (Gabapentin 100 Mg Capsule) 100 mg PO TID [facility] Last Admin: 07/14/24 09:02 Dose: 100 mg Hydroxyzine HCl (Hydroxyzine Hcl 25 Mg Tablet) 25 mg PO Q6H PRN PRN Reason: mild anxiety Levothyroxine Sodium (Levothyroxine Sodium 175 Mcg Tablet) 175 mcg PO DAILY@0600 [facility] Last Admin: 07/14/24 06:19 Dose: 175 mcg Loperamide HCl (Loperamide Hcl 2 Mg Capsule) 2 mg PO Q6H PRN PRN Reason: Diarrhea Lorazepam (Lorazepam 0.5 Mg Tablet) 0.5 mg PO TID PRN PRN Reason: Anxiety Last Admin: 07/14/24 09:02 Dose: 0.5 mg Magnesium Hydroxide (Milk Of Magnesia 30 Ml Oral.Susp) 30 ml PO DAILY PRN PRN Reason: Constipation Omeprazole (Omeprazole 20 Mg Capsule.) 20 mg PO DAILY@0630 [facility] Last Admin: 07/14/24 06:19 Dose: 20 mg Ondansetron HCl (Ondansetron Odt 4 Mg Tab.Rapdis) 4 mg TRANSLINGU Q6H PRN PRN Reason: Nausea And Vomiting Prazosin HCl (Prazosin Hcl 1 Mg Capsule) 3 mg PO BEDTIME [facility]; Protocol Last Admin: 07/13/24 20:16 Dose: 3 mg Quetiapine Fumarate (Quetiapine Fumarate 400 Mg Tablet) 800 mg PO BEDTIME [facility] Last Admin: 07/13/24 20:17 Dose: 800 mg Sitagliptin Phosphate (Sitagliptin Phosphate 100 Mg Tablet) 100 mg PO DAILY [facility] Last Admin: 07/14/24 09:02 Dose: 100 mg Trazodone HCl (Trazodone Hcl 50 Mg Tablet) 50 mg PO BEDTIME MRX1 PRN PRN Reason: Insomnia Last Admin: 07/13/24 20:17 Dose: 50 mg Vitamin D (Cholecalciferol (Vitamin D3) 10 Mcg Tablet) 20 mcg PO DAILY [facility] Last Admin: 07/14/24 09:02 Dose: 20 mcg Vortioxetine (Vortioxetine Hydrobromide 10 Mg Tablet) 10 mg PO DAILY@1600 [facility] Last Admin: 07/13/24 15:55 Dose: 10 mg Zolpidem Tartrate (Zolpidem Tartrate 5 Mg Tablet) 10 mg PO BEDTIME [facility] Last Admin: 07/13/24 20:16 Dose: 10 mg Allergies Allergies Allergy/AdvReac Type Severity Reaction Status Date / Time ketorolac Allergy Unknown HEADACHES Verified 07/10/24 16:46 lithium Allergy Unknown UNKNOWN Verified 07/10/24 16:46 meperidine Allergy Unknown NAUSEA/VOMI Verified 07/10/24 16:46 TING risperidone Allergy Unknown UNKNOWN Verified 07/10/24 16:33 bee pollen Allergy Unknown Verified 07/07/24 22:04 bee venom protein (honey bee) Allergy Unknown Verified 07/07/24 22:04 bupropion Allergy Unknown Verified 07/07/24 22:04 chlorproethazine Allergy Unknown Verified 07/07/24 22:04 chlorpromazine Allergy Unknown Verified 07/07/24 22:04 lurasidone Allergy Unknown Verified 07/07/24 22:04 mirtazapine Allergy Unknown Verified 07/07/24 22:04 thioridazine [From Mellaril] Allergy Unknown Verified 07/07/24 22:04 ziprasidone Allergy Unknown Verified 07/07/24 22:04 Assessment & Plan Assessment & Plan (1) Borderline personality disorder: Status: Acute Code(s): F60.3 - Borderline personality disorder (2) Chronic post-traumatic stress disorder (PTSD): Status: Acute Code(s): F43.12 - Post-traumatic stress disorder, chronic (3) RAJESH (acute kidney injury): Status: Acute Code(s): N17.9 - Acute kidney failure, unspecified Plan 07/12: Continue Trintellix Seroquel at bedtime gabapentin 100 t.i.d. thyroid replacement. Metformin on hold till clear that renal function has normalized check chemistries in the a.m. Will need strong discharge planning to make sure support system in place unclear if respite transition possible. 07/13: appears she is doing well, wants to stay through early next week to do group work. check BMP, restart metformin if Cr normalized. POC trending up. remove colton 07/16. 07/14: States she is benefiting from attending groups. some anxiety. Wound consult placed. continue tx plan. Patient educated on: therapeutic strategies Reason for continued inpatient stay Substantial Risk for: med/psych decompensation Time Spent With Patient Time: Total time managing care of this patient today _20___ minutes.
[2024-07-14] MEDS: Vortioxetine Hydrobromide 10 MG TABLET PO (15:49)
[2024-07-14] MEDS: hydrOXYzine HCL 25 MG TABLET PO (17:10)
[2024-07-14 20:00] VITALS: BP 157/68; PULSE 105; RESP 15; TEMP 36.2; O2SAT 97
[2024-07-14 20:23] VITALS: BP 157/68
[2024-07-14] MEDS: traZODone HCL 50 MG TABLET PO (20:23)
[2024-07-14] MEDS: Prazosin HCL 1 MG CAPSULE 3 MG PO (20:23)
[2024-07-14] MEDS: QUEtiapine Fumarate 400 MG TABLET 800 MG PO (20:24)
[2024-07-14] MEDS: Atorvastatin Calcium 40 MG TABLET PO (20:24)
[2024-07-14] MEDS: Zolpidem Tartrate 5 MG TABLET 10 MG PO (20:25)
[2024-07-14 20:45] LABS: Glucose, Whole Blood 138 mg/dL (60-115)
[2024-07-15] MEDS: Levothyroxine Sodium 175 MCG TABLET PO (06:09)
[2024-07-15] MEDS: Omeprazole 20 MG CAPSULE.DR PO (06:38)
[2024-07-15 08:11] VITALS: BP 143/73; PULSE 89; RESP 14; TEMP 36.8; O2SAT 92
[2024-07-15 08:21] LABS: Glucose, Whole Blood 123 mg/dL (60-115)
[2024-07-15] MEDS: amantadine HCL 100 MG CAPSULE PO ×3 (09:13→20:39)
[2024-07-15] MEDS: Aspirin 81 MG TAB.CHEW PO (09:13)
[2024-07-15] MEDS: Gabapentin 100 MG CAPSULE PO ×3 (09:13→20:38)
[2024-07-15] MEDS: SITagliptin Phosphate 100 MG TABLET PO (09:13)
[2024-07-15] MEDS: Cholecalciferol (Vitamin D3) 10 MCG TABLET 20 MCG PO (09:13)
[2024-07-15] MEDS: LORazepam 0.5 MG TABLET PO (09:17)
--- NOTE | 2024-07-15 13:22 | P.PNPSI_ITS ---
Subjective Subjective Date of Service: 07/15/24 Reason For Visit: depressed si Interim History: Active on unit. social with peers. attending groups. medication compliant. Patient reports feeling really good ; pt stated, the only thing that bothers me is the patient singing or the other ones being loud and laughing. I like it when it's quiet . denies SI/HI/VH/AH. denies any issues at this time. Medication Compliance: Yes Side effects from medications: No Attending Groups: Yes Mental Status Exam Mental Status Exam Patient Appearance: Malodorous Patient Orientation: Person, Place, Time and Situation Level of Consciousness: Awake and Alert Patient Behavior: Appropriate, Cooperative and Good Eye Contact Behavior Comments: Using walker Mood Description: Calm Affect Description: Calm Ability to Follow Directions: Good Speech Pattern: Clear and Appropriate Memory Description: Intact Hallucinations: None Delusions: Not Present Thought Process: Intact Thought Content: positive for Intact Diagnostics Vital Signs (24Hr): Vital Signs - 24 hr 07/14/24 20:00 07/14/24 20:23 07/15/24 08:11 Temperature 97.1 F 98.3 F Pulse Rate 105 H 89 Respiratory Rate 15 14 Blood Pressure 157/68 H 157/68 H 143/73 H Pulse Oximetry 97 92 Oxygen Delivery Method Room Air Room Air BMI result Body Mass Index 50.2 Labs 07/14/24 08:47 Labs: Laboratory Results - last 48 hr 07/13/24 07/14/24 07/14/24 20:09 07:37 08:47 Sodium 141 Potassium Chloride Carbon Dioxide Anion Gap BUN Creatinine Estim Creat Clear Calc Estimated GFR POC Glucose 146 H 137 H Random Glucose Fasting Glucose Calcium Total Bilirubin AST ALT Alkaline Phosphatase Total Protein Albumin Triglycerides Cholesterol LDL Cholesterol, Calc HDL Cholesterol Vitamin B12 Folate [facility] 07/14/24 07/14/24 07/14/24 08:47 08:47 08:47 Sodium 141 141 Potassium 4.8 4.6 Chloride Carbon Dioxide Anion Gap BUN Creatinine Estim Creat Clear Calc Estimated GFR POC Glucose Random Glucose Fasting Glucose Calcium Total Bilirubin AST ALT Alkaline Phosphatase Total Protein Albumin Triglycerides Cholesterol LDL Cholesterol, Calc HDL Cholesterol Vitamin B12 Folate [facility] 07/14/24 07/14/24 07/14/24 08:47 08:47 08:47 Sodium Potassium 5.0 Chloride 104 104 104 Carbon Dioxide 28 Anion Gap BUN Creatinine Estim Creat Clear Calc Estimated GFR POC Glucose Random Glucose Fasting Glucose Calcium Total Bilirubin AST ALT Alkaline Phosphatase Total Protein Albumin Triglycerides Cholesterol LDL Cholesterol, Calc HDL Cholesterol Vitamin B12 Folate [facility] 07/14/24 07/14/24 07/14/24 08:47 08:47 08:47 Sodium Potassium Chloride Carbon Dioxide 28 29 Anion Gap 14 14 BUN Creatinine Estim Creat Clear Calc Estimated GFR POC Glucose Random Glucose Fasting Glucose Calcium Total Bilirubin AST ALT Alkaline Phosphatase Total Protein Albumin Triglycerides Cholesterol LDL Cholesterol, Calc HDL Cholesterol Vitamin B12 Folate [facility] 07/14/24 07/14/24 07/14/24 08:47 08:47 08:47 Sodium Potassium Chloride Carbon Dioxide Anion Gap 13 BUN 16 16 16 Creatinine 1.48 H Estim Creat Clear Calc Estimated GFR POC Glucose Random Glucose Fasting Glucose Calcium Total Bilirubin AST ALT Alkaline Phosphatase Total Protein Albumin Triglycerides Cholesterol LDL Cholesterol, Calc HDL Cholesterol Vitamin B12 Folate [facility] 07/14/24 07/14/24 07/14/24 08:47 08:47 08:47 Sodium Potassium Chloride Carbon Dioxide Anion Gap BUN Creatinine 1.47 H 1.45 H Estim Creat Clear Calc 58.8 59.2 Estimated GFR POC Glucose Random Glucose Fasting Glucose Calcium Total Bilirubin AST ALT Alkaline Phosphatase Total Protein Albumin Triglycerides Cholesterol LDL Cholesterol, Calc HDL Cholesterol Vitamin B12 Folate [facility] 07/14/24 07/14/24 07/14/24 08:47 08:47 08:47 Sodium Potassium Chloride Carbon Dioxide Anion Gap BUN Creatinine Estim Creat Clear Calc 60.0 Estimated GFR 36 37 37 POC Glucose Random Glucose 185 H Fasting Glucose Calcium Total Bilirubin AST ALT Alkaline Phosphatase Total Protein Albumin Triglycerides Cholesterol LDL Cholesterol, Calc HDL Cholesterol Vitamin B12 Folate [facility] 07/14/24 07/14/24 07/14/24 08:47 08:47 08:47 Sodium Potassium Chloride Carbon Dioxide Anion Gap BUN Creatinine Estim Creat Clear Calc Estimated GFR POC Glucose Random Glucose 184 H Fasting Glucose 184 H Calcium 9.7 D 9.8 9.8 Total Bilirubin 0.5 AST ALT Alkaline Phosphatase Total Protein Albumin Triglycerides Cholesterol LDL Cholesterol, Calc HDL Cholesterol Vitamin B12 Folate [facility] 07/14/24 07/14/24 07/14/24 08:47 08:47 08:47 Sodium Potassium Chloride Carbon Dioxide Anion Gap BUN Creatinine Estim Creat Clear Calc Estimated GFR POC Glucose Random Glucose Fasting Glucose Calcium Total Bilirubin 0.5 AST 21 21 ALT 12 12 Alkaline Phosphatase 83 Total Protein Albumin Triglycerides Cholesterol LDL Cholesterol, Calc HDL Cholesterol Vitamin B12 Folate [facility] 07/14/24 07/14/24 07/14/24 08:47 08:47 08:47 Sodium Potassium Chloride Carbon Dioxide Anion Gap BUN Creatinine Estim Creat Clear Calc Estimated GFR POC Glucose Random Glucose Fasting Glucose Calcium Total Bilirubin AST ALT Alkaline Phosphatase 82 Total Protein 7.5 7.5 Albumin 4.2 4.2 Triglycerides 159 H Cholesterol 130 LDL Cholesterol, Calc 67 HDL Cholesterol 32 L Vitamin B12 169 L Folate 14.5 TSH 3.30 07/14/24 07/15/24 20:40 08:17 Sodium Potassium Chloride Carbon Dioxide Anion Gap BUN Creatinine Estim Creat Clear Calc Estimated GFR POC Glucose 138 H 123 H Random Glucose Fasting Glucose Calcium Total Bilirubin AST ALT Alkaline Phosphatase Total Protein Albumin Triglycerides Cholesterol LDL Cholesterol, Calc HDL Cholesterol Vitamin B12 Folate TSH Medications Medications Current Medications Acetaminophen (Acetaminophen 325 Mg Tablet) 650 mg PO Q6H PRN PRN Reason: Headache/Pain, Scale 1-10 Last Admin: 07/13/24 20:17 Dose: 650 mg Al Hydroxide/Mg Hydroxide (Magnesium Hydrox/Alum Hydrox 30 Ml Oral.Susp) 30 ml PO Q6H PRN PRN Reason: Heartburn/Nausea Amantadine HCl (Amantadine Hcl 100 Mg Capsule) 100 mg PO TID [facility] Last Admin: 07/15/24 09:13 Dose: 100 mg Aspirin (Aspirin 81 Mg Tab.Chew) 81 mg PO DAILY [facility] Last Admin: 07/15/24 09:13 Dose: 81 mg Atorvastatin Calcium (Atorvastatin Calcium 40 Mg Tablet) 40 mg PO BEDTIME [facility] Last Admin: 07/14/24 20:24 Dose: 40 mg Gabapentin (Gabapentin 100 Mg Capsule) 100 mg PO TID [facility] Last Admin: 07/15/24 09:13 Dose: 100 mg Hydroxyzine HCl (Hydroxyzine Hcl 25 Mg Tablet) 25 mg PO Q6H PRN PRN Reason: mild anxiety Last Admin: 07/14/24 17:10 Dose: 25 mg Levothyroxine Sodium (Levothyroxine Sodium 175 Mcg Tablet) 175 mcg PO DAILY@0600 [facility] Last Admin: 07/15/24 06:09 Dose: 175 mcg Loperamide HCl (Loperamide Hcl 2 Mg Capsule) 2 mg PO Q6H PRN PRN Reason: Diarrhea Lorazepam (Lorazepam 0.5 Mg Tablet) 0.5 mg PO TID PRN PRN Reason: Anxiety Last Admin: 07/15/24 09:17 Dose: 0.5 mg Magnesium Hydroxide (Milk Of Magnesia 30 Ml Oral.Susp) 30 ml PO DAILY PRN PRN Reason: Constipation Omeprazole (Omeprazole 20 Mg Capsule.Dr) 20 mg PO DAILY@0630 [facility] Last Admin: 07/15/24 06:38 Dose: 20 mg Ondansetron HCl (Ondansetron Odt 4 Mg Tab.Rapdis) 4 mg TRANSLINGU Q6H PRN PRN Reason: Nausea And Vomiting Prazosin HCl (Prazosin Hcl 1 Mg Capsule) 3 mg PO BEDTIME [facility]; Protocol Last Admin: 07/14/24 20:23 Dose: 3 mg Quetiapine Fumarate (Quetiapine Fumarate 400 Mg Tablet) 800 mg PO BEDTIME [facility] Last Admin: 07/14/24 20:24 Dose: 800 mg Sitagliptin Phosphate (Sitagliptin Phosphate 100 Mg Tablet) 100 mg PO DAILY [facility] Last Admin: 07/15/24 09:13 Dose: 100 mg Trazodone HCl (Trazodone Hcl 50 Mg Tablet) 50 mg PO BEDTIME MRX1 PRN PRN Reason: Insomnia Last Admin: 07/14/24 20:23 Dose: 50 mg Vitamin D (Cholecalciferol (Vitamin D3) 10 Mcg Tablet) 20 mcg PO DAILY [facility] Last Admin: 07/15/24 09:13 Dose: 20 mcg Vortioxetine (Vortioxetine Hydrobromide 10 Mg Tablet) 10 mg PO DAILY@1600 [facility] Last Admin: 07/14/24 15:49 Dose: 10 mg Zolpidem Tartrate (Zolpidem Tartrate 5 Mg Tablet) 10 mg PO BEDTIME [facility] Last Admin: 07/14/24 20:25 Dose: 10 mg Allergies Allergies Allergy/AdvReac Type Severity Reaction Status Date / Time ketorolac Allergy Unknown HEADACHES Verified 07/10/24 16:46 lithium Allergy Unknown UNKNOWN Verified 07/10/24 16:46 meperidine Allergy Unknown NAUSEA/VOMI Verified 07/10/24 16:46 TING risperidone Allergy Unknown UNKNOWN Verified 07/10/24 16:33 bee pollen Allergy Unknown Verified 07/07/24 22:04 bee venom protein (honey bee) Allergy Unknown Verified 07/07/24 22:04 bupropion Allergy Unknown Verified 07/07/24 22:04 chlorproethazine Allergy Unknown Verified 07/07/24 22:04 chlorpromazine Allergy Unknown Verified 07/07/24 22:04 lurasidone Allergy Unknown Verified 07/07/24 22:04 mirtazapine Allergy Unknown Verified 07/07/24 22:04 thioridazine [From Mellaril] Allergy Unknown Verified 07/07/24 22:04 ziprasidone Allergy Unknown Verified 07/07/24 22:04 Assessment & Plan Assessment & Plan (1) Borderline personality disorder: Status: Acute Code(s): F60.3 - Borderline personality disorder (2) Chronic post-traumatic stress disorder (PTSD): Status: Acute Code(s): F43.12 - Post-traumatic stress disorder, chronic (3) RAJESH (acute kidney injury): Status: Acute Code(s): N17.9 - Acute kidney failure, unspecified Plan 07/12: Continue Trintellix Seroquel at bedtime gabapentin 100 t.i.d. thyroid replacement. Metformin on hold till clear that renal function has normalized check chemistries in the a.m. Will need strong discharge planning to make sure support system in place unclear if respite transition possible. 07/13: appears she is doing well, wants to stay through early next week to do group work. check BMP, restart metformin if Cr normalized. POC trending up. remove colton 07/16. 07/14: States she is benefiting from attending groups. some anxiety. Wound consult placed. continue tx plan. 07/14: feels good. enjoying groups. plans for dc next week. continue current tx plan Patient educated on: medication risk/benefits Reason for continued inpatient stay Substantial Risk for: med/psych decompensation Time Spent With Patient Time: Total time managing care of this patient today _20___ minutes.
[2024-07-15] MEDS: Vortioxetine Hydrobromide 10 MG TABLET PO (15:12)
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
[2024-07-15 20:00] VITALS: BP 127/88; PULSE 101; RESP 18; TEMP 36.4; O2SAT 98
[2024-07-15 20:37] VITALS: BP 127/88
[2024-07-15] MEDS: Prazosin HCL 1 MG CAPSULE 3 MG PO (20:37)
[2024-07-15] MEDS: Zolpidem Tartrate 5 MG TABLET 10 MG PO (20:38)
[2024-07-15] MEDS: Atorvastatin Calcium 40 MG TABLET PO (20:38)
[2024-07-15] MEDS: QUEtiapine Fumarate 400 MG TABLET 800 MG PO (20:39)
[2024-07-15] MEDS: Ondansetron ODT 4 MG TAB.RAPDIS TRANSLINGU (21:04)
[2024-07-15 21:05] LABS: Glucose, Whole Blood 172 mg/dL (60-115)
[2024-07-16] MEDS: Levothyroxine Sodium 175 MCG TABLET PO (06:13)
[2024-07-16] MEDS: Omeprazole 20 MG CAPSULE.DR PO (06:13)
[2024-07-16] MEDS: Acetaminophen 325 MG TABLET 975 MG PO ×3 (06:14→20:37)
[2024-07-16 07:30] VITALS: BP 132/69; PULSE 79; RESP 14; TEMP 36.7; O2SAT 92
[2024-07-16 07:44] LABS: Glucose, Whole Blood 139 mg/dL (60-115)
[2024-07-16] MEDS: Cholecalciferol (Vitamin D3) 10 MCG TABLET 20 MCG PO (08:33)
[2024-07-16] MEDS: Aspirin 81 MG TAB.CHEW PO (08:33)
[2024-07-16] MEDS: Gabapentin 100 MG CAPSULE PO ×3 (08:33→20:19)
[2024-07-16] MEDS: amantadine HCL 100 MG CAPSULE PO ×3 (08:33→20:19)
[2024-07-16] MEDS: SITagliptin Phosphate 100 MG TABLET PO (08:33)
[2024-07-16] MEDS: Ondansetron ODT 4 MG TAB.RAPDIS TRANSLINGU (09:15)
--- NOTE | 2024-07-16 11:14 | HO.PSYCHPN ---
Subjective Subjective Date of Service: 07/16/24 Reason For Visit: depressed si Subjective Notes: Conditional Voluntary Interim History: Pt slept through the night. She is sitting in common area, smiles and greets this insurance underwriter sales. She reports she is doing very well and has enjoyed groups a lot. She reports she learned a new important part of self care which she explains is making myself a priority. She reports always helping others and not focusing on herself. No VH/AH. No delusional content. taking medications. Mental Status Exam Mental Status Exam Narrative: obese, wearing hospital evy. disheveled. calm, cooperative. expressing remorse and shame. no PMA/PMR. speech incr rate and amount, normal loudness, decr latency. thoughts linear and logical without delusions or paranoia. affect constricted, normo-intense, non-labile. mood not assessed. no SI/SIBI/HI/AVH expressed. Diagnostics Vital Signs (24Hr): Vital Signs - 24 hr 07/15/24 20:00 07/15/24 20:37 07/16/24 07:30 Temperature 97.6 F 98.0 F Pulse Rate 101 H 79 Respiratory Rate 18 14 Blood Pressure 127/88 127/88 132/69 Pulse Oximetry 98 92 Oxygen Delivery Method Room Air Room Air BMI result Body Mass Index 50.2 Labs 07/14/24 08:47 Labs: Laboratory Results - last 48 hr 07/14/24 07/15/24 07/15/24 20:40 08:17 20:59 POC Glucose 138 H 123 H 172 H 07/16/24 07:36 POC Glucose 139 H Medications Medications Current Medications Acetaminophen (Acetaminophen 325 Mg Tablet) 975 mg PO Q6H PRN PRN Reason: Headache/Pain, Scale 1-10 Last Admin: 07/16/24 06:14 Dose: 975 mg Al Hydroxide/Mg Hydroxide (Magnesium Hydrox/Alum Hydrox 30 Ml Oral.Susp) 30 ml PO Q6H PRN PRN Reason: Heartburn/Nausea Amantadine HCl (Amantadine Hcl 100 Mg Capsule) 100 mg PO TID [facility] Last Admin: 07/16/24 08:33 Dose: 100 mg Aspirin (Aspirin 81 Mg Tab.Chew) 81 mg PO DAILY [facility] Last Admin: 07/16/24 08:33 Dose: 81 mg Atorvastatin Calcium (Atorvastatin Calcium 40 Mg Tablet) 40 mg PO BEDTIME [facility] Last Admin: 07/15/24 20:38 Dose: 40 mg Gabapentin (Gabapentin 100 Mg Capsule) 100 mg PO TID [facility] Last Admin: 07/16/24 08:33 Dose: 100 mg Hydroxyzine HCl (Hydroxyzine Hcl 25 Mg Tablet) 25 mg PO Q6H PRN PRN Reason: mild anxiety Last Admin: 07/14/24 17:10 Dose: 25 mg Levothyroxine Sodium (Levothyroxine Sodium 175 Mcg Tablet) 175 mcg PO DAILY@0600 [facility] Last Admin: 07/16/24 06:13 Dose: 175 mcg Loperamide HCl (Loperamide Hcl 2 Mg Capsule) 2 mg PO Q6H PRN PRN Reason: Diarrhea Lorazepam (Lorazepam 0.5 Mg Tablet) 0.5 mg PO TID PRN PRN Reason: Anxiety Last Admin: 07/15/24 09:17 Dose: 0.5 mg Magnesium Hydroxide (Milk Of Magnesia 30 Ml Oral.Susp) 30 ml PO DAILY PRN PRN Reason: Constipation Omeprazole (Omeprazole 20 Mg Capsule.Dr) 20 mg PO DAILY@0630 [facility] Last Admin: 07/16/24 06:13 Dose: 20 mg Ondansetron HCl (Ondansetron Odt 4 Mg Tab.Rapdis) 4 mg TRANSLINGU Q6H PRN PRN Reason: Nausea And Vomiting Last Admin: 07/16/24 09:15 Dose: 4 mg Prazosin HCl (Prazosin Hcl 1 Mg Capsule) 3 mg PO BEDTIME [facility]; Protocol Last Admin: 07/15/24 20:37 Dose: 3 mg Quetiapine Fumarate (Quetiapine Fumarate 400 Mg Tablet) 800 mg PO BEDTIME [facility] Last Admin: 07/15/24 20:39 Dose: 800 mg Sitagliptin Phosphate (Sitagliptin Phosphate 100 Mg Tablet) 100 mg PO DAILY [facility] Last Admin: 07/16/24 08:33 Dose: 100 mg Trazodone HCl (Trazodone Hcl 50 Mg Tablet) 50 mg PO BEDTIME MRX1 PRN PRN Reason: Insomnia Last Admin: 07/14/24 20:23 Dose: 50 mg Vitamin D (Cholecalciferol (Vitamin D3) 10 Mcg Tablet) 20 mcg PO DAILY [facility] Last Admin: 07/16/24 08:33 Dose: 20 mcg Vortioxetine (Vortioxetine Hydrobromide 10 Mg Tablet) 10 mg PO DAILY@1600 [facility] Last Admin: 07/15/24 15:12 Dose: 10 mg Zolpidem Tartrate (Zolpidem Tartrate 5 Mg Tablet) 10 mg PO BEDTIME [facility] Last Admin: 07/15/24 20:38 Dose: 10 mg Allergies Allergies Allergy/AdvReac Type Severity Reaction Status Date / Time ketorolac Allergy Unknown HEADACHES Verified 07/10/24 16:46 lithium Allergy Unknown UNKNOWN Verified 07/10/24 16:46 meperidine Allergy Unknown NAUSEA/VOMI Verified 07/10/24 16:46 TING risperidone Allergy Unknown UNKNOWN Verified 07/10/24 16:33 bee pollen Allergy Unknown Verified 07/07/24 22:04 bee venom protein (honey bee) Allergy Unknown Verified 07/07/24 22:04 bupropion Allergy Unknown Verified 07/07/24 22:04 chlorproethazine Allergy Unknown Verified 07/07/24 22:04 chlorpromazine Allergy Unknown Verified 07/07/24 22:04 lurasidone Allergy Unknown Verified 07/07/24 22:04 mirtazapine Allergy Unknown Verified 07/07/24 22:04 thioridazine [From Mellaril] Allergy Unknown Verified 07/07/24 22:04 ziprasidone Allergy Unknown Verified 07/07/24 22:04 Assessment & Plan Assessment & Plan (1) Borderline personality disorder: Status: Acute Code(s): F60.3 - Borderline personality disorder (2) Chronic post-traumatic stress disorder (PTSD): Status: Acute Code(s): F43.12 - Post-traumatic stress disorder, chronic (3) RAJESH (acute kidney injury): Status: Acute Code(s): N17.9 - Acute kidney failure, unspecified Plan 07/12: Continue Trintellix Seroquel at bedtime gabapentin 100 t.i.d. thyroid replacement. Metformin on hold till clear that renal function has normalized check chemistries in the a.m. Will need strong discharge planning to make sure support system in place unclear if respite transition possible. 07/13: appears she is doing well, wants to stay through early next week to do group work. check BMP, restart metformin if Cr normalized. POC trending up. remove colton 07/16. 07/14: States she is benefiting from attending groups. some anxiety. Wound consult placed. continue tx plan. 07/14: feels good. enjoying groups. plans for dc next week. continue current tx plan 07/15 continue tx. Reason for continued inpatient stay Substantial Risk for: inability to function Time Spent With Patient Time: Total time managing care of this patient today ____ minutes.
[2024-07-16] MEDS: Vortioxetine Hydrobromide 10 MG TABLET PO (16:09)
[2024-07-16 20:00] VITALS: BP 136/84; PULSE 74; RESP 18; TEMP 36.4; O2SAT 97
[2024-07-16] MEDS: Prazosin HCL 1 MG CAPSULE 3 MG PO (20:18)
[2024-07-16] MEDS: Zolpidem Tartrate 5 MG TABLET 10 MG PO (20:18)
[2024-07-16] MEDS: hydrOXYzine HCL 25 MG TABLET PO (20:19)
[2024-07-16] MEDS: QUEtiapine Fumarate 400 MG TABLET 800 MG PO (20:19)
[2024-07-16] MEDS: traZODone HCL 50 MG TABLET PO (20:19)
[2024-07-16] MEDS: Atorvastatin Calcium 40 MG TABLET PO (20:19)
[2024-07-16 20:47] LABS: Glucose, Whole Blood 107 mg/dL (60-115)
[2024-07-17] MEDS: Levothyroxine Sodium 175 MCG TABLET PO (06:22)
[2024-07-17] MEDS: Omeprazole 20 MG CAPSULE.DR PO (06:22)
[2024-07-17 08:00] VITALS: BP 128/58; PULSE 80; TEMP 36.9; O2SAT 95
[2024-07-17 08:03] LABS: Glucose, Whole Blood 160 mg/dL (60-115)
[2024-07-17] MEDS: Cholecalciferol (Vitamin D3) 10 MCG TABLET 20 MCG PO (08:59)
[2024-07-17] MEDS: Aspirin 81 MG TAB.CHEW PO (09:04)
[2024-07-17] MEDS: Acetaminophen 325 MG TABLET 975 MG PO ×2 (09:04→20:12)
[2024-07-17] MEDS: amantadine HCL 100 MG CAPSULE PO ×3 (09:04→20:13)
[2024-07-17] MEDS: SITagliptin Phosphate 100 MG TABLET PO (09:05)
[2024-07-17] MEDS: Gabapentin 100 MG CAPSULE PO ×3 (09:05→20:13)
[2024-07-17] MEDS: Sennosides/Docusate Sodium TABLET 1 TAB PO (09:18)
--- NOTE | 2024-07-17 11:42 | P.PNPSI_ITS ---
Subjective Subjective Date of Service: 07/17/24 Reason For Visit: depressed si Subjective Notes: Conditional Voluntary Interim History: Pt slept through the night. She reports mentally doing very well. No SI/HI. She reports severe pain Left upper quadrant, radiates to back. visible not in severe pain, but will consult hospitalist. Mental Status Exam Mental Status Exam Narrative: obese, wearing hospital evy. disheveled. calm, cooperative. expressing remorse and shame. no PMA/PMR. speech incr rate and amount, normal loudness, decr latency. thoughts linear and logical without delusions or paranoia. affect constricted, normo-intense, non-labile. mood not assessed. no SI/SIBI/HI/AVH expressed. Diagnostics Vital Signs (24Hr): Vital Signs - 24 hr 07/16/24 20:00 07/17/24 08:00 Temperature 97.6 F 98.5 F Pulse Rate 74 80 Respiratory Rate 18 Blood Pressure 136/84 128/58 L Pulse Oximetry 97 95 Oxygen Delivery Method Room Air Room Air BMI result Body Mass Index 50.2 Labs 07/14/24 08:47 Labs: Laboratory Results - last 48 hr 07/15/24 07/16/24 07/16/24 20:59 07:36 20:40 POC Glucose 172 H 139 H 107 07/17/24 07:58 POC Glucose 160 H Medications Medications Current Medications Acetaminophen (Acetaminophen 325 Mg Tablet) 975 mg PO Q6H PRN PRN Reason: Headache/Pain, Scale 1-10 Last Admin: 07/17/24 09:04 Dose: 975 mg Al Hydroxide/Mg Hydroxide (Magnesium Hydrox/Alum Hydrox 30 Ml Oral.Susp) 30 ml PO Q6H PRN PRN Reason: Heartburn/Nausea Amantadine HCl (Amantadine Hcl 100 Mg Capsule) 100 mg PO TID [facility] Last Admin: 07/17/24 09:04 Dose: 100 mg Aspirin (Aspirin 81 Mg Tab.Chew) 81 mg PO DAILY [facility] Last Admin: 07/17/24 09:04 Dose: 81 mg Atorvastatin Calcium (Atorvastatin Calcium 40 Mg Tablet) 40 mg PO BEDTIME [facility] Last Admin: 07/16/24 20:19 Dose: 40 mg Gabapentin (Gabapentin 100 Mg Capsule) 100 mg PO TID [facility] Last Admin: 07/17/24 09:05 Dose: 100 mg Hydroxyzine HCl (Hydroxyzine Hcl 25 Mg Tablet) 25 mg PO Q6H PRN PRN Reason: mild anxiety Last Admin: 07/16/24 20:19 Dose: 25 mg Levothyroxine Sodium (Levothyroxine Sodium 175 Mcg Tablet) 175 mcg PO DAILY@0600 [facility] Last Admin: 07/17/24 06:22 Dose: 175 mcg Loperamide HCl (Loperamide Hcl 2 Mg Capsule) 2 mg PO Q6H PRN PRN Reason: Diarrhea Lorazepam (Lorazepam 0.5 Mg Tablet) 0.5 mg PO TID PRN PRN Reason: Anxiety Last Admin: 07/15/24 09:17 Dose: 0.5 mg Magnesium Hydroxide (Milk Of Magnesia 30 Ml Oral.Susp) 30 ml PO DAILY PRN PRN Reason: Constipation Omeprazole (Omeprazole 20 Mg Capsule.Dr) 20 mg PO DAILY@0630 [facility] Last Admin: 07/17/24 06:22 Dose: 20 mg Ondansetron HCl (Ondansetron Odt 4 Mg Tab.Rapdis) 4 mg TRANSLINGU Q6H PRN PRN Reason: Nausea And Vomiting Last Admin: 07/16/24 09:15 Dose: 4 mg Prazosin HCl (Prazosin Hcl 1 Mg Capsule) 3 mg PO BEDTIME [facility]; Protocol Last Admin: 07/16/24 20:18 Dose: 3 mg Quetiapine Fumarate (Quetiapine Fumarate 400 Mg Tablet) 800 mg PO BEDTIME [facility] Last Admin: 07/16/24 20:19 Dose: 800 mg Senna/Docusate Sodium (Sennosides/Docusate Sodium Tablet) 1 tab PO BID PRN PRN Reason: Constipation Last Admin: 07/17/24 09:18 Dose: 1 tab Sitagliptin Phosphate (Sitagliptin Phosphate 100 Mg Tablet) 100 mg PO DAILY [facility] Last Admin: 07/17/24 09:05 Dose: 100 mg Trazodone HCl (Trazodone Hcl 50 Mg Tablet) 50 mg PO BEDTIME MRX1 PRN PRN Reason: Insomnia Last Admin: 07/16/24 20:19 Dose: 50 mg Vitamin D (Cholecalciferol (Vitamin D3) 10 Mcg Tablet) 20 mcg PO DAILY [facility] Last Admin: 07/17/24 08:59 Dose: 20 mcg Vortioxetine (Vortioxetine Hydrobromide 10 Mg Tablet) 10 mg PO DAILY@1600 [facility] Last Admin: 07/16/24 16:09 Dose: 10 mg Zolpidem Tartrate (Zolpidem Tartrate 5 Mg Tablet) 10 mg PO BEDTIME [facility] Last Admin: 07/16/24 20:18 Dose: 10 mg Allergies Allergies Allergy/AdvReac Type Severity Reaction Status Date / Time ketorolac Allergy Unknown HEADACHES Verified 07/10/24 16:46 lithium Allergy Unknown UNKNOWN Verified 07/10/24 16:46 meperidine Allergy Unknown NAUSEA/VOMI Verified 07/10/24 16:46 TING risperidone Allergy Unknown UNKNOWN Verified 07/10/24 16:33 bee pollen Allergy Unknown Verified 07/07/24 22:04 bee venom protein (honey bee) Allergy Unknown Verified 07/07/24 22:04 bupropion Allergy Unknown Verified 07/07/24 22:04 chlorproethazine Allergy Unknown Verified 07/07/24 22:04 chlorpromazine Allergy Unknown Verified 07/07/24 22:04 lurasidone Allergy Unknown Verified 07/07/24 22:04 mirtazapine Allergy Unknown Verified 07/07/24 22:04 thioridazine [From Mellaril] Allergy Unknown Verified 07/07/24 22:04 ziprasidone Allergy Unknown Verified 07/07/24 22:04 Assessment & Plan Assessment & Plan (1) Borderline personality disorder: Status: Acute Code(s): F60.3 - Borderline personality disorder (2) Chronic post-traumatic stress disorder (PTSD): Status: Acute Code(s): F43.12 - Post-traumatic stress disorder, chronic (3) RAJESH (acute kidney injury): Status: Acute Code(s): N17.9 - Acute kidney failure, unspecified Plan 07/12: Continue Trintellix Seroquel at bedtime gabapentin 100 t.i.d. thyroid replacement. Metformin on hold till clear that renal function has normalized check chemistries in the a.m. Will need strong discharge planning to make sure support system in place unclear if respite transition possible. 07/13: appears she is doing well, wants to stay through early next week to do group work. check BMP, restart metformin if Cr normalized. POC trending up. remove colton 07/16. 07/14: States she is benefiting from attending groups. some anxiety. Wound consult placed. continue tx plan. 07/14: feels good. enjoying groups. plans for dc next week. continue current tx plan 07/15 continue tx. 07/16 continue tx. Reason for continued inpatient stay Substantial Risk for: inability to function Time Spent With Patient Time: Total time managing care of this patient today ____ minutes.
[2024-07-17] MEDS: Vortioxetine Hydrobromide 10 MG TABLET PO (15:22)
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
[2024-07-17 20:00] VITALS: BP 129/79; PULSE 73; RESP 18; TEMP 36.3; O2SAT 95
[2024-07-17] MEDS: Zolpidem Tartrate 5 MG TABLET 10 MG PO (20:12)
[2024-07-17 20:13] VITALS: BP 136/67
[2024-07-17] MEDS: QUEtiapine Fumarate 400 MG TABLET 800 MG PO (20:13)
[2024-07-17] MEDS: Prazosin HCL 1 MG CAPSULE 3 MG PO (20:13)
[2024-07-17] MEDS: Atorvastatin Calcium 40 MG TABLET PO (20:13)
[2024-07-17] MEDS: traZODone HCL 50 MG TABLET PO (20:13)
[2024-07-17] MEDS: LORazepam 0.5 MG TABLET PO (20:13)
[2024-07-17 20:31] LABS: Glucose, Whole Blood 139 mg/dL (60-115)
[2024-07-18] MEDS: Acetaminophen 325 MG TABLET 975 MG PO ×2 (02:57→08:39)
[2024-07-18] MEDS: traZODone HCL 50 MG TABLET PO ×2 (03:00→20:48)
[2024-07-18] MEDS: Levothyroxine Sodium 175 MCG TABLET PO (06:00)
[2024-07-18] MEDS: Omeprazole 20 MG CAPSULE.DR PO (07:00)
[2024-07-18 07:45] LABS: Glucose, Whole Blood 118 mg/dL (60-115)
[2024-07-18 07:53] VITALS: BP 133/93; PULSE 76; RESP 16; TEMP 36.4; O2SAT 94
[2024-07-18 08:26] LABS: Hematocrit 35.3 % (37.0-47.0); Hemoglobin 11.5 g/dl (12.0-16.0); Mean Corpuscular HGB Conc 32.6 g/dl (31.0-35.0); Mean Corpuscular Hemoglobin 30.9 pg (27.0-33.0); Mean Corpuscular Volume 94.9 fL (80.0-98.0); Mean Platelet Volume 9.8 fL (9.4-12.3); Platelet Count 146 X10*3/uL (160-400); Red Blood Count 3.72 X10*6/uL (4.20-5.50); Red Cell Distribution Width 13.1 % (11.0-16.0); White Blood Count 7.5 X10*3/uL (4.8-10.8)
[2024-07-18 08:36] LABS: Alanine Aminotransferase 15 U/L (0-31); Alkaline Phosphatase 84 U/L (39-117); Anion Gap 11 (12-20); Aspartate Amino Transferase 20 U/L (5-31); Bilirubin Total 0.4 mg/dL (0.0-1.0); Blood Urea Nitrogen 20 mg/dL (9-16); Calcium 9.1 mg/dL (8.4-10.2); Carbon Dioxide 30 mmol/L (22-29); Chloride 106 mmol/L (96-108); Creatinine Clr Calc Pharmacy 62.6; Estimated Glomerular Filt Rate 39; Glucose Random 120 mg/dL (60-115); Lipase 20 U/L (8-78); Potassium 4.7 mmol/L (3.3-5.1); Sodium 142 mmol/L (135-145); Total Protein 7.1 g/dL (6.5-8.0)
[2024-07-18] MEDS: Gabapentin 100 MG CAPSULE PO ×3 (08:39→20:49)
[2024-07-18] MEDS: Cholecalciferol (Vitamin D3) 10 MCG TABLET 20 MCG PO (08:39)
[2024-07-18] MEDS: amantadine HCL 100 MG CAPSULE PO ×3 (08:39→20:48)
[2024-07-18] MEDS: SITagliptin Phosphate 100 MG TABLET PO (08:39)
[2024-07-18] MEDS: Aspirin 81 MG TAB.CHEW PO (08:39)
[2024-07-18] MEDS: Sennosides/Docusate Sodium TABLET 1 TAB PO (09:22)
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
[2024-07-18] MEDS: polyethylene glycoL 3350 17 GM POWD.PACK PO (13:47)
[2024-07-18] MEDS: Cyanocobalamin (Vitamin B-12) 1,000 MCG TABLET 1000 MCG PO (13:47)
[2024-07-18] MEDS: Vortioxetine Hydrobromide 10 MG TABLET PO (15:25)
[2024-07-18] MEDS: Ibuprofen 600 MG TABLET PO (17:37)
[2024-07-18 20:45] VITALS: BP 159/91; PULSE 70; RESP 16; TEMP 36.6; O2SAT 97
[2024-07-18] MEDS: Prazosin HCL 1 MG CAPSULE 3 MG PO (20:47)
[2024-07-18] MEDS: LORazepam 0.5 MG TABLET PO (20:48)
[2024-07-18] MEDS: Zolpidem Tartrate 5 MG TABLET 10 MG PO (20:49)
[2024-07-18] MEDS: Atorvastatin Calcium 40 MG TABLET PO (20:49)
[2024-07-18] MEDS: QUEtiapine Fumarate 400 MG TABLET 800 MG PO (20:49)
[2024-07-18 21:49] LABS: Glucose, Whole Blood 129 mg/dL (60-115)
[2024-07-19] MEDS: Levothyroxine Sodium 175 MCG TABLET PO (06:35)
[2024-07-19] MEDS: Acetaminophen 325 MG TABLET 975 MG PO (06:35)
[2024-07-19 08:00] VITALS: BP 158/73; PULSE 77; RESP 14; TEMP 36.6; O2SAT 97
[2024-07-19] MEDS: Gabapentin 100 MG CAPSULE PO (08:26)
[2024-07-19] MEDS: Cholecalciferol (Vitamin D3) 10 MCG TABLET 20 MCG PO (08:26)
[2024-07-19] MEDS: amantadine HCL 100 MG CAPSULE PO (08:26)
[2024-07-19] MEDS: Aspirin 81 MG TAB.CHEW PO (08:26)
[2024-07-19] MEDS: SITagliptin Phosphate 100 MG TABLET PO (08:26)
[2024-07-19] MEDS: Omeprazole 20 MG CAPSULE.DR PO (08:27)
[2024-07-19] MEDS: Cyanocobalamin (Vitamin B-12) 1,000 MCG TABLET 1000 MCG PO (08:30)
[2024-07-19 08:43] LABS: Glucose, Whole Blood 118 mg/dL (60-115)
== END 2024-07-19 10:35 | disposition home or self-care (01) | DRG 883 ==
PROVIDERS: Psychiatry & Neurology Psychiatry; Student in an Organized Health Care Education/Training Program; Admitting Provider Internal Medicine; Visit Provider Psychiatry & Neurology Psychiatry
DX: F60.3 Borderline personality disorder (principal); R45.851 Suicidal ideations; N17.9 Acute kidney failure, unspecified; E03.9 Hypothyroidism, unspecified; E11.9 Type 2 diabetes mellitus without complications; F43.12 Post-traumatic stress disorder, chronic; Z23 Encounter for immunization; Z79.82 Long term (current) use of aspirin; Z79.890 Hormone replacement therapy; Z79.899 Other long term (current) drug therapy
CPT/HCPCS: 36415; 74018; 80048; 80053; 80061; 82607; 82746; 82947; 83690; 84443; 85027; 90656

== ENCOUNTER → 2024-07-12 11:53 | Outpatient (BNV) | payer MEDICARE, MEDICAID, SELFPAY | PROVIDERS: Admitting Provider Internal Medicine; Visit Provider Psychiatry & Neurology Psychiatry | DX: F60.3 Borderline personality disorder (principal); F43.12 Post-traumatic stress disorder, chronic; N17.9 Acute kidney failure, unspecified | CPT/HCPCS: 99232 ==

== ENCOUNTER → 2024-07-12 11:53 | Outpatient (BNV) | payer MEDICARE, MEDICAID, SELFPAY | PROVIDERS: Admitting Provider Internal Medicine; Visit Provider Psychiatry & Neurology Psychiatry | DX: F60.3 Borderline personality disorder (principal); F43.12 Post-traumatic stress disorder, chronic; N17.9 Acute kidney failure, unspecified | CPT/HCPCS: 90792 ==